=== PATIENT | male | born 1950 | race Caucasian/White ===

== ENCOUNTER → 2018-01-13 | Outpatient (CLI) | payer MEDICARE ==
--- NOTE | 2018-01-22 14:12 | MR ---
EXAMINATION TYPE: MR brain wo/w con DATE OF EXAM: 01/13/2018 9:10 AM COMPARISON: Outside report dated 09/26/2016. Previous outside study has been requested however has not arrived. An addendum will gladly be issued when and if the prior study is available for review. HISTORY: Hydrocephalus, unspecified CONTRAST: Patient received 12.5 mL intravenous Gadavist gadolinium contrast. Multiplanar and multispin-echo imaging of the brain was performed . Pre and post contrast enhanced i mages are obtained. The ventricles, basal cisterns and sulci overlying the cerebral convexities are moderately enlarged. Right parietal occipital approach ventriculostomy catheter is noted. There is accompanying susceptib ility artifact which limits evaluation in the surrounding region. There is evidence of mild periventricular white matter ischemic demyelination. Remote deep white matter insults are also noted. No acute edema is seen on diffusion weighted imaging. There is no evidence for midline shift or mass effect. Acute intracranial hemorrhage or extra-axial collection is not evident. Previously noted subdural c ollection on the left has resolved in the interval. No dural thickening present at this time. No enhancing lesions are seen. The paranasal sinuses and mastoid air cells are well-aerated. IMPRESSION: 1. Moderate ventricular caliber. 2. Right-sided parietal occipital approach ventriculostomy catheter. 3. Periventricular white matter ischemic demyelination is noted. 4. Previously described left-sided subdural collection has resolved. No dural thickening seen at this time.
== END | disposition home or self-care (01) ==
LOC: RADMRIMAIN 07:47
PROVIDERS: ATTEND Internal Medicine
DX: G37.8 Other specified demyelinating diseases of central nervous system (principal); R90.89 Other abnormal findings on diagnostic imaging of central nervous system; Z98.2 Presence of cerebrospinal fluid drainage device; G91.1 Obstructive hydrocephalus
CPT/HCPCS: 82565; 70553; 36415; A9581

== ENCOUNTER 2018-09-25 10:07 | Emergency (ER) | payer MEDICARE ==
[2018-09-25] MEDS ORDERED: SODIUM CHLORIDE 0.9% 500 ML 500 ML IV ONE (10:37)
[2018-09-25 10:51] LABS: Anisocytosis Slight; Basophils % (A) 0 %; Eosinophils # (A) 0.1 k/uL (0-0.7); Eosinophils % (A) 3 %; HCT 20.3 % (39.0-53.0); Hypochromasia Slight; Lymphocytes # (A) 0.5 k/uL (1.0-4.8); Lymphocytes % (A) 13 %; MCH 31.3 pg (25.0-35.0); MCHC 32.4 g/dL (31.0-37.0); MCV 96.4 fL (80.0-100.0); Macrocytosis Slight; Mean Platelet Volume 7.4; Monocytes # (A) 0.2 k/uL (0-1.0); Monocytes % (A) 5 %; Neutrophils # (A) 2.9 k/uL (1.3-7.7); Neutrophils % (A) 74 %; Platelet Count 180 k/uL (150-450); Poikilocytosis Slight; RDW 18.4 % (11.5-15.5); WBC 3.8 k/uL (3.8-10.6)
--- NOTE | 2018-09-25 10:53 | ED ---
General Adult HPI - General Chief complaint: Recheck/Abnormal Lab/Rx Stated complaint: low hemoglobin Time Seen by Provider: 09/25/18 10:10 Source: patient, family, EMS, RN notes reviewed Mode of arrival: EMS Limitations: no limitations - History of Present Illness Initial comments: This a 67-year-old male who presents emergency Department with a past medical history significant for normal pressure hydrocephalus patient states he does have a stent in place. Patient comes in today because the doctor sent him in because his hemoglobin is low. According to the though he has been having hallucinating auditorily and visually. Patient is also been a little unstable on his feet as well as had a little bit of incontinence over the last couple of weeks. states she's also experienced extreme tiredness and fatigue. Patient states he has not had any low hemoglobin in the past he has not had any kidney failure in the past. Patient did state he fell a few months ago and has a large lump on the right lower back above the pelvis and he was told it was a probable hematoma but is still there and is going down but it is still there. Patient denies any recent fever chills or cough per patient denies any chest pain difficulty breathing or shortness of breath. Patient states he does get short of breath if he exerts himself. Patient denies any leg swelling or Tenderness. Patient denies abdominal pain. - Related Data Home Medications Medication Instructions Recorded Confirmed Apixaban [Eliquis] 5 mg PO DAILY 09/25/18 09/25/18 Aspirin [[place] Aspirin EC] 81 mg PO DAILY 09/25/18 09/25/18 Carvedilol [Coreg] 12.5 mg PO BID 09/25/18 09/25/18 Lisinopril [Prinivil] 20 mg PO DAILY 09/25/18 09/25/18 Lovastatin [Mevacor] 20 mg PO DAILY 09/25/18 09/25/18 Tiotropium [place] [Spiriva] 1 cap INHALATION DAILY PRN 09/25/18 09/25/18 Vit C/E/Zn/Coppr/Lutein/Zeaxan 1 cap PO DAILY 09/25/18 09/25/18 [Preservision Areds 2 Softgel] buPROPion XL [Wellbutrin Xl] 300 mg PO DAILY 09/25/18 09/25/18 metFORMIN HCL [Glucophage] 1,000 mg PO BID 09/25/18 09/25/18 Allergies Allergy/AdvReac Type Severity Reaction Status Date / Time No Known Allergies Allergy Verified 09/25/18 10:33 Review of Systems ROS Statement: Those systems with pertinent positive or pertinent negative responses have been documented in the HPI. ROS Other: All systems not noted in ROS Statement are negative. 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 Patient is nontoxic and well- hydrated and is in mild distress. ENT: There is no thyroid enlargement and no masses were felt. EYES: The sclera were anicteric and conjunctiva were pink and moist. Extraocular movements were intact and pupils were equal round and reactive to light. Eyelids were unremarkable. PULMONARY: Unlabored respirations. Good breath sounds bilaterally. No audible rales rh onchi or wheezing was noted. CARDIOVASCULAR: There is a regular rate and rhythm without any murmurs gallops or rubs. RECTAL: Rectal exam had normal looking brown stool no obvious abnormalities were seen. ABDOMEN: Soft and nontender with normal bowel sounds. No palpable organomegaly was noted. There is no palpable pulsatile mass. SKIN: Skin was pale NEUROLOGIC: Patient is alert and oriented x3. Cranial nerves II through XII are grossly intact. Motor and sensory are also intact. Normal speech, volume and content. Symmetrical smile. MUSCULOSKELETAL: Normal extremities with adequate strength and full range of motion. No lower extremity swelling or edema. No calf tenderness. LYMPHATICS: No significant lymphadenopathy is noted PSYCHIATRIC: Patient agrees he's been having auditory and visual hallucinations. Limitations: no limitations Course Vital Signs 09/25/18 09/25/18 09/25/18 10:08 11:00 11:30 Temperature 97.8 F Pulse Rate 81 74 78 Respiratory 18 18 18 Rate Blood Pressure 112/67 105/67 114/72 O2 Sat by Pulse 98 98 99 Oximetry 09/25/18 12:00 Temperature Pulse Rate 69 Respiratory 19 Rate Blood Pressure 105/67 O2 Sat by Pulse 98 Oximetry Medical Decision Making - Medical Decision Making EKG shows normal sinus rhythm at 69 bpm LA interval is 164 QRS is 102 QT interval 384 QTC is 411. Patient's EKG shows no ST segment elevation or depression or T wave abnormalities are noted. CT of the brain shows no signs of hydrocephalus. CT of the abdomen shows questionable left lower quadrant diverticulitis however patient has no pain no white count no fever. Chest x-ray shows no acute abnormalities. Patient's guaiac was negative but he was anemic. I gave the patient 1 unit of blood prior to transfer. Family wanted to be transferred to [facility]. I spoke with Dr. Gonzalez at [facility] today except the patient I transfer the patient. - Lab Data Result diagrams: 09/25/18 10:20 09/25/18 10:40 Lab Results 09/25/18 09/25/18 09/25/18 Range/Units 10:20 10:20 10:30 WBC 3.8 (3.8-10.6) k/uL RBC 2.10 L (4.30-5.90) m/uL Hgb 6.6 L* (13.0-17.5) gm/dL Hct 20.3 L (39.0-53.0) % MCV 96.4 (80.0-100.0) fL MCH 31.3 (25.0-35.0) pg MCHC 32.4 (31.0-37.0) g/dL RDW 18.4 H (11.5-15.5) % Plt Count 180 (150-450) k/uL Neutrophils % 74 % Lymphocytes % 13 % Monocytes % 5 % Eosinophils % 3 % Basophils % 0 % Neutrophils # 2.9 (1.3-7.7) k/uL Lymphocytes # 0.5 L (1.0-4.8) k/uL Monocytes # 0.2 (0-1.0) k/uL Eosinophils # 0.1 (0-0.7) k/uL Basophils # 0.0 (0-0.2) k/uL Hypochromasia Slight Poikilocytosis Slight Anisocytosis Slight Macrocytosis Slight PT (9.0-12.0) sec INR (<1.2) APTT (22.0-30.0) sec Sodium (137-145) mmol/L Potassium (3.5-5.1) mmol/L Chloride (98-107) mmol/L Carbon Dioxide (22-30) mmol/L Anion Gap mmol/L BUN (9-20) mg/dL Creatinine (0.66-1.25) mg/dL Est GFR (CKD-EPI)AfAm (>60 ml/min/1.73 sqM) Est GFR (CKD-EPI)NonAf (>60 ml/min/1.73 sqM) Glucose (74-99) mg/dL Calcium (8.4-10.2) mg/dL Total Bilirubin (0.2-1.3) mg/dL AST (17-59) U/L ALT (21-72) U/L Alkaline Phosphatase (38-126) U/L Troponin I (0.000-0.034) ng/mL Total Protein (6.3-8.2) g/dL Albumin (3.5-5.0) g/dL Urine Color Urine Appearance (Clear) Urine pH (5.0-8.0) Ur Specific [place] (1.001-1.035) Urine Protein (Negative) Urine Glucose (UA) (Negative) Urine Ketones (Negative) Urine Blood (Negative) Urine Nitrite (Negative) Urine Bilirubin (Negative) Urine Urobilinogen (<2.0) mg/dL Ur Leukocyte Esterase (Negative) Urine WBC (0-5) /hpf Urine Mucus (None) /hpf Stool Occult Blood (Negative) Blood Type O Positive Blood Type Confirm O Positive Blood Type Recheck CABO Indicated Antibody Screen NEGATIVE Crossmatch See Detail Spec Expiration Date 09/28/2018233609/25/18 09/25/18 09/25/18 Range/Units 10:40 10:40 10:40 WBC (3.8-10.6) k/uL RBC (4.30-5.90) m/uL Hgb (13.0-17.5) gm/dL Hct (39.0-53.0) % MCV (80.0-100.0) fL MCH (25.0-35.0) pg MCHC (31.0-37.0) g/dL RDW (11.5-15.5) % Plt Count (150-450) k/uL Neutrophils % % Lymphocytes % % Monocytes % % Eosinophils % % Basophils % % Neutrophils # (1.3-7.7) k/uL Lymphocytes # (1.0-4.8) k/uL Monocytes # (0-1.0) k/uL Eosinophils # (0-0.7) k/uL Basophils # (0-0.2) k/uL Hypochromasia Poikilocytosis Anisocytosis Macrocytosis PT 12.4 H (9.0-12.0) sec INR 1.2 H (<1.2) APTT 20.7 L (22.0-30.0) sec Sodium 139 (137-145) mmol/L Potassium 3.7 (3.5-5.1) mmol/L Chloride 107 (98-107) mmol/L Carbon Dioxide 23 (22-30) mmol/L Anion Gap 9 mmol/L BUN 22 H (9-20) mg/dL Creatinine 2.04 H (0.66-1.25) mg/dL Est GFR (CKD-EPI)AfAm 37 (>60 ml/min/1.73 sqM) Est GFR (CKD-EPI)NonAf 32 (>60 ml/min/1.73 sqM) Glucose 139 H (74-99) mg/dL Calcium 10.0 (8.4-10.2) mg/dL Total Bilirubin 0.5 (0.2-1.3) mg/dL AST 26 (17-59) U/L ALT 37 (21-72) U/L Alkaline Phosphatase 114 (38-126) U/L Troponin I 0.062 H* (0.000-0.034) ng/mL Total Protein 8.1 (6.3-8.2) g/dL Albumin 3.1 L (3.5-5.0) g/dL Urine Color Urine Appearance (Clear) Urine pH (5.0-8.0) Ur Specific [place] (1.001-1.035) Urine Protein (Negative) Urine Glucose (UA) (Negative) Urine Ketones (Negative) Urine Blood (Negative) Urine Nitrite (Negative) Urine Bilirubin (Negative) Urine Urobilinogen (<2.0) mg/dL Ur Leukocyte Esterase (Negative) Urine WBC (0-5) /hpf Urine Mucus (None) /hpf Stool Occult Blood (Negative) Blood Type Blood Type Confirm Blood Type Recheck Antibody Screen Crossmatch Spec Expiration Date 09/25/18 09/25/18 Range/Units 10:40 13:27 WBC (3.8-10.6) k/uL RBC (4.30-5.90) m/uL Hgb (13.0-17.5) gm/dL Hct (39.0-53.0) % MCV (80.0-100.0) fL MCH (25.0-35.0) pg MCHC (31.0-37.0) g/dL RDW (11.5-15.5) % Plt Count (150-450) k/uL Neutrophils % % Lymphocytes % % Monocytes % % Eosinophils % % Basophils % % Neutrophils # (1.3-7.7) k/uL Lymphocytes # (1.0-4.8) k/uL Monocytes # (0-1.0) k/uL Eosinophils # (0-0.7) k/uL Basophils # (0-0.2) k/uL Hypochromasia Poikilocytosis Anisocytosis Macrocytosis PT (9.0-12.0) sec INR (<1.2) APTT (22.0-30.0) sec Sodium (137-145) mmol/L Potassium (3.5-5.1) mmol/L Chloride (98-107) mmol/L Carbon Dioxide (22-30) mmol/L Anion Gap mmol/L BUN (9-20) mg/dL Creatinine (0.66-1.25) mg/dL Est GFR (CKD-EPI)AfAm (>60 ml/min/1.73 sqM) Est GFR (CKD-EPI)NonAf (>60 ml/min/1.73 sqM) Glucose (74-99) mg/dL Calcium (8.4-10.2) mg/dL Total Bilirubin (0.2-1.3) mg/dL AST (17-59) U/L ALT (21-72) U/L Alkaline Phosphatase (38-126) U/L Troponin I (0.000-0.034) ng/mL Total Protein (6.3-8.2) g/dL Albumin (3.5-5.0) g/dL Urine Color Light Yellow Urine Appearance Clear (Clear) Urine pH 6.5 (5.0-8.0) Ur Specific [place] 1.012 (1.001-1.035) Urine Protein 1+ H (Negative) Urine Glucose (UA) 2+ H (Negative) Urine Ketones Negative (Negative) Urine Blood Trace H (Negative) Urine Nitrite Negative (Negative) Urine Bilirubin Negative (Negative) Urine Urobilinogen <2.0 (<2.0) mg/dL Ur Leukocyte Esterase Negative (Negative) Urine WBC 1 (0-5) /hpf Urine Mucus Rare H (None) /hpf Stool Occult Blood Negative (Negative) Blood Type Blood Type Confirm Blood Type Recheck Antibody Screen Crossmatch Spec Expiration Date Critical Care Time Critical Care Time: Yes Total Critical Care Time: 35 Disposition Clinical Impression: Anemia, Normal pressure hydrocephalus, Altered mental status Disposition: OTHER INSTITUTION NOT DEFINED Referrals: Jane Escobar MD [Primary Care Provider] - 1-2 days Time of Disposition: 14:11 - Out of Hospital Transfer - Req. Specs Out of Hospital Transfer - Requested Specifics: Other Emergency Center ([facility])
[2018-09-25 10:58] LABS: HGB 6.6 gm/dL (13.0-17.5)
[2018-09-25 11:06] LABS: INR 1.2 (<1.2); Prothrombin Time 12.4 sec (9.0-12.0)
--- NOTE | 2018-09-25 11:09 | CT ---
EXAMINATION TYPE: CT brain wo con DATE OF EXAM: 09/25/2018 COMPARISON: MRI brain 09/26/2016 INDICATION: Weakness and fatigue. DLP: 1158.4 mGycm, Automated exposure control for dose reduction was used. CONTRAST: None CT of the brain is performed utilizing 3 mm thick sections through the posterior fossa and 3 mm thick sections through the remaining calvarium. Study is performed within 24 hours of arrival to the hosp ital. No abnormal hyperdensity is present to suggest an acute intracranial hemorrhage. No mass lesion is evident. No acute infarcts are evident. Some periventricular white matter hypodensity is likely present most l ikely on the basis of chronic white matter ischemic changes. Note is made of a shunt catheter within the right parietal-occipital region extending into the right lateral ventricle. Ventricles and sulci are slightly prominent for the patient age. Paranasal sinuses and mastoid air cells within the [id number]-aj-mide are clear. IMPRESSIONS: 1. Stable shunt catheter on the right. No temporal horn dilatation to suggest hydrocephalus is evid ent. 2. Mild periventricular white matter ischemic type changes.
--- NOTE | 2018-09-25 11:11 | XR ---
EXAMINATION TYPE: XR chest 2V DATE OF EXAM: 09/25/2018 COMPARISON: None INDICATION: Low hemoglobin hypertension TECHNIQUE: Frontal and lateral views of the chest are obtained. FINDINGS: The heart size is mildly prominent. The pulmonary vasculature is normal. The lungs are clear. Catheter transverses the thorax on the right. IMPRESSION: 1. No acute pulmonary process. 2. Mild prominence of cardiomediastinal silhouette.
[2018-09-25 11:14] LABS: Albumin 3.1 g/dL (3.5-5.0); Potassium 3.7 mmol/L (3.5-5.1); Total Bilirubin 0.5 mg/dL (0.2-1.3); Total Protein 8.1 g/dL (6.3-8.2)
[2018-09-25 11:27] LABS: Partial Thromboplastin Time 20.7 sec (22.0-30.0)
--- NOTE | 2018-09-25 12:10 | CT ---
EXAMINATION TYPE: CT abdomen pelvis wo con DATE OF EXAM: 09/25/2018 COMPARISON: None INDICATION: Weakness, fatigue and low back pain DLP: 1323.4 mGycm, Automated exposure control for dose reduction was used. CONTRAST: 0 mL of Isovue 300. Study performed without Oral Contrast TECHNIQUE: Axial images were obtained from above the diaphragm to the pubic rami in the axial plane a t 5 mm thick sections. Reconstructed images are reviewed on the computer in the coronal plane. FINDINGS: Limited CT sections are obtained the lung bases. The lung bases are clear. Coronary artery calcific ations present. CT ABDOMEN: Liver: Normal Spleen: Normal Pancreas: Normal Adrenal glands: The adrenal glands are normal. Gallbladder: Normal Kidneys: No masses are evident. No hydronephrosis is present. There may be a 2.5 cm cyst in the ant erior mid right kidney measuring 22 Hounsfield units. This is not a simple cyst monitoring is recomme nded. Small cortical renal cysts likely at the inferior anterior pole right kidney. Delayed images w ere obtained through the kidneys, which remain unremarkable. Aorta: Vascular calcification is within the aorta. Inferior vena cava: Normal. CT PELVIS: Loops of bowel within the abdomen and pelvis are normal. Loops of bowel are without contrast caus ing limitation of the evaluation. Note is made of scattered diverticuli throughout the sigmoid colon. Some minimal inflammatory change may be adjacent to the descending colon diverticulum. A mild divert iculitis should be considered. A small amount fluid is within the bilateral paracolic gutters. Appendix: Normal as visualized. Urinary bladder: Normal. Genitourinary structures: Prostate appears unremarkable. Osseous structures: Degenerative disc changes through the lumbar spine. There is degenerative joint c hanges at bilateral hips. IMPRESSIONS: 1. Clinical correlation recommended for very mild diverticulitis in the left lower quadrant. 2. Suspected cysts within the right kidney. These are not all simple and monitoring with ultrasound i s recommended.
[2018-09-25 14:06] LABS: Appearance,Urine Clear (Clear); Bilirubin,Urine Negative (Negative); Blood,Urine Trace (Negative); Color,Urine Light Yellow; Glucose,Urine (UA) 2+ (Negative); Ketones,Urine Negative (Negative); Leukocyte Esterase,Urine Negative (Negative); Mucus,Urine Rare /hpf; Nitrite,Urine Negative (Negative); PH, Urine 6.5 (5.0-8.0); Protein,Urine 1+ (Negative); Specific Gravity,Urine 1.012 (1.001-1.035); Urobilinogen,Urine <2.0 mg/dL (<2.0); WBC,Urine 1 /hpf (0-5)
[2018-09-25 14:27] LABS: Amphetamine Screen,Urine Not Detected (NotDetected); Barbiturate Screen,Urine Not Detected (NotDetected); Benzodiazepines Screen,Urine Not Detected (NotDetected); Cocaine Screen,Urine Not Detected (NotDetected); Methadone Screen, Urine Not Detected (NotDetected); Opiate Screen,Urine Not Detected (NotDetected); Oxycodone Screen, Urine Not Detected (NotDetected); Phencyclidine Screen,Urine Not Detected (NotDetected); Tricyclic Antidepressant,Urine Not Detected (NotDetected); Urn Cannabinoid Scrn Not Detected (NotDetected)
[2018-09-25 14:29] VITALS: TEMP 97.9
[2018-09-25 15:09] VITALS: BP 122/86; PULSE 80; RESP 16
== END 2018-09-25 15:17 | disposition short-term general hospital (02) ==
LOC: EC 10:07
DX: D64.9 Anemia, unspecified (principal); G91.2 (Idiopathic) normal pressure hydrocephalus; R44.0 Auditory hallucinations; R44.1 Visual hallucinations; R22.2 Localized swelling, mass and lump, trunk; E11.9 Type 2 diabetes mellitus without complications; I10 Essential (primary) hypertension; Z87.891 Personal history of nicotine dependence; Z79.01 Long term (current) use of anticoagulants; Z79.82 Long term (current) use of aspirin; Z79.84 Long term (current) use of oral hypoglycemic drugs; Z79.899 Other long term (current) drug therapy; Z98.2 Presence of cerebrospinal fluid drainage device; Z91.81 History of falling
CPT/HCPCS: 36415; 93005; 86900; 86901; 80053; 84484; 85025; 85610; 85730; 86850; 86920; 82272; 81001; 80306; 71046; 70450; 74176; 99291; 96360; 96361 ×3; P9016

== ENCOUNTER 2018-11-20 10:13 | Inpatient (IN) | payer MEDICARE ==
[2018-11-20] MEDS ORDERED: SODIUM CHLORIDE 0.9% 1,000 ML IV STA ×3 (10:23→11:53)
--- NOTE | 2018-11-20 10:38 | ED ---
Weakness HPI - General Chief complaint: Weakness Stated complaint: weakness Time Seen by Provider: 11/20/18 10:17 Source: patient, EMS, RN notes reviewed, old records reviewed Mode of arrival: EMS Limitations: physical limitation - History of Present Illness Initial comments: This is a 66-year-old male who was brought in by EMS for generalized weakness and orthostatic hypotension. Patient was found have a hematoma on the right posterior thigh after this he stated he missed the toilet seat sitting down earlier in the week. He was seen by his doctor yesterday was it would be fine. Today he was feeling lightheaded generally weak he does complain some pain over the thigh. He also admits he has not been drinking much fluid that he did eat breakfast this morning. No fevers chills nausea vomiting sweats no palpitations though he does have a history of atrial fibrillation. He is on blood thinners. No other modifying factors or complaints this time. Per paramedics she did have a systolic blood pressure initially of 60 MD Complaint: generalized weakness - Related Data Home Medications Medication Instructions Recorded Confirmed Lisinopril [Prinivil] 20 mg PO DAILY 09/25/18 11/20/18 Lovastatin [Mevacor] 20 mg PO DAILY 09/25/18 11/20/18 Tiotropium [place] [Spiriva] 1 cap INHALATION RT-DAILY PRN 09/25/18 11/20/18 Vit C/E/Zn/Coppr/Lutein/Zeaxan 1 cap PO DAILY 09/25/18 11/20/18 [Preservision Areds 2 Softgel] metFORMIN HCL [Glucophage] 1,000 mg PO BID 09/25/18 11/20/18 Acetaminophen [Tylenol] 500 mg PO Q6H PRN 11/20/18 11/20/18 Acyclovir [Zovirax] 400 mg PO BID 11/20/18 11/20/18 Budesonide-Formot 160-4.5 Mcg 2 puff INHALATION RT-BID 11/20/18 11/20/18 [Symbicort 160-4.5 Mcg Inhaler] Carvedilol [Coreg] 3.125 mg PO BID 11/20/18 11/20/18 Dexamethasone [Decadron] 4 mg PO VALVERDE 11/20/18 11/20/18 Folic Acid 1 mg PO DAILY 11/20/18 11/20/18 Lovastatin [Mevacor] 20 mg PO DAILY 11/20/18 11/20/18 Magnesium Oxide [Mag-Ox] 400 mg PO DAILY 11/20/18 11/20/18 Melatonin 3 mg PO HS PRN 11/20/18 11/20/18 Omeprazole [PriLOSEC] 20 mg PO DAILY 11/20/18 11/20/18 Prochlorperazine [Compazine] 10 mg PO DAILY PRN 11/20/18 11/20/18 QUEtiapine FUMARATE [SEROquel] 25 mg PO HS 11/20/18 11/20/18 Sulfamethox-Tmp 800-160Mg [Bactrim 1 tab PO MOWEFR 11/20/18 11/20/18 DS 800-160 mg] Thiamine Mononitrate (Vit B1) 100 mg PO DAILY 11/20/18 11/20/18 [Vitamin B-1] buPROPion [Wellbutrin] 300 mg PO DAILY 11/20/18 11/20/18 Allergies Allergy/AdvReac Type Severity Reaction Status Date / Time No Known Allergies Allergy Verified 11/20/18 10:35 Review of Systems ROS Statement: Those systems with pertinent positive or pertinent negative responses have been documented in the HPI. ROS Other: All systems not noted in ROS Statement are negative. Past Medical History Past Medical History: Atrial Fibrillation, Diabetes Mellitus, Hypertension Additional Past Medical History / Comment(s): hydrocephalus History of Any Multi-Drug Resistant Organisms: None Reported Additional Past Surgical History / Comment(s): [employer]E SEWER shunt Past Psychological History: No Psychological Hx Reported Smoking Status: Former smoker Past Alcohol Use History: Occasional Past Drug Use History: None Reported General Exam - General Exam Comments Initial Comments: This is a well-developed well-nourished awake alert oriented 3 male Limitations: physical limitation General appearance: alert, in no apparent distress Head exam: Present: atraumatic, normocephalic, normal inspection Eye exam: Present: normal appearance, PERRL, EOMI. Absent: scleral icterus, conjunctival injection, periorbital swelling ENT exam: Present: mucous membranes dry Neck exam: Present: normal inspection, full ROM, other (No stridor JVD or bruits). Absent: tenderness, meningismus, lymphadenopathy Respiratory exam: Present: normal lung sounds bilaterally. Absent: respiratory distress, wheezes, rales, rhonchi, stridor Cardiovascular Exam: Present: irregular rhythm. Absent: systolic murmur, diastolic murmur, rubs, gallop, clicks GI/Abdominal exam: Present: soft, normal bowel sounds. Absent: distended, tenderness, guarding, rebound, rigid Extremities exam: Present: full ROM, tenderness, normal capillary refill, other (There is a large hematoma to the posterior right distal mid thigh minimal tenderness palpation). Absent: pedal edema, joint swelling, calf tenderness Back exam: Present: normal inspection Neurological exam: Present: alert, oriented X3, CN II-XII intact Psychiatric exam: Present: normal affect, normal mood Skin exam: Present: warm, dry, intact, normal color. Absent: rash Course Vital Signs 11/20/18 11/20/18 11/20/18 10:15 11:55 12:20 Temperature 97.9 F Pulse Rate 84 84 Respiratory 16 16 Rate Blood Pressure 106/84 79/56 117/84 O2 Sat by Pulse 96 100 Oximetry 11/20/18 12:53 Temperature Pulse Rate Respiratory 16 Rate Blood Pressure 108/73 O2 Sat by Pulse 100 Oximetry EKG Findings - EKG Results: EKG: interpreted by ERMD, sinus rhythm (Evidence a left axis deviation. The ventricular rate 102 QRS 100 QT since QTC 354/461) Medical Decision Making - Medical Decision Making I did discuss the findings with the patient's patient does have a recent diagnosis of multiple myeloma he did have a blood transfusion possibly 6 weeks ago. Hemoglobin was 7.2 down from 10.2 yesterday. Patient be admitted for evaluation dehydration and anemia the case was discussed with Dr. Mahajan - Lab Data Result diagrams: 11/20/18 10:20 11/20/18 10:20 Lab Results 11/20/18 11/20/18 11/20/18 Range/Units 10:20 10:20 10:20 WBC 10.6 (3.8-10.6) k/uL RBC 2.27 L (4.30-5.90) m/uL Hgb 7.2 L (13.0-17.5) gm/dL Hct 22.5 L (39.0-53.0) % MCV 99.2 (80.0-100.0) fL MCH 32.0 (25.0-35.0) pg MCHC 32.2 (31.0-37.0) g/dL RDW 17.6 H (11.5-15.5) % Plt Count 132 L (150-450) k/uL Neutrophils % 90 % Lymphocytes % 4 % Monocytes % 4 % Eosinophils % 1 % Basophils % 0 % Neutrophils # 9.6 H (1.3-7.7) k/uL Lymphocytes # 0.4 L (1.0-4.8) k/uL Monocytes # 0.4 (0-1.0) k/uL Eosinophils # 0.1 (0-0.7) k/uL Basophils # 0.0 (0-0.2) k/uL Anisocytosis Slight Macrocytosis Slight PT (9.0-12.0) sec INR (<1.2) APTT (22.0-30.0) sec Sodium 134 L (137-145) mmol/L Potassium 4.4 (3.5-5.1) mmol/L Chloride 105 (98-107) mmol/L Carbon Dioxide 20 L (22-30) mmol/L Anion Gap 9 mmol/L BUN 30 H (9-20) mg/dL Creatinine 1.29 H (0.66-1.25) mg/dL Est GFR (CKD-EPI)AfAm 65 (>60 ml/min/1.73 sqM) Est GFR (CKD-EPI)NonAf 56 (>60 ml/min/1.73 sqM) Glucose 89 (74-99) mg/dL Plasma Lactic Acid Deven 3.4 H* (0.7-2.0) mmol/L Calcium 7.7 L (8.4-10.2) mg/dL Magnesium 1.9 (1.6-2.3) mg/dL Total Bilirubin 0.5 (0.2-1.3) mg/dL AST 16 L (17-59) U/L ALT 22 (21-72) U/L Alkaline Phosphatase 76 (38-126) U/L Creatine Kinase 137 (55-170) U/L Troponin I (0.000-0.034) ng/mL Total Protein 5.0 L (6.3-8.2) g/dL Albumin 2.9 L (3.5-5.0) g/dL Urine Color Urine Appearance (Clear) Urine pH (5.0-8.0) Ur Specific [place] (1.001-1.035) Urine Protein (Negative) Urine Glucose (UA) (Negative) Urine Ketones (Negative) Urine Blood (Negative) Urine Nitrite (Negative) Urine Bilirubin (Negative) Urine Urobilinogen (<2.0) mg/dL Ur Leukocyte Esterase (Negative) 11/20/18 11/20/18 11/20/18 Range/Units 10:20 10:20 11:50 WBC (3.8-10.6) k/uL RBC (4.30-5.90) m/uL Hgb (13.0-17.5) gm/dL Hct (39.0-53.0) % MCV (80.0-100.0) fL MCH (25.0-35.0) pg MCHC (31.0-37.0) g/dL RDW (11.5-15.5) % Plt Count (150-450) k/uL Neutrophils % % Lymphocytes % % Monocytes % % Eosinophils % % Basophils % % Neutrophils # (1.3-7.7) k/uL Lymphocytes # (1.0-4.8) k/uL Monocytes # (0-1.0) k/uL Eosinophils # (0-0.7) k/uL Basophils # (0-0.2) k/uL Anisocytosis Macrocytosis PT 10.9 (9.0-12.0) sec INR 1.0 (<1.2) APTT 28.1 (22.0-30.0) sec Sodium (137-145) mmol/L Potassium (3.5-5.1) mmol/L Chloride (98-107) mmol/L Carbon Dioxide (22-30) mmol/L Anion Gap mmol/L BUN (9-20) mg/dL Creatinine (0.66-1.25) mg/dL Est GFR (CKD-EPI)AfAm (>60 ml/min/1.73 sqM) Est GFR (CKD-EPI)NonAf (>60 ml/min/1.73 sqM) Glucose (74-99) mg/dL Plasma Lactic Acid Deven (0.7-2.0) mmol/L Calcium (8.4-10.2) mg/dL Magnesium (1.6-2.3) mg/dL Total Bilirubin (0.2-1.3) mg/dL AST (17-59) U/L ALT (21-72) U/L Alkaline Phosphatase (38-126) U/L Creatine Kinase (55-170) U/L Troponin I 0.019 (0.000-0.034) ng/mL Total Protein (6.3-8.2) g/dL Albumin (3.5-5.0) g/dL Urine Color Yellow Urine Appearance Clear (Clear) Urine pH 5.5 (5.0-8.0) Ur Specific [place] 1.029 (1.001-1.035) Urine Protein Trace H (Negative) Urine Glucose (UA) 3+ H (Negative) Urine Ketones Negative (Negative) Urine Blood Negative (Negative) Urine Nitrite Negative (Negative) Urine Bilirubin Negative (Negative) Urine Urobilinogen 2.0 (<2.0) mg/dL Ur Leukocyte Esterase Negative (Negative) - Radiology Data Radiology results: report reviewed (Imaging reviewed hematoma noted), image reviewed Disposition Clinical Impression: Orthostatic hypotension, Symptomatic anemia, Dehydration, History of multiple myeloma Disposition: ADMITTED IP TO THIS [facility] Condition: Stable Referrals: Jane Escobar MD [Primary Care Provider] - 1-2 days
[2018-11-20 10:39] LABS: Anisocytosis Slight; Basophils % (A) 0 %; Eosinophils # (A) 0.1 k/uL (0-0.7); Eosinophils % (A) 1 %; HCT 22.5 % (39.0-53.0); HGB 7.2 gm/dL (13.0-17.5); Lymphocytes # (A) 0.4 k/uL (1.0-4.8); Lymphocytes % (A) 4 %; MCHC 32.2 g/dL (31.0-37.0); MCV 99.2 fL (80.0-100.0); Macrocytosis Slight; Mean Platelet Volume 8.2; Monocytes # (A) 0.4 k/uL (0-1.0); Monocytes % (A) 4 %; Neutrophils # (A) 9.6 k/uL (1.3-7.7); Neutrophils % (A) 90 %; Platelet Count 132 k/uL (150-450); RBC 2.27 m/uL (4.30-5.90); RDW 17.6 % (11.5-15.5); WBC 10.6 k/uL (3.8-10.6)
[2018-11-20 10:49] LABS: Partial Thromboplastin Time 28.1 sec (22.0-30.0); Prothrombin Time 10.9 sec (9.0-12.0)
[2018-11-20 10:53] LABS: Albumin 2.9 g/dL (3.5-5.0); Calcium 7.7 mg/dL (8.4-10.2); Magnesium 1.9 mg/dL (1.6-2.3); Potassium 4.4 mmol/L (3.5-5.1); Total Bilirubin 0.5 mg/dL (0.2-1.3)
--- NOTE | 2018-11-20 11:24 | XR ---
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 Low lung volumes with crowded vascular markings. Mild diffuse intersti tial prominence is unchanged. Heart mildly enlarged. No consolidation or pleural effusion seen. IMPRESSION: Hypoventilatory and chronic changes. Similar mild cardiomegaly. No definite acute process.
[2018-11-20 12:03] LABS: Appearance,Urine Clear (Clear); Bilirubin,Urine Negative (Negative); Blood,Urine Negative (Negative); Color,Urine Yellow; Glucose,Urine (UA) 3+ (Negative); Ketones,Urine Negative (Negative); Leukocyte Esterase,Urine Negative (Negative); Nitrite,Urine Negative (Negative); PH, Urine 5.5 (5.0-8.0); Protein,Urine Trace (Negative); Specific Gravity,Urine 1.029 (1.001-1.035)
--- NOTE | 2018-11-20 13:27 | US ---
EXAMINATION TYPE: US venous doppler duplex LE RT DATE OF EXAM: 11/20/2018 12:55 PM COMPARISON: NONE CLINICAL HISTORY: Pain. Patient fell and hit right leg, large amount of bruising and discoloration ri ght lateral thigh extending into upper calf SIDE PERFORMED: right TECHNIQUE: The lower extremity deep venous system is examined utilizing real time linear array sonog savanna with graded compression, doppler sonography and color-flow sonography. VESSELS IMAGED: External Iliac Vein (EIV) Common Femoral Vein Deep Femoral Vein Greater Saphenous Vein * Femoral Vein Popliteal Vein Small Saphenous Vein * Proximal Calf Veins (* superficial vessels) Grayscale, color doppler, spectral doppler imaging performed of the deep veins of the right lower ext remity. There is normal flow, compressibility, vascular waveforms. Right Leg: *technical limitations due to large amount of soft tissue edema. No evidence of acute DVT as visualized. Within area of concern, right thigh, complex hypoechoic area = 23.2 x 6.6 x 10.3cm IMPRESSION: 1. No sonographic evidence of deep venous arthrosis within the right lower extremity. 2. Large degree of soft tissue edema and complex fluid collection measuring up to 23.2 cm in the area of concern within the right thigh. This is avascular and presumed to represent a large hematoma in t his patient with recent trauma. However given its large size this should be followed closely clinical ly to ensure decreasing size otherwise MRI with contrast would be recommended to exclude sarcoma or o ther lesion such as a Angel-Lavellee lesion.
[2018-11-20] MEDS ORDERED: NALOXONE 0.4 MG/ML 1 ML VIAL IV PRN (13:31)
[2018-11-20] MEDS ORDERED: IPRATROPIUM 0.5 MG/2.5 ML NEBU INHALATION PRN (13:33)
[2018-11-20] MEDS ORDERED: PROCHLORPERAZINE 10 MG TAB PO PRN (13:33)
[2018-11-20 17:13] LABS: Glucose,Whole Blood 175 mg/dL (75-99)
[2018-11-20] MEDS: SULFAMETHOX-TMP 800-160MG 1 EACH TAB PO SCH (18:05)
[2018-11-20] MEDS: metFORMIN 500 MG TAB PO SCH (18:08)
[2018-11-20] MEDS: CARVEDILOL 3.125 MG TAB PO SCH (18:08)
[2018-11-20] MEDS: ACETAMINOPHEN TAB 500 MG TAB PO PRN (18:09)
--- NOTE | 2018-11-20 19:34 | P.HPIM ---
History of Present Illness H&P Date: 11/20/18 66-year-old male who was brought in by EMS for generalized weakness and orthostatic hypotension. Patient was found have a hematoma on the right posterior thigh after this he stated he missed the toilet seat sitting down earlier in the week. He was seen by his doctor yesterday was it would be fine. Today he was feeling lightheaded generally weak he does complain some pain over the thigh. He also admits he has not been drinking much fluid that he did eat breakfast this morning. No fevers chills nausea vomiting sweats no palpitations though he does have a history of atrial fibrillation. He is on blood thinners. No other modifying factors or complaints this time. Per paramedics she did have a systolic blood pressure initially of 60 Workup in ED with EKG showing sinus rhythm with left axis deviation and ventricular rate of 102 Lab work came back significant for hemoglobin of 7.2; patient does have diagnosis of multiple myeloma and had blood transfusion about 6 weeks ago; hemoglobin is down from 10.2 yesterday to 7.2 this morning; BUN/creatinine is elevated at 30/1.29 Patient is admitted to the hospital for further treatment Review of Systems Constitutional: Denies chills, Denies fever Eyes: denies blurred vision Ears, nose, mouth and throat: Denies epistaxis, Denies hoarseness Cardiovascular: Denies chest pain, Denies dyspnea on exertion Respiratory: Denies cough with sputum Gastrointestinal: Denies abdominal pain, Denies bloating, Denies coffee ground emesis Genitourinary: Denies discharge, Denies hematuria Musculoskeletal: Denies gait dysfunction Past Medical History Past Medical History: Atrial Fibrillation, Asthma, COPD, Diabetes Mellitus, Hypertension, Pneumonia Additional Past Medical History / Comment(s): Pt recently seen in [facility] ER on 09/25/18 for low hgb, R lower back hematoma, auditory and visual hallucinations, encephalopathy and [facility] pt was diagnosed with multiple myeloma stage III with bone lesions (bilateral hips/femurs and spine), cognitive deficit thought d/t cancer. Pt had aspiration pneumonia while there and was intubated/vented. He was septic. He also had falls. Other diagnosis while at [facility] include acute renal failure, anemia, bilateral lower extremity DVTs, spleenomegaly. He was started on chemotherapy. 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 Past Anesthesia/Blood Transfusion Reactions: No Reported Reaction Additional Past Anesthesia/Blood Transfusion Reaction / Comment(s): Pt has received blood without reaction. Date of Last Stent Placement:: 2008 in [facility] Smoking Status: Former smoker - Past Family History Father Additional Family Medical History / Comment(s): Father had NPH with a CHILD AND ADOLESCENT PSYCHOLOGIST shunt. He lived to be 84 yrs old. Mother Family Medical History: Deep Vein Thrombosis (DVT) Additional Family Medical History / Comment(s): Mother at the age of 62- suspect d/t DVTs. Medications and Allergies Home Medications Medication Instructions Recorded Confirmed Type Lisinopril [Prinivil] 20 mg PO DAILY 09/25/18 11/20/18 History Lovastatin [Mevacor] 20 mg PO DAILY 09/25/18 11/20/18 History Tiotropium [place] [Spiriva] 1 cap INHALATION RT-DAILY PRN 09/25/18 11/20/18 History Vit C/E/Zn/Coppr/Lutein/Zeaxan 1 cap PO DAILY 09/25/18 11/20/18 History [Preservision Areds 2 Softgel] metFORMIN HCL [Glucophage] 1,000 mg PO BID 09/25/18 11/20/18 History Acetaminophen [Tylenol] 500 mg PO Q6H PRN 11/20/18 11/20/18 History Acyclovir [Zovirax] 400 mg PO BID 11/20/18 11/20/18 History Budesonide-Formot 160-4.5 Mcg 2 puff INHALATION RT-BID 11/20/18 11/20/18 History [Symbicort 160-4.5 Mcg Inhaler] Carvedilol [Coreg] 3.125 mg PO BID 11/20/18 11/20/18 History Dexamethasone [Decadron] 4 mg PO VALVERDE 11/20/18 11/20/18 History Folic Acid 1 mg PO DAILY 11/20/18 11/20/18 History Lovastatin [Mevacor] 20 mg PO DAILY 11/20/18 11/20/18 History Magnesium Oxide [Mag-Ox] 400 mg PO DAILY 11/20/18 11/20/18 History Melatonin 3 mg PO HS PRN 11/20/18 11/20/18 History Omeprazole [PriLOSEC] 20 mg PO DAILY 11/20/18 11/20/18 History Prochlorperazine [Compazine] 10 mg PO DAILY PRN 11/20/18 11/20/18 History QUEtiapine FUMARATE [SEROquel] 25 mg PO HS 11/20/18 11/20/18 History Sulfamethox-Tmp 800-160Mg [Bactrim 1 tab PO MOWEFR 11/20/18 11/20/18 History DS 800-160 mg] Thiamine Mononitrate (Vit B1) 100 mg PO DAILY 11/20/18 11/20/18 History [Vitamin B-1] buPROPion [Wellbutrin] 300 mg PO DAILY 11/20/18 11/20/18 History Allergies Allergy/AdvReac Type Severity Reaction Status Date / Time No Known Allergies Allergy Verified 11/20/18 10:35 Physical Exam Vitals: Vital Signs Temp Pulse Resp BP Pulse Ox 11/20/18 16:32 100 16 114/82 98 11/20/18 16:04 98.4 F 99 16 102/76 98 11/20/18 15:34 98.4 F 99 16 117/68 11/20/18 15:24 97.8 F 92 16 114/70 11/20/18 15:05 97.7 F 88 16 110/65 98 11/20/18 14:04 89 16 105/83 98 11/20/18 12:53 16 108/73 100 11/20/18 12:20 84 16 117/84 100 11/20/18 11:55 79/56 11/20/18 10:15 97.9 F 84 16 106/84 96 Intake and Output 11/20/18 11/20/18 11/20/18 06:59 14:59 22:59 Intake Total 0 Balance 0 Intake: Blood Product 0 Rc As-1 Unit 0 [id number] Other: Weight 140.16 kg This is a well-developed well-nourished awake alert oriented 3 male Limitations: physical limitation General appearance: alert, in no apparent distress Head exam: Present: atraumatic, normocephalic, normal inspection Eye exam: Present: normal appearance, PERRL, EOMI. Absent: scleral icterus, conjunctival injection, periorbital swelling ENT exam: Present: mucous membranes dry Neck exam: Present: normal inspection, full ROM, other (No stridor JVD or bruits). Absent: tenderness, meningismus, lymphadenopathy Respiratory exam: Present: normal lung sounds bilaterally. Absent: respiratory distress, wheezes, rales, rhonchi, stridor Cardiovascular Exam: Present: irregular rhythm. Absent: systolic murmur, diastolic murmur, rubs, gallop, clicks GI/Abdominal exam: Present: soft, normal bowel sounds. Absent: distended, tende rness, guarding, rebound, rigid Extremities exam: Present: full ROM, tenderness, normal capillary refill, other (There is a large hematoma to the posterior right distal mid thigh minimal tenderness palpation). Absent: pedal edema, joint swelling, calf tenderness Back exam: Present: normal inspection Neurological exam: Present: alert, oriented X3, CN II-XII intact Psychiatric exam: Present: normal affect, normal mood Skin exam: Present: warm, dry, intact, normal color. Absent: rash Results CBC & Chem 7: 11/20/18 10:20 11/20/18 10:20 Labs: Abnormal Lab Results - Last 24 Hours (Table) 11/20/18 11/20/18 11/20/18 Range/Units 10:20 10:20 10:20 RBC 2.27 L (4.30-5.90) m/uL Hgb 7.2 L (13.0-17.5) gm/dL Hct 22.5 L (39.0-53.0) % RDW 17.6 H (11.5-15.5) % Plt Count 132 L (150-450) k/uL Neutrophils # 9.6 H (1.3-7.7) k/uL Lymphocytes # 0.4 L (1.0-4.8) k/uL Sodium 134 L (137-145) mmol/L Carbon Dioxide 20 L (22-30) mmol/L BUN 30 H (9-20) mg/dL Creatinine 1.29 H (0.66-1.25) mg/dL POC Glucose (mg/dL) (75-99) mg/dL Plasma Lactic Acid Deven 3.4 H* (0.7-2.0) mmol/L Calcium 7.7 L (8.4-10.2) mg/dL AST 16 L (17-59) U/L Total Protein 5.0 L (6.3-8.2) g/dL Albumin 2.9 L (3.5-5.0) g/dL Urine Protein (Negative) Urine Glucose (UA) (Negative) Crossmatch 11/20/18 11/20/18 11/20/18 Range/Units 10:20 11:50 15:12 RBC (4.30-5.90) m/uL Hgb (13.0-17.5) gm/dL Hct (39.0-53.0) % RDW (11.5-15.5) % Plt Count (150-450) k/uL Neutrophils # (1.3-7.7) k/uL Lymphocytes # (1.0-4.8) k/uL Sodium (137-145) mmol/L Carbon Dioxide (22-30) mmol/L BUN (9-20) mg/dL Creatinine (0.66-1.25) mg/dL POC Glucose (mg/dL) (75-99) mg/dL Plasma Lactic Acid Deven 2.3 H* (0.7-2.0) mmol/L Calcium (8.4-10.2) mg/dL AST (17-59) U/L Total Protein (6.3-8.2) g/dL Albumin (3.5-5.0) g/dL Urine Protein Trace H (Negative) Urine Glucose (UA) 3+ H (Negative) Crossmatch See Detail 11/20/18 Range/Units 17:12 RBC (4.30-5.90) m/uL Hgb (13.0-17.5) gm/dL Hct (39.0-53.0) % RDW (11.5-15.5) % Plt Count (150-450) k/uL Neutrophils # (1.3-7.7) k/uL Lymphocytes # (1.0-4.8) k/uL Sodium (137-145) mmol/L Carbon Dioxide (22-30) mmol/L BUN (9-20) mg/dL Creatinine (0.66-1.25) mg/dL POC Glucose (mg/dL) 175 H (75-99) mg/dL Plasma Lactic Acid Deven (0.7-2.0) mmol/L Calcium (8.4-10.2) mg/dL AST (17-59) U/L Total Protein (6.3-8.2) g/dL Albumin (3.5-5.0) g/dL Urine Protein (Negative) Urine Glucose (UA) (Negative) Crossmatch Thrombosis Risk Factor Assmnt - Choose All That Apply Any of the Below Risk Factors Present?: Yes Each Factor Represents 1 point: Abnormal pulmonary function (COPD), Obesity (BMI >25) Other Risk Factors: Yes Each Risk Factor Represents 2 Points: Age 61-74 years, Malignancy Each Risk Factor Represents 3 Points: Family history of DVT/PE, History of DVT/PE Other congenital or acquired thrombophilia - If yes, enter type in comment: No Thrombosis Risk Factor Assessment Total Risk Factor Score: 12 Thrombosis Risk Factor Assessment Level: High Risk Assessment and Plan Assessment: 1. Acute blood loss anemia; possibly secondary to hematoma - Patient received 1 unit of packed RBCs in ED - We will monitor CBC closely and transfuse if hemoglobin is less than 8.0 2. Fall with right lower extremity extensive hematoma - Order PT/OT 3. Acute renal injury/dehydration - IV fluid hydration with normal saline at a rate of 100 mL an hour - Monitor strict RESHMA's, daily weights, renal function and electrolytes - Avoid hypotension and nephrotoxins 4. Hypertension/Orthostatic hypotension possibly secondary to dehydration - Patient takes lisinopril 20 mg daily along with Coreg 3.125 mg by mouth twice a day - We will hold off on home antihypertensive therapy; orthostatic vital signs every shift - IV fluids normal saline at rate of 100 mL an hour 5. Hyperlipidemia; continue home statin therapy 6. Diabetes mellitus type 2; patient takes metformin at home; we will hold off while in the hospital - Monitor Accu-Cheks before meals and at bedtime with insulin sliding scale 7. COPD/asthma; continue home inhalers therapy with Spiriva and Symbicort 8. DVT prophylaxis; SCDs only due to hematoma CODE STATUS; full code Time with Patient: Greater than 30
[2018-11-20] MEDS: MELATONIN 3 MG TABLET PO PRN (20:00)
[2018-11-20] MEDS: QUEtiapine 25 MG TAB PO SCH (20:00)
[2018-11-20] MEDS: ACYCLOVIR 200 MG CAP PO SCH (20:00)
[2018-11-20] MEDS: SYMBICORT 160-4.5 MCG INHALER INHALATION SCH (20:25)
[2018-11-20 20:51] LABS: Glucose,Whole Blood 190 mg/dL (75-99)
[2018-11-21] MEDS: ACETAMINOPHEN TAB 500 MG TAB PO PRN ×2 (04:47→20:42)
[2018-11-21 05:58] LABS: Glucose,Whole Blood 160 mg/dL (75-99)
[2018-11-21 06:32] LABS: Anisocytosis Slight; HCT 20.5 % (39.0-53.0); MCHC 33.6 g/dL (31.0-37.0); MCV 98.3 fL (80.0-100.0); Macrocytosis Slight; Mean Platelet Volume 8.9; RBC 2.08 m/uL (4.30-5.90); RDW 19.4 % (11.5-15.5); WBC 6.6 k/uL (3.8-10.6)
[2018-11-21 06:54] LABS: HGB 6.9 gm/dL (13.0-17.5)
[2018-11-21 07:24] LABS: Calcium 7.7 mg/dL (8.4-10.2); Potassium 4.6 mmol/L (3.5-5.1)
[2018-11-21] MEDS: THIAMINE 100 MG TAB PO SCH (08:51)
[2018-11-21] MEDS: PANTOPRAZOLE 40 MG TABLET PO SCH (08:51)
[2018-11-21] MEDS: VIT A,C & E-LUTEIN-MINERALS 1 EACH TAB PO SCH (08:51)
[2018-11-21] MEDS: MAGNESIUM OXIDE 400 MG TAB PO SCH (08:51)
[2018-11-21] MEDS: buPROPion 100 MG TAB PO SCH (08:51)
[2018-11-21] MEDS: metFORMIN 500 MG TAB PO SCH ×2 (08:51→17:24)
[2018-11-21] MEDS: CARVEDILOL 3.125 MG TAB PO SCH ×2 (08:51→17:24)
[2018-11-21] MEDS: ATORVASTATIN 10 MG TAB PO SCH (08:51)
[2018-11-21] MEDS: FOLIC ACID 1 MG TAB PO SCH (08:51)
[2018-11-21] MEDS: ACYCLOVIR 200 MG CAP PO SCH ×2 (08:52→20:42)
[2018-11-21] MEDS ORDERED: THIAMINE MONONITRATE (VIT B1) 100 MG TABLET PO SCH (09:00)
[2018-11-21] MEDS: SYMBICORT 160-4.5 MCG INHALER INHALATION SCH ×2 (09:12→19:44)
[2018-11-21 10:24] LABS: Platelet Count 91 k/uL (150-450)
[2018-11-21 10:26] LABS: Band Neutrophils % 2 %; Lymphocytes # (M) 0.46 k/uL (1.0-4.8); Neutrophils % (M) 88 %; Nucleated Red Blood Cells 0 /100 WBC (0-0); Total Cells Counted 100
[2018-11-21 12:16] LABS: Glucose,Whole Blood 212 mg/dL (75-99)
[2018-11-21 15:11] VITALS: BMI 37.0
--- NOTE | 2018-11-21 16:40 | P.PN ---
Subjective Progress Note Date: 11/21/18 Principal diagnosis: Severe symptomatic anemia; acute blood loss Extensive hematoma right lower extremity History of multiple myeloma 66-year-old male who was brought in by EMS for generalized weakness and orthostatic hypotension. Patient was found have a hematoma on the right p osterior thigh after this he stated he missed the toilet seat sitting down earlier in the week. He was seen by his doctor yesterday was it would be fine. Today he was feeling lightheaded generally weak he does complain some pain over the thigh. He also admits he has not been drinking much fluid that he did eat breakfast this morning. No fevers chills nausea vomiting sweats no palpitations though he does have a history of atrial fibrillation. He is on blood thinners. 11/21/2018 Patient is seen and evaluated in room at bedside; denies any specific complaints Vital signs remained stable with a temperature of 97.5, pulse 111 respirations 17 and blood pressure of 108/81 Lab review shows a hemoglobin of 6.9 after transfusion of 1 unit of packed RBCs yesterday; we plan to type crossmatch and transfuse 2 units of packed RBCs; continue to monitor H&H closely Patient is on anticoagulation therapy at home; we will consult cardiology for recommendations on continuing anticoagulation in view of right lower extremity hematoma and acute blood loss anemia Objective - Vital Signs Vital signs: Vital Signs Temp 98 F 11/21/18 08:15 Pulse 108 H 11/21/18 08:15 Resp 18 11/21/18 08:15 BP 106/66 11/21/18 08:15 Pulse Ox 99 11/21/18 08:15 Intake & Output 11/20/18 11/21/18 11/21/18 18:59 06:59 18:59 Intake Total 670 240 Output Total 725 Balance 670 -725 240 Weight 140.16 kg 117.3 kg Intake: Oral 360 240 Blood Product 310 Rc As-1 Unit 310 [id number] Output: Urine 725 Other: # Voids 1 # Bowel Movements 1 - Exam PHYSICAL EXAMINATION: VITAL SIGNS: Temperature [], pulse of [], respiratory rate of [], blood pressure is []. Saturating at []% on []. GENERAL: The patient is alert and oriented x3, not in any acute distress. Well developed, well nourished. HEENT: Pupils are round and equally reacting to light. EOMI. No scleral icterus. No conjunctival pallor. Normocephalic, atraumatic. No pharyngeal erythema. No thyromegaly. CARDIOVASCULAR: S1 and S2 present. No murmurs, rubs, or gallops. PULMONARY: Chest is clear to auscultation, no wheezing or crackles. ABDOMEN: Soft, nontender, nondistended, normoactive bowel sounds. No palpable organomegaly. MUSCULOSKELETAL: No joint swelling or deformity. EXTREMITIES: No cyanosis, clubbing, or pedal edema. NEUROLOGICAL: Gross neurological examination did not reveal any focal deficits. SKIN: No rashes. - Labs CBC & Chem 7: 11/21/18 05:50 11/21/18 05:50 Labs: Abnormal Lab Results - Last 24 Hours (Table) 11/20/18 11/20/18 11/20/18 Range/Units 10:20 11:50 15:12 RBC (4.30-5.90) m/uL Hgb (13.0-17.5) gm/dL Hct (39.0-53.0) % RDW (11.5-15.5) % Plt Count (150-450) k/uL Lymphocytes # (Manual) (1.0-4.8) k/uL Sodium (137-145) mmol/L Chloride (98-107) mmol/L BUN (9-20) mg/dL Glucose (74-99) mg/dL POC Glucose (mg/dL) (75-99) mg/dL Plasma Lactic Acid Deven 2.3 H* (0.7-2.0) mmol/L Calcium (8.4-10.2) mg/dL Urine Protein Trace H (Negative) Urine Glucose (UA) 3+ H (Negative) Crossmatch See Detail 11/20/18 11/20/18 11/21/18 Range/Units 17:12 20:49 05:50 RBC 2.08 L (4.30-5.90) m/uL Hgb 6.9 L* (13.0-17.5) gm/dL Hct 20.5 L (39.0-53.0) % RDW 19.4 H (11.5-15.5) % Plt Count 91 L (150-450) k/uL Lymphocytes # (Manual) 0.46 L (1.0-4.8) k/uL Sodium (137-145) mmol/L Chloride (98-107) mmol/L BUN (9-20) mg/dL Glucose (74-99) mg/dL POC Glucose (mg/dL) 175 H 190 H (75-99) mg/dL Plasma Lactic Acid Deven (0.7-2.0) mmol/L Calcium (8.4-10.2) mg/dL Urine Protein (Negative) Urine Glucose (UA) (Negative) Crossmatch 11/21/18 11/21/18 Range/Units 05:50 05:55 RBC (4.30-5.90) m/uL Hgb (13.0-17.5) gm/dL Hct (39.0-53.0) % RDW (11.5-15.5) % Plt Count (150-450) k/uL Lymphocytes # (Manual) (1.0-4.8) k/uL Sodium 136 L (137-145) mmol/L Chloride 108 H (98-107) mmol/L BUN 26 H (9-20) mg/dL Glucose 129 H (74-99) mg/dL POC Glucose (mg/dL) 160 H (75-99) mg/dL Plasma Lactic Acid Deven (0.7-2.0) mmol/L Calcium 7.7 L (8.4-10.2) mg/dL Urine Protein (Negative) Urine Glucose (UA) (Negative) Crossmatch Assessment and Plan Assessment: 1. Acute blood loss anemia; possibly secondary to hematoma - Patient received 1 unit of packed RBCs in ED - We will monitor CBC closely and transfuse if hemoglobin is less than 8.0 2. Fall with right lower extremity extensive hematoma - Order PT/OT 3. Acute renal injury/dehydration - IV fluid hydration with normal saline at a rate of 100 mL an hour - Monitor strict RESHMA's, daily weights, renal function and electrolytes - Avoid hypotension and nephrotoxins 4. Hypertension/Orthostatic hypotension possibly secondary to dehydration - Patient takes lisinopril 20 mg daily along with Coreg 3.125 mg by mouth twice a day - We will hold off on home antihypertensive therapy; orthostatic vital signs every shift - IV fluids normal saline at rate of 100 mL an hour 5. Hyperlipidemia; continue home statin therapy 6. Diabetes mellitus type 2; patient takes metformin at home; we will hold off while in the hospital - Monitor Accu-Cheks before meals and at bedtime with insulin sliding scale 7. COPD/asthma; continue home inhalers therapy with Spiriva and Symbicort 8. DVT prophylaxis; SCDs only due to hematoma CODE STATUS; full code Time with Patient: Greater than 30
[2018-11-21 16:59] LABS: Glucose,Whole Blood 181 mg/dL (75-99)
[2018-11-21] MEDS: MELATONIN 3 MG TABLET PO PRN (20:42)
[2018-11-21] MEDS: QUEtiapine 25 MG TAB PO SCH (20:42)
[2018-11-21 21:03] LABS: Glucose,Whole Blood 188 mg/dL (75-99)
[2018-11-22] MEDS: ACETAMINOPHEN TAB 500 MG TAB PO PRN (02:06)
[2018-11-22 06:27] LABS: Glucose,Whole Blood 143 mg/dL (75-99)
[2018-11-22] MEDS: CARVEDILOL 3.125 MG TAB PO SCH (06:46)
[2018-11-22] MEDS: metFORMIN 500 MG TAB PO SCH ×2 (06:46→17:14)
[2018-11-22] MEDS: PANTOPRAZOLE 40 MG TABLET PO SCH (06:46)
[2018-11-22 07:14] LABS: African American GFR (CKD) >90 (>60 ml/min/1.73 sqM); Anion Gap 8 mmol/L; Blood Urea Nitrogen 29 mg/dL (9-20); Calcium 8.2 mg/dL (8.4-10.2); Carbon Dioxide 20 mmol/L (22-30); Chloride 109 mmol/L (98-107); Glucose 125 mg/dL (74-99); Potassium 4.4 mmol/L (3.5-5.1); Sodium 137 mmol/L (137-145)
[2018-11-22 07:23] LABS: Anisocytosis Moderate; Basophils % (A) 0 %; Eosinophils # (A) 0.1 k/uL (0-0.7); Eosinophils % (A) 1 %; HCT 24.1 % (39.0-53.0); Lymphocytes # (A) 0.4 k/uL (1.0-4.8); Lymphocytes % (A) 6 %; MCH 32.4 pg (25.0-35.0); MCHC 33.1 g/dL (31.0-37.0); Macrocytosis Slight; Mean Platelet Volume 9.9; Monocytes # (A) 0.4 k/uL (0-1.0); Monocytes % (A) 6 %; Neutrophils # (A) 5.3 k/uL (1.3-7.7); Neutrophils % (A) 86 %; RBC 2.46 m/uL (4.30-5.90); RDW 20.1 % (11.5-15.5); WBC 6.2 k/uL (3.8-10.6)
[2018-11-22] MEDS: THIAMINE 100 MG TAB PO SCH (07:35)
[2018-11-22] MEDS: ATORVASTATIN 10 MG TAB PO SCH (07:35)
[2018-11-22] MEDS: MAGNESIUM OXIDE 400 MG TAB PO SCH (07:35)
[2018-11-22] MEDS: FOLIC ACID 1 MG TAB PO SCH (07:35)
[2018-11-22] MEDS: VIT A,C & E-LUTEIN-MINERALS 1 EACH TAB PO SCH (07:36)
[2018-11-22] MEDS: ACYCLOVIR 200 MG CAP PO SCH ×2 (07:36→22:22)
[2018-11-22] MEDS: buPROPion 100 MG TAB PO SCH (07:36)
[2018-11-22 08:00] LABS: Platelet Count 89 k/uL (150-450)
[2018-11-22] MEDS: SYMBICORT 160-4.5 MCG INHALER INHALATION SCH ×2 (08:18→20:39)
[2018-11-22] MEDS ORDERED: DEXAMETHASONE 4 MG TAB PO SCH (09:00)
--- NOTE | 2018-11-22 09:23 | P.CRDCN ---
History of Present Illness Consult date: 11/22/18 Consult reason: other (Atrial fibrillation/anticoagulation, extensive hematoma and anemia. Recommendations for anticoagulation.) History of present illness: This is a 67-year-old male patient of Dr. Crain with past medical history of chronic atrial fibrillation on anticoagulation, COPD, diabetes mellitus type 2, hypertension, normal pressure hydrocephalus status post shunt, recent diagnosis of stage III multiple myeloma on chemotherapy for the past 3-4 weeks on Mondays and at [facility]. Patient does not recall his chemotherapy. Patient also has obstructive sleep apnea on BiPAP. Patient gives history that 5-6 days ago he was attempting to get on the toilet and missed having a fall and sustained a large hematoma to the posterior right thigh. He complains of increasing weakness. He denies chest pain but he has had shortness of breath which is improved with Symbicort which was recently added. Patient came into [facility] emergency center for evaluation. EKG was atrial fibrillation with left axis deviation. Ultrasound of the right lower extremity was negative for DVT but found of very large 23 cm fluid collection in the right thigh. Initial hemoglobin was 7.25 x 6.9 and today at 8.0. Patient is status post transfusion of 3 units of packed RBCs. Noted his platelet count is at 89. Currently BUN 29 creatinine 0.91. He presented with lactic acidosis. Troponin 0.019. Patient does deny any chest pain. Patient was admitted to the cardiac stepdown unit and lisinopril has been on hold. Orthostatic vital signs have been stable. Patient is a poor historian unable to remember his home medications. Review of Systems Constitutional: Reports fatigue, Reports weakness, Denies anorexia, Denies poor appetite Ears, nose, mouth and throat: Denies dental pain, Denies nasal congestion, Denies nasal discharge, Denies vertigo Cardiovascular: Reports decreased exercise tolerance, Reports dyspnea on exertion, Reports irregular heart beat, Reports leg edema, Reports shortness of breath, Denies syncope Respiratory: Reports dyspnea, Reports sleep apnea, Denies cough, Denies cough with sputum, Denies excessive sputum, Denies hemoptysis, Denies home oxygen Gastrointestinal: Denies abdominal pain, Denies loss of appetite, Denies nausea, Denies vomiting Genitourinary: Denies dysuria, Denies urinary retention Musculoskeletal: Reports gait dysfunction, Reports muscle weakness, Denies frequent falls Integumentary: Reports color changes, Reports darkening of skin, Denies pruritus, Denies rash Neurological: Reports balance difficulties, Reports gait dysfunction, Denies aphasia, Denies change in speech, Denies double vision, Denies seizures Psychiatric: Denies anxiety, Denies depression Past Medical History Past Medical History: Atrial Fibrillation, Asthma, COPD, Diabetes Mellitus, Hypertension, Pneumonia Additional Past Medical History / Comment(s): Pt recently seen in [facility] ER on 09/25/18 for low hgb, R lower back hematoma, auditory and visual hallucinations, encephalopathy and was transferred to [facility]. At [facility] pt was diagnosed with multiple myeloma stage III with bone lesions (bilateral hips/femurs and spine), cognitive deficit thought d/t cancer. Pt had aspiration pneumonia while there and was intubated/vented. He was septic. He also had falls. Other diagnosis while at [facility] include acute renal failure, anemia, bilateral lower extremity DVTs, spleenomegaly. He was started on chemotherapy. 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 Past Anesthesia/Blood Transfusion Reactions: No Reported Reaction Additional Past Anesthesia/Blood Transfusion Reaction / Comment(s): Pt has received blood without reaction. Date of Last Stent Placement:: 2008 in [facility] Smoking Status: Former smoker - Past Family History Father Additional Family Medical History / Comment(s): Father had NPH with a [employer] shunt. He lived to be 84 yrs old. Mother Family Medical History: Deep Vein Thrombosis (DVT) Additional Family Medical History / Comment(s): Mother at the age of 62- suspect d/t DVTs. Medications and Allergies Home Medications Medication Instructions Recorded Confirmed Type Lisinopril [Prinivil] 20 mg PO DAILY 09/25/18 11/20/18 History Lovastatin [Mevacor] 20 mg PO DAILY 09/25/18 11/20/18 History Tiotropium Flint [Spiriva] 1 cap INHALATION RT-DAILY PRN 09/25/18 11/20/18 History Vit C/E/Zn/Coppr/Lutein/Zeaxan 1 cap PO DAILY 09/25/18 11/20/18 History [Preservision Areds 2 Softgel] metFORMIN HCL [Glucophage] 1,000 mg PO BID 09/25/18 11/20/18 History Acetaminophen [Tylenol] 500 mg PO Q6H PRN 11/20/18 11/20/18 History Acyclovir [Zovirax] 400 mg PO BID 11/20/18 11/20/18 History Budesonide-Formot 160-4.5 Mcg 2 puff INHALATION RT-BID 11/20/18 11/20/18 History [Symbicort 160-4.5 Mcg Inhaler] Carvedilol [Coreg] 3.125 mg PO BID 11/20/18 11/20/18 History Dexamethasone [Decadron] 4 mg PO VALVERDE 11/20/18 11/20/18 History Folic Acid 1 mg PO DAILY 11/20/18 11/20/18 History Lovastatin [Mevacor] 20 mg PO DAILY 11/20/18 11/20/18 History Magnesium Oxide [Mag-Ox] 400 mg PO DAILY 11/20/18 11/20/18 History Melatonin 3 mg PO HS PRN 11/20/18 11/20/18 History Omeprazole [PriLOSEC] 20 mg PO DAILY 11/20/18 11/20/18 History Prochlorperazine [Compazine] 10 mg PO DAILY PRN 11/20/18 11/20/18 History QUEtiapine FUMARATE [SEROquel] 25 mg PO HS 11/20/18 11/20/18 History Sulfamethox-Tmp 800-160Mg [Bactrim 1 tab PO MOWEFR 11/20/18 11/20/18 History DS 800-160 mg] Thiamine Mononitrate (Vit B1) 100 mg PO DAILY 11/20/18 11/20/18 History [Vitamin B-1] buPROPion [Wellbutrin] 300 mg PO DAILY 11/20/18 11/20/18 History Allergies Allergy/AdvReac Type Severity Reaction Status Date / Time No Known Allergies Allergy Verified 11/20/18 10:35 Physical Exam Vitals: Vital Signs Temp Pulse Pulse Resp BP BP BP 11/22/18 07:49 98 F 116 H 18 107/71 11/22/18 04:00 97.7 F 115 H 16 105/70 11/22/18 00:34 98.2 F 101 H 18 11/21/18 20:00 97.9 F 95 18 103/69 11/21/18 19:46 11/21/18 17:06 98 F 100 16 116/76 11/21/18 16:10 98 F 100 17 112/70 108/68 11/21/18 15:20 97.9 F 110 H 18 117/82 11/21/18 15:08 97.5 F L 111 H 17 108/81 11/21/18 14:50 98.1 F 94 113/67 11/21/18 14:40 97.7 F 109 H 18 114/69 11/21/18 14:16 104 H 18 95/55 11/21/18 12:25 98 F 120 H 17 115/84 11/21/18 12:00 98.1 F 125 H 18 11/21/18 11:55 98.1 F 125 H 17 114/73 11/21/18 11:45 98.1 F 142 H 18 112/86 BP Pulse Ox 11/22/18 07:49 97 11/22/18 04:00 100 11/22/18 00:34 121/66 95 11/21/18 20:00 112/66 95 11/21/18 19:46 97 11/21/18 17:06 11/21/18 16:10 116/76 98 11/21/18 15:20 11/21/18 15:08 11/21/18 14:50 11/21/18 14:40 11/21/18 14:16 11/21/18 12:25 11/21/18 12:00 112/86 98 11/21/18 11:55 11/21/18 11:45 Intake and Output 11/21/18 11/22/18 11/22/18 22:59 06:59 14:59 Intake Total 1650 240 Output Total 401 Balance 1249 240 Intake: IV 620 prbc 620 Oral 720 240 Blood Product 310 Rc As-1 Unit 310 [id number] Output: Urine 401 Other: # Voids 3 Weight 117.3 kg 118 kg Gen: This is a obese 67-year-old male. He is sitting in a recliner and appears to be comfortable and in no acute distress. HEENT: Head is atraumatic, normocephalic. Pupils equal, round. Sclerae is anicteric. NECK: Supple. No JVD. No lymphadenopathy. No thyromegaly. LUNGS: Clear to auscultation. No wheezes or rhonchi. No intercostal retractions. HEART: Irregular rate and rhythm. Systolic murmur. ABDOMEN: Soft. Bowel sounds are present. No masses. No tenderness. EXTREMITIES: 1+ bilateral pedal edema. No calf tenderness. Dorsalis pedis +1 bilaterally. Patient has large hematoma to the posterior right thigh. NEUROLOGICAL: Patient is awake, alert and oriented x3. Cranial nerves 2 through 12 are grossly intact. Results 11/22/18 06:04 11/22/18 06:04 CBC 11/21/18 11/22/18 Range/Units 05:50 06:04 WBC 6.2 (3.8-10.6) k/uL RBC 2.46 L (4.30-5.90) m/uL Hgb 8.0 L (13.0-17.5) gm/dL Hct 24.1 L (39.0-53.0) % Plt Count 91 L 89 L (150-450) k/uL Comprehensive Metabolic Panel 11/22/18 Range/Units 06:04 Sodium 137 (137-145) mmol/L Potassium 4.4 (3.5-5.1) mmol/L Chloride 109 H (98-107) mmol/L Carbon Dioxide 20 L (22-30) mmol/L BUN 29 H (9-20) mg/dL Creatinine 0.91 (0.66-1.25) mg/dL Glucose 125 H (74-99) mg/dL Calcium 8.2 L (8.4-10.2) mg/dL Current Medications Generic Name Dose Route Start Last Admin Trade Name Freq PRN Reason Stop Dose Admin Acetaminophen 500 mg 11/20/18 13:33 11/22/18 02:06 Tylenol Tab PO 500 mg Q6H PRN Administration PAIN/FEVER Acyclovir 400 mg 11/20/18 21:00 11/22/18 07:36 Zovirax PO 400 mg BID EUGENIA Administration Atorvastatin Calcium 10 mg 11/21/18 09:00 11/22/18 07:35 Lipitor PO 10 mg DAILY EUGENIA Administration Budesonide/Formoterol Fumarate 2 puff 11/20/18 20:00 11/22/18 08:18 Symbicort 160-4.5 Mcg Inhaler INHALATION 2 puff RT-BID EUGENIA Administration Bupropion HCl 300 mg 11/21/18 09:00 11/22/18 07:36 Wellbutrin PO 300 mg DAILY EUGENIA Administration Carvedilol 3.125 mg 11/20/18 17:30 11/22/18 06:46 Coreg PO 3.125 mg BID-W/MEALS EUGENIA Administration Dexamethasone 4 mg 11/22/18 09:00 11/22/18 07:36 Hexadrol PO 4 mg VALVERDE EUGENIA Administration Folic Acid 1 mg 11/21/18 09:00 11/22/18 07:35 Folic Acid PO 1 mg DAILY EUGENIA Administration Ipratropium Flint 0.5 mg 11/20/18 13:33 Atrovent Nebulized INHALATION RT-QID PRN Shortness Of Breath Magnesium Oxide 400 mg 11/21/18 09:00 11/22/18 07:35 Mag-Ox PO 400 mg DAILY EUGENIA Administration Melatonin 3 mg 11/20/18 13:33 11/21/18 20:42 Melatonin PO 3 mg HS PRN Administration SLEEP Metformin HCl 1,000 mg 11/20/18 17:30 11/22/18 06:46 Glucophage PO 1,000 mg AC-BID EUGENIA Administration Multivitamins/Minerals 1 each 11/21/18 09:00 11/22/18 07:36 Ivite PO 1 each DAILY EUGENIA Administration Naloxone HCl 0.2 mg 11/20/18 13:31 Narcan IV Q2M PRN Opioid Reversal Pantoprazole Sodium 40 mg 11/21/18 07:30 11/22/18 06:46 Protonix PO 40 mg AC-BRKFST EUGENIA Administration Prochlorperazine Maleate 10 mg 11/20/18 13:33 Compazine PO DAILY PRN Nausea And Vomiting Quetiapine Fumarate 25 mg 11/20/18 21:00 11/21/18 20:42 Seroquel PO 25 mg HS EUGENIA Administration Thiamine HCl 100 mg 11/21/18 09:00 11/22/18 07:35 Vitamin B-1 PO 100 mg DAILY EUGENIA Administration Trimethoprim/Sulfamethoxazole 1 each 11/20/18 14:00 11/20/18 18:05 Bactrim Ds PO Not Given MOWEFR EUGENIA Intake and Output 11/21/18 11/22/18 11/22/18 22:59 06:59 14:59 Intake Total 1650 240 Output Total 401 Balance 1249 240 Intake: IV 620 prbc 620 Oral 720 240 Blood Product 310 Rc As-1 Unit 310 [id number] Output: Urine 401 Other: # Voids 3 Weight 117.3 kg 118 kg 11/22/18 06:04 11/22/18 06:04 Assessment and Plan Plan: 1. Paroxysmal atrial fibrillation, mild RVR. Anticoagulation on hold due to large hematoma. Obtain 2-D echocardiogram and Doppler study to assess cardiac structures and functions. Office records will be reviewed and determine current anticoagulation as patient is unable to provide. Coreg will be discontinued and patient started on metoprolol 12.5 mg twice daily for better rate control. 2. Large hematoma right thigh with acute blood loss anemia status post transfusion. 3. Fall with gait and balance disturbance and history of normal pressure hydrocephalus. 4. Acute kidney injury and dehydration. 5. Hypertension currently episodes of hypotension. 6. Hyperlipidemia. 7. Diabetes mellitus type 2. 8. COPD. 9. Obstructive sleep apnea on BiPAP. 10. Recent diagnosis of multiple myeloma on chemotherapy at [facility]. 11. Bicytopenia with thrombocytopenia and anemia most likely related to multiple myeloma and chemotherapy. Nurse practitioner note has been reviewed, I agree with documented findings and plan of care. Patient was seen and examined.
[2018-11-22 11:57] LABS: Glucose,Whole Blood 140 mg/dL (75-99)
--- NOTE | 2018-11-22 14:39 | P.PN ---
Subjective Progress Note Date: 11/22/18 Principal diagnosis: Severe symptomatic anemia; acute blood loss Extensive hematoma right lower extremity History of multiple myeloma 66-year-old male who was brought in by EMS for generalized weakness and orthostatic hypotension. Patient was found have a hematoma on the right p osterior thigh after this he stated he missed the toilet seat sitting down earlier in the week. He was seen by his doctor yesterday was it would be fine. Today he was feeling lightheaded generally weak he does complain some pain over the thigh. He also admits he has not been drinking much fluid that he did eat breakfast this morning. No fevers chills nausea vomiting sweats no palpitations though he does have a history of atrial fibrillation. He is on blood thinners. 11/21/2018 Patient is seen and evaluated in room at bedside; denies any specific complaints Vital signs remained stable with a temperature of 97.5, pulse 111 respirations 17 and blood pressure of 108/81 Lab review shows a hemoglobin of 6.9 after transfusion of 1 unit of packed RBCs yesterday; we plan to type crossmatch and transfuse 2 units of packed RBCs; continue to monitor H&H closely Patient is on anticoagulation therapy at home; we will consult cardiology for recommendations on continuing anticoagulation in view of right lower extremity hematoma and acute blood loss anemia 11/22/2018 Patient is seen and evaluated sitting up in the bedside chair; no specific complaints at this time; received 2 units of packed RBCs yesterday; patient is a total of 3 units of packed RBCs since admission Vital signs remained stable with a temperature of 98, pulse 60, respiration 18 and blood pressure 107/71 Lab review shows a white blood count of 6.2, hemoglobin 8.0, sodium 137, potassium 4.4 and BUN 2019 with creatinine of 0.9 Cardiology is following patient with following recommendations; Paroxysmal atrial fibrillation, mild RVR. Anticoagulation on hold due to large hematoma. Obtain 2-D echocardiogram and Doppler study to assess cardiac structures and functions. Office records will be reviewed and determine current anticoagulation as patient is unable to provide. Coreg will be discontinued and patient started on metoprolol 12.5 mg twice daily for better rate control. Objective - Vital Signs Vital signs: Vital Signs Temp 98 F 11/22/18 07:49 Pulse 116 H 11/22/18 07:49 Resp 18 11/22/18 07:49 BP 107/71 11/22/18 07:49 Pulse Ox 97 11/22/18 07:49 Intake & Output 11/21/18 11/22/18 11/22/18 18:59 06:59 18:59 Intake Total 1950 480 240 Output Total 1 400 450 Balance 194 80 -210 Weight 117.3 kg 118 kg Intake: IV 620 prbc 620 Oral 710 480 240 Blood Product 620 Rc As-1 Unit 310 [id number] Rc As-1 Unit 310 [id number] Output: Urine 1 400 450 Other: # Voids 3 # Bowel Movements 1 - Exam PHYSICAL EXAMINATION: VITAL SIGNS: Temperature [], pulse of [], respiratory rate of [], blood pressure is []. Saturating at []% on []. GENERAL: The patient is alert and oriented x3, not in any acute distress. Well developed, well nourished. HEENT: Pupils are round and equally reacting to light. EOMI. No scleral icterus. No conjunctival pallor. Normocephalic, atraumatic. No pharyngeal erythema. No thyromegaly. CARDIOVASCULAR: S1 and S2 present. No murmurs, rubs, or gallops. PULMONARY: Chest is clear to auscultation, no wheezing or crackles. ABDOMEN: Soft, nontender, nondistended, normoactive bowel sounds. No palpable organomegaly. MUSCULOSKELETAL: No joint swelling or deformity. EXTREMITIES: No cyanosis, clubbing, or pedal edema. NEUROLOGICAL: Gross neurological examination did not reveal any focal deficits. SKIN: No rashes. - Labs CBC & Chem 7: 11/22/18 06:04 11/22/18 06:04 Labs: Abnormal Lab Results - Last 24 Hours (Table) 11/20/18 11/21/18 11/21/18 Range/Units 10:20 11:55 16:56 RBC (4.30-5.90) m/uL Hgb (13.0-17.5) gm/dL Hct (39.0-53.0) % RDW (11.5-15.5) % Plt Count (150-450) k/uL Lymphocytes # (1.0-4.8) k/uL Chloride (98-107) mmol/L Carbon Dioxide (22-30) mmol/L BUN (9-20) mg/dL Glucose (74-99) mg/dL POC Glucose (mg/dL) 212 H 181 H (75-99) mg/dL Calcium (8.4-10.2) mg/dL Crossmatch See Detail 11/21/18 11/22/18 11/22/18 Range/Units 21:02 06:04 06:04 RBC 2.46 L (4.30-5.90) m/uL Hgb 8.0 L (13.0-17.5) gm/dL Hct 24.1 L (39.0-53.0) % RDW 20.1 H (11.5-15.5) % Plt Count 89 L (150-450) k/uL Lymphocytes # 0.4 L (1.0-4.8) k/uL Chloride 109 H (98-107) mmol/L Carbon Dioxide 20 L (22-30) mmol/L BUN 29 H (9-20) mg/dL Glucose 125 H (74-99) mg/dL POC Glucose (mg/dL) 188 H (75-99) mg/dL Calcium 8.2 L (8.4-10.2) mg/dL Crossmatch 11/22/18 Range/Units 06:14 RBC (4.30-5.90) m/uL Hgb (13.0-17.5) gm/dL Hct (39.0-53.0) % RDW (11.5-15.5) % Plt Count (150-450) k/uL Lymphocytes # (1.0-4.8) k/uL Chloride (98-107) mmol/L Carbon Dioxide (22-30) mmol/L BUN (9-20) mg/dL Glucose (74-99) mg/dL POC Glucose (mg/dL) 143 H (75-99) mg/dL Calcium (8.4-10.2) mg/dL Crossmatch Assessment and Plan Assessment: 1. Acute blood loss anemia; possibly secondary to hematoma - Patient received 1 unit of packed RBCs in ED - We will monitor CBC closely and transfuse if hemoglobin is less than 8.0 2. Fall with right lower extremity extensive hematoma - Order PT/OT 3. Acute renal injury/dehydration - IV fluid hydration with normal saline at a rate of 100 mL an hour - Monitor strict RESHMA's, daily weights, renal function and electrolytes - Avoid hypotension and nephrotoxins 4. Hypertension/Orthostatic hypotension possibly secondary to dehydration - Patient takes lisinopril 20 mg daily along with Coreg 3.125 mg by mouth twice a day - We will hold off on home antihypertensive therapy; orthostatic vital signs every shift - IV fluids normal saline at rate of 100 mL an hour 5. Hyperlipidemia; continue home statin therapy 6. Diabetes mellitus type 2; patient takes metformin at home; we will hold off while in the hospital - Monitor Accu-Cheks before meals and at bedtime with insulin sliding scale 7. COPD/asthma; continue home inhalers therapy with Spiriva and Symbicort 8. DVT prophylaxis; SCDs only due to hematoma CODE STATUS; full code Time with Patient: Greater than 30
[2018-11-22 16:27] LABS: Glucose,Whole Blood 210 mg/dL (75-99)
[2018-11-22 20:36] LABS: Glucose,Whole Blood 191 mg/dL (75-99)
[2018-11-22] MEDS: QUEtiapine 25 MG TAB PO SCH (22:22)
[2018-11-22] MEDS: METOPROLOL TARTRATE 12.5 MG TAB PO SCH (22:22)
[2018-11-22] MEDS: MELATONIN 3 MG TABLET PO PRN (22:22)
[2018-11-23 06:30] LABS: Glucose,Whole Blood 166 mg/dL (75-99)
[2018-11-23 06:54] LABS: Anisocytosis Moderate; Basophils % (A) 0 %; Eosinophils # (A) 0.1 k/uL (0-0.7); Eosinophils % (A) 1 %; HCT 23.5 % (39.0-53.0); HGB 7.9 gm/dL (13.0-17.5); Lymphocytes # (A) 0.4 k/uL (1.0-4.8); Lymphocytes % (A) 7 %; MCH 33.1 pg (25.0-35.0); MCHC 33.7 g/dL (31.0-37.0); MCV 98.2 fL (80.0-100.0); Macrocytosis Slight; Mean Platelet Volume 9.4; Monocytes # (A) 0.3 k/uL (0-1.0); Monocytes % (A) 4 %; Neutrophils % (A) 85 %; RBC 2.39 m/uL (4.30-5.90); RDW 20.7 % (11.5-15.5); WBC 5.9 k/uL (3.8-10.6)
[2018-11-23] MEDS: metFORMIN 500 MG TAB PO SCH ×2 (07:07→17:19)
[2018-11-23] MEDS: PANTOPRAZOLE 40 MG TABLET PO SCH (07:07)
[2018-11-23 07:20] LABS: African American GFR (CKD) >90 (>60 ml/min/1.73 sqM); Anion Gap 9 mmol/L; Blood Urea Nitrogen 26 mg/dL (9-20); Calcium 8.6 mg/dL (8.4-10.2); Carbon Dioxide 21 mmol/L (22-30); Chloride 108 mmol/L (98-107); Glucose 138 mg/dL (74-99); Potassium 4.5 mmol/L (3.5-5.1); Sodium 138 mmol/L (137-145)
[2018-11-23 07:23] LABS: Platelet Count 92 k/uL (150-450)
[2018-11-23] MEDS: ACYCLOVIR 200 MG CAP PO SCH ×2 (08:45→21:36)
[2018-11-23] MEDS: buPROPion 100 MG TAB PO SCH (08:45)
[2018-11-23] MEDS: THIAMINE 100 MG TAB PO SCH (08:46)
[2018-11-23] MEDS: METOPROLOL TARTRATE 12.5 MG TAB PO SCH ×2 (08:46→21:37)
[2018-11-23] MEDS: MAGNESIUM OXIDE 400 MG TAB PO SCH (08:46)
[2018-11-23] MEDS: FOLIC ACID 1 MG TAB PO SCH (08:46)
[2018-11-23] MEDS: VIT A,C & E-LUTEIN-MINERALS 1 EACH TAB PO SCH (08:46)
[2018-11-23] MEDS: ATORVASTATIN 10 MG TAB PO SCH (08:46)
[2018-11-23] MEDS: SYMBICORT 160-4.5 MCG INHALER INHALATION SCH ×2 (08:59→21:00)
--- NOTE | 2018-11-23 11:45 | ECHOF ---
Referral Reason:Chest pain and cardiomyopathy MEASUREMENTS -------- HEIGHT: 180.3 cm WEIGHT: 117.9 kg BP: 128/79 RVIDd: 3.3 cm (< 3.3) IVSd: 1.3 cm (0.6 - 1.1) LVIDd: 4.0 cm (3.9 - 5.3) LVPWd: 1.6 cm (0.6 - 1.1) IVSs: 1.9 cm LVIDs: 3.1 cm LVPWs: 1.8 cm LAESV Index (A-L): 47.65 ml/m Ao Diam: 3.0 cm (2.0 - 3.7) AV Cusp: 1.5 cm (1.5 - 2.6) LA Diam: 3.9 cm (2.7 - 3.8) MV EXCURSION: 17.007 mm (> 18.000) MV EF SLOPE: 92 mm/s (70 - 150) EPSS: 1.0 cm AV maxP.30 mmHg AV meanP.36 mmHg RAP: 5.00 mmHg RVSP: 30.01 mmHg FINDINGS -------- Atrial fibrillation. This was a technically difficult study with suboptimal views. The left ventricular size is normal. There is moderate concentric left ventricular hypertrophy. O verall left ventricular systolic function is normal with, an EF between 55 - 60 %. The right ventricle is mildly enlarged. LA is severely dilated >40 ml/m2 The right atrial size is normal. Lumason used There is moderate aortic valve sclerosis. There is mild aortic stenosis present. Peak/mean gradie nt across the Aortic Valve is 13.30mmHg / 8.36mmHg. Moderate mitral annular calcification present. Mild mitral regurgitation is present. Mild tricuspid regurgitation present. There is no evidence of pulmonary hypertension. The right v entricular systolic pressure, as measured by Doppler, is 30.01mmHg. There is no pulmonic regurgitation present. The aortic root size is normal. IVC Not well visulized. There is no pericardial effusion. CONCLUSIONS -------- 1. Atrial fibrillation. 2. This was a technically difficult study with suboptimal views. 3. The left ventricular size is normal. 4. There is moderate concentric left ventricular hypertrophy. 5. Overall left ventricular systolic function is normal with, an EF between 55 - 60 %. 6. The right ventricle is mildly enlarged. 7. LA is severely dilated >40 ml/m2 8. Lumason used 9. There is moderate aortic valve sclerosis. 10. There is mild aortic stenosis present. 11. Peak/mean gradient across the Aortic Valve is 13.30mmHg / 8.36mmHg. 12. Moderate mitral annular calcification present. 13. Mild mitral regurgitation is present. 14. Mild tricuspid regurgitation present. 15. There is no evidence of pulmonary hypertension. 16. There is no pulmonic regurgitation present. 17. The aortic root size is normal. 18. IVC Not well visulized. 19. There is no pericardial effusion. MIXING TANK OPERATOR: Gina Norman RDCS
[2018-11-23 12:05] LABS: Glucose,Whole Blood 114 mg/dL (75-99)
--- NOTE | 2018-11-23 15:10 | P.PN ---
Subjective Progress Note Date: 11/23/18 This is a 67-year-old male patient of Dr. Crain with past medical history of chronic atrial fibrillation on anticoagulation, COPD, diabetes mellitus type 2, hypertension, normal pressure hydrocephalus status post shunt, recent diagnosis of stage III multiple myeloma on chemotherapy for the past 3-4 weeks on Mondays and at [facility]. Patient does not recall his chemotherapy. Patient also has obstructive sleep apnea on BiPAP. Patient gives history that 5-6 days ago he was attempting to get on the toilet and missed having a fall and sustained a large hematoma to the posterior right thigh. He complains of increasing weakness. He denies chest pain but he has had shortness of breath which is improved with Symbicort which was recently added. Patient came into [facility] emergency center for evaluation. EKG was atrial fibrillation with left axis deviation. Ultrasound of the right lower extremity was negative for DVT but found of very large 23 cm fluid collection in the right thigh. Initial hemoglobin was 7.25 x 6.9 and today at 8.0. Patient is status post transfusion of 3 units of packed RBCs. Noted his platelet count is at 89. Currently BUN 29 creatinine 0.91. He presented with lactic acidosis. Troponin 0.019. Patient does deny any chest pain. Patient was admitted to the cardiac stepdown unit and lisinopril has been on hold. Orthostatic vital signs have been stable. Patient is a poor historian unable to remember his home medications. 11/23/2018 Patient was seen and examined this morning, sitting up in the chair at bedside, overall feeling well. Blood pressure this morning in the low 90s systolic, patient is asymptomatic with that. White blood cell count 5.9, hemoglobin 7.9, platelet count 92. Sodium 138, potassium 4.5, BUN 26 and creatinine 0.9. Objective - Vital Signs Vital signs: Vital Signs Temp 97.9 F 11/23/18 12:00 Pulse 87 11/23/18 12:00 Resp 19 11/23/18 12:00 BP 89/64 11/23/18 12:00 Pulse Ox 100 11/23/18 12:00 Intake & Output 11/22/18 11/23/18 11/23/18 18:59 06:59 18:59 Intake Total 702 600 Output Total 1150 300 Balance -448 300 Weight 113.9 kg Intake: Oral 702 600 Output: Urine 1150 300 Other: # Voids 1 1 2 - Exam Gen: This is a obese 67-year-old male. He is sitting in a recliner and appears to be comfortable and in no acute distress. HEENT: Head is atraumatic, normocephalic. Pupils equal, round. Sclerae is anic teric. NECK: Supple. No JVD. No lymphadenopathy. No thyromegaly. LUNGS: Clear to auscultation. No wheezes or rhonchi. No intercostal retractions. HEART: Irregular rate and rhythm. Systolic murmur. ABDOMEN: Soft. Bowel sounds are present. No masses. No tenderness. EXTREMITIES: 1+ bilateral pedal edema. No calf tenderness. Dorsalis pedis +1 bilaterally. Patient has large hematoma to the posterior right thigh. NEUROLOGICAL: Patient is awake, alert and oriented x3. Cranial nerves 2 through 12 are grossly intact. - Labs CBC & Chem 7: 11/23/18 06:05 11/23/18 06:05 Labs: Abnormal Lab Results - Last 24 Hours (Table) 11/22/18 11/22/18 11/23/18 Range/Units 16:26 20:34 06:05 RBC 2.39 L (4.30-5.90) m/uL Hgb 7.9 L (13.0-17.5) gm/dL Hct 23.5 L (39.0-53.0) % RDW 20.7 H (11.5-15.5) % Plt Count 92 L (150-450) k/uL Lymphocytes # 0.4 L (1.0-4.8) k/uL Chloride (98-107) mmol/L Carbon Dioxide (22-30) mmol/L BUN (9-20) mg/dL Glucose (74-99) mg/dL POC Glucose (mg/dL) 210 H 191 H (75-99) mg/dL 11/23/18 11/23/18 11/23/18 Range/Units 06:05 06:29 12:00 RBC (4.30-5.90) m/uL Hgb (13.0-17.5) gm/dL Hct (39.0-53.0) % RDW (11.5-15.5) % Plt Count (150-450) k/uL Lymphocytes # (1.0-4.8) k/uL Chloride 108 H (98-107) mmol/L Carbon Dioxide 21 L (22-30) mmol/L BUN 26 H (9-20) mg/dL Glucose 138 H (74-99) mg/dL POC Glucose (mg/dL) 166 H 114 H (75-99) mg/dL Assessment and Plan Plan: Assessment and Plan: 1. Paroxysmal atrial fibrillation, mild RVR. Anticoagulation on hold due to large hematoma. 2. Large hematoma right thigh with acute blood loss anemia status post transfusion. 3. Fall with gait and balance disturbance and history of normal pressure hydrocephalus. 4. Acute kidney injury and dehydration. 5. Hypertension currently episodes of hypotension. 6. Hyperlipidemia. 7. Diabetes mellitus type 2. 8. COPD. 9. Obstructive sleep apnea on BiPAP. 10. Recent diagnosis of multiple myeloma on chemotherapy at [facility]. 11. Bicytopenia with thrombocytopenia and anemia most likely related to multiple myeloma and chemotherapy. Plan From cardiology's perspective, we'll recommend to continue with current medications. We will follow this gentleman with you now on an as-needed basis only, please on hesitate to call with any questions. DNP note has been reviewed, I agree with a documented findings and plan of care. Patient was seen and examined.
[2018-11-23] MEDS: SULFAMETHOX-TMP 800-160MG 1 EACH TAB PO SCH (15:26)
[2018-11-23 17:02] LABS: Glucose,Whole Blood 230 mg/dL (75-99)
[2018-11-23] MEDS: INSULIN ASPART (NovoLOG) 100 UNIT/ML VIAL SQ SCH ×2 (17:19→21:37)
--- NOTE | 2018-11-23 20:37 | PN ---
PROGRESS NOTE DATE OF SERVICE: 11/23/2018 This 67-year-old gentleman, admitted with a significant fall and subsequent hematoma of the right leg, had ultrasound done previously that showed no evidence of DVT. Hemoglobin is 7.9 today after transfusions; hemoglobin was 6.9. Lactic acid was elevated at 2.3. Creatinine is 1.29. Patient was also complaining of some weakness previously. The patient also has significant orthostatic hypotension. The current blood pressure is 89/64. The patient is being closely monitored. Past medical history reviewed. REVIEW OF SYSTEMS: CARDIOVASCULAR SYSTEM: No angina, palpitations. RESPIRATORY SYSTEM: As mentioned earlier. GI: As mentioned earlier. : No dysuria or retention. NERVOUS SYSTEM: No numbness, weakness. CURRENT MEDICATIONS: Reviewed. They include: 1. Tylenol 500 mg q.6 p.r.n. 2. Zovirax 400 mg p.o. daily. 3. Lipitor 10 mg p.o. daily. 4. Symbicort 160/4.5 two puffs b.i.d. 5. Wellbutrin 300 mg p.o. daily. 6. Hexadrol 4 mg p.o. Friday. 7. Folic acid 1 mg p.o. daily. 8. Atrovent. 9. Magnesium oxide. 10.Melatonin. 11.Glucophage. 12.Lopressor 12.5 mg b.i.d. 13.Ivite. 14.Narcan. 15.Protonix 40 mg. 16.Compazine. 17.Seroquel. 18.Vitamin B1. 19.Bactrim DS. Doses reviewed. PHYSICAL EXAMINATION: Patient is alert, oriented x3. Pulse 126, irregular. Blood pressure 94/60, respiration 18, temperature 97.6, pulse ox 95% on room air. HEENT: Conjunctivae normal. Oral mucosa moist. NECK: No jugular venous distention. No carotid bruit. No lymph node enlargement. CARDIOVASCULAR SYSTEM: S1, S2 muffled. Tachycardic. No S3. Irregular. No S4. RESPIRATORY SYSTEM: Breath sounds diminished at the bases. Scattered rhonchi and crackles. ABDOMEN: Soft, non-tender. No mass palpable. LEGS: Significant hematoma of the right leg with excoriation. Right superficial also present. Movements are slightly painful. NERVOUS SYSTEM: Higher functions as mentioned earlier. Moves all 4 limbs. No focal motor or sensory deficit. LYMPHATICS: No lymph node palpable in neck, axillae or groin. SKIN: As mentioned earlier. JOINTS: No active deforming arthropathy. LABS: WBC 5.9, hemoglobin 7.2, sodium ntd, potassium 4.8. Other labs are noted. ASSESSMENT: 1. Acute right leg extensive hematoma with acute blood loss anemia, status post blood transfusion. 2. Atrial fibrillation with fast ventricular rate. 3. Relative hypotension as well as orthostatic hypotension. 4. Acute renal failure secondary to dehydration. 5. Hyperlipidemia. 6. Diabetes mellitus, type 2. 7. History of chronic obstructive pulmonary disease, asthma. 8. Superficial skin excoriations. 9. Elevated plasma lactic acid, present on admission. 10.History of asthma. 11.History of diabetes mellitus, type 2. 12.Hypertension. 13.History of pneumonia. 14.History of encephalopathy with multiple myeloma, stage III, with bone lesions. 15.History of aspiration pneumonia. 16.History of splenomegaly. 17.History of NPH with INSPECTOR ROUGH CASTINGS shunt. 18.History of peripheral neuropathy. 19.History of obstructive sleep apnea. 20.Hard of hearing. 21.History of methicillin-resistant Staphylococcus aeruginosa. 22.History of coronary artery disease, stent. 23.Depression. 24.Remote history of nicotine dependence. RECOMMENDATIONS AND DISCUSSION: In this 67-year-old gentleman who presented with multiple complex medical issues, as detailed above, at this time I recommend to continue current management, continue with symptomatic treatment. Otherwise at this time I recommend monitoring the blood pressure closely. Monitor the heart rate closely. Cardiology is following the patient closely. I would also recommend repeat labs. Hemoglobin is 7.9. The prognosis is extremely guarded because of multiple complex medical problems. Further recommendations to follow. A copy of this dictation is being forwarded to Dr. Escobar, who is the primary physician. Home medications are reconciled. Will hold the Lisinopril at this time. MMODL / IJN: [id number] / JACQUELINE
[2018-11-23 20:59] LABS: Glucose,Whole Blood 174 mg/dL (75-99)
[2018-11-23] MEDS: QUEtiapine 25 MG TAB PO SCH (21:37)
[2018-11-23] MEDS: HEPARIN SODIUM,PORCINE 5,000 UNIT/ML 1 ML VIAL SQ SCH (21:38)
[2018-11-24 05:50] VITALS: TEMP 97.5
[2018-11-24 06:32] LABS: Glucose,Whole Blood 114 mg/dL (75-99)
[2018-11-24] MEDS: metFORMIN 500 MG TAB PO SCH (06:40)
[2018-11-24] MEDS: PANTOPRAZOLE 40 MG TABLET PO SCH (06:40)
[2018-11-24 06:47] LABS: Anisocytosis Moderate; Basophils % (A) 0 %; Eosinophils # (A) 0.1 k/uL (0-0.7); Eosinophils % (A) 1 %; HCT 25.8 % (39.0-53.0); HGB 8.2 gm/dL (13.0-17.5); Hypochromasia Slight; Lymphocytes # (A) 0.5 k/uL (1.0-4.8); Lymphocytes % (A) 8 %; MCH 32.7 pg (25.0-35.0); MCHC 31.8 g/dL (31.0-37.0); MCV 102.8 fL (80.0-100.0); Macrocytosis Moderate; Mean Platelet Volume 9.1; Monocytes # (A) 0.3 k/uL (0-1.0); Monocytes % (A) 5 %; Neutrophils # (A) 5.1 k/uL (1.3-7.7); Neutrophils % (A) 84 %; Platelet Count 125 k/uL (150-450); RBC 2.51 m/uL (4.30-5.90); RDW 20.7 % (11.5-15.5); WBC 6.1 k/uL (3.8-10.6)
[2018-11-24 06:55] LABS: African American GFR (CKD) >90 (>60 ml/min/1.73 sqM); Anion Gap 7 mmol/L; Blood Urea Nitrogen 31 mg/dL (9-20); Calcium 8.6 mg/dL (8.4-10.2); Carbon Dioxide 21 mmol/L (22-30); Chloride 108 mmol/L (98-107); Glucose 100 mg/dL (74-99); Potassium 4.5 mmol/L (3.5-5.1); Sodium 136 mmol/L (137-145)
[2018-11-24] MEDS: SYMBICORT 160-4.5 MCG INHALER INHALATION SCH (07:15)
[2018-11-24] MEDS: FOLIC ACID 1 MG TAB PO SCH (08:20)
[2018-11-24] MEDS: ATORVASTATIN 10 MG TAB PO SCH (08:20)
[2018-11-24] MEDS: THIAMINE 100 MG TAB PO SCH (08:20)
[2018-11-24] MEDS: VIT A,C & E-LUTEIN-MINERALS 1 EACH TAB PO SCH (08:20)
[2018-11-24] MEDS: ACYCLOVIR 200 MG CAP PO SCH (08:20)
[2018-11-24] MEDS: METOPROLOL TARTRATE 12.5 MG TAB PO SCH (08:20)
[2018-11-24] MEDS: MAGNESIUM OXIDE 400 MG TAB PO SCH (08:20)
[2018-11-24] MEDS: buPROPion 100 MG TAB PO SCH (08:20)
[2018-11-24] MEDS: HEPARIN SODIUM,PORCINE 5,000 UNIT/ML 1 ML VIAL SQ SCH (08:21)
[2018-11-24] MEDS: INSULIN ASPART (NovoLOG) 100 UNIT/ML VIAL SQ SCH ×2 (08:21→11:11)
[2018-11-24 08:26] VITALS: BP 106/67; PULSE 90; RESP 19
[2018-11-24 10:59] LABS: Glucose,Whole Blood 106 mg/dL (75-99)
--- NOTE | 2018-11-25 08:22 | DS ---
DISCHARGE SUMMARY DATE OF SERVICE: 11/24/2018 FINAL DIAGNOSES: 1. Acute significant right leg extensive hematoma with acute blood loss anemia, status post blood transfusion. 2. Atrial fibrillation with fast ventricular rate. 3. Relative hypotension as well as orthostatic hypotension, improved. 4. Acute renal failure secondary dehydration, improved. 5. Hyperlipidemia. 6. Diabetes mellitus type 2. 7. History of chronic obstructive pulmonary disease, asthma. 8. Superficial skin excoriation. 9. Elevated plasma lactic acid, present on admission. 10.History of asthma. 11.History of diabetes mellitus type 2. 12.Hypertension. 13.History of pneumonia. 14.History of encephalopathy with multiple myeloma, stage III with bone lesions. 15.History of aspiration pneumonia. 16.History of splenomegaly. 17.History of NPH and SUPERCHARGER REPAIR SUPERVISOR shunt. 18.History of peripheral neuropathy. 19.History of obstructive sleep apnea. 20.Hard of hearing. 21.History of methicillin-resistant Staphylococcus aureus. 22.History of coronary artery disease, stent. 23.Depression. 24.Remote history of nicotine dependence. DISCHARGE DISPOSITION: The patient will be discharged in stable condition with guarded prognosis. Total time taken 35 minutes. HISTORY OF PRESENT ILLNESS: This 67-year-old gentleman who presented with a past medical history of multiple medical problems being followed by Dr. Escobar in the outpatient was admitted with extensive right leg hematoma after a fall. The patient had acute blood loss anemia. Hemoglobin actually went down to 6.9. Patient multiple transfused. Hemoglobin was 8.2. Anticoagulants including Lovenox has been held at this time. Cardiology saw the patient. Patient improved significantly. On exam, vitals are stable. CARDIOVASCULAR: S1, S2 muffled. ABDOMEN: Soft, nontender. NERVOUS SYSTEM: No focal deficits. CHEST: A few rhonchi. RIGHT LEG: Significant hematoma present. Ultrasound leg was negative for DVT. The patient will be discharged in stable condition with further plans for outpatient followup. DISCHARGE ADVICE: 1. Diet is cardiac. 2. Activity limited until followup. 3. Follow up with Dr. Escobar in 2 to 3 days. 4. Follow up with Dr. Lamb and as well as Dr. Crain, Cardiology, as recommended. MEDICATIONS ARE: 1. Vitamin C, zinc, copper 1 p.o. daily. 2. Spiriva 1 puff daily. 3. Lovastatin 20 mg p.o. daily. 4. Metformin 1000 mg p.o. b.i.d. 5. Bupropion 300 mg p.o. daily. 6. Thiamine 100 mg p.o. daily. 7. Bactrim DS 1 p.o. b.i.d. Friday, Friday, Friday. 8. Seroquel 25 mg q.h.s. 9. Prilosec 20 mg p.o. daily. 10.Melatonin 3 mg p.o. q.h.s. p.r.n. 11.Magnesium oxide 400 mg p.o. daily. 12.Mevacor 20 mg p.o. daily. 13.Folic acid 1 mg daily. 14.Decadron 4 mg p.o. Friday. 15.Coreg 3.125 mg p.o. b.i.d. 16.Symbicort 160/4.5 two puffs b.i.d. 17.Zovirax 400 mg p.o. b.i.d. 18.Tylenol 500 mg p.o. q.6 p.r.n. 19.Compazine 10 mg p.o. daily p.r.n. Hold lisinopril and enoxaparin for now and then to be evaluated in the outpatient setting. MMODL / IJN: [id number] /
== END 2018-11-24 12:34 | disposition home health service (06) | DRG 812 ==
LOC: EC 10:13 → 3SCARD 13:31
PROVIDERS: ADMIT Internal Medicine; ATTEND Internal Medicine
PROC: 30233N1 Transfusion of Nonautologous Red Blood Cells into Peripheral Vein, Percutaneous Approach (ICD-10-PCS; principal; 2018-11-20)
DX: D62 Acute posthemorrhagic anemia (principal); C90.00 Multiple myeloma not having achieved remission; E87.2 Acidosis; N17.9 Acute kidney failure, unspecified; G91.2 (Idiopathic) normal pressure hydrocephalus; D69.59 Other secondary thrombocytopenia; G62.9 Polyneuropathy, unspecified; D64.81 Anemia due to antineoplastic chemotherapy; I48.2 Chronic atrial fibrillation; J44.9 Chronic obstructive pulmonary disease, unspecified; E11.9 Type 2 diabetes mellitus without complications; E78.5 Hyperlipidemia, unspecified; E86.0 Dehydration; F32.9 Major depressive disorder, single episode, unspecified; G47.33 Obstructive sleep apnea (adult) (pediatric); H35.30 Unspecified macular degeneration; H54.8 Legal blindness, as defined in USA; I10 Essential (primary) hypertension; I25.10 Atherosclerotic heart disease of native coronary artery without angina pectoris; I95.1 Orthostatic hypotension; S70.11XA Contusion of right thigh, initial encounter; R26.9 Unspecified abnormalities of gait and mobility; H91.93 Unspecified hearing loss, bilateral; T45.1X5A Adverse effect of antineoplastic and immunosuppressive drugs, initial encounter; E66.9 Obesity, unspecified; Z68.37 Body mass index [BMI] 37.0-37.9, adult; Z79.01 Long term (current) use of anticoagulants; Z79.51 Long term (current) use of inhaled steroids; Z79.84 Long term (current) use of oral hypoglycemic drugs; Z79.899 Other long term (current) drug therapy; Z98.2 Presence of cerebrospinal fluid drainage device; Z87.891 Personal history of nicotine dependence; Z95.5 Presence of coronary angioplasty implant and graft; Z87.01 Personal history of pneumonia (recurrent); Z86.14 Personal history of Methicillin resistant Staphylococcus aureus infection; Z85.828 Personal history of other malignant neoplasm of skin; Z86.718 Personal history of other venous thrombosis and embolism; Z82.49 Family history of ischemic heart disease and other diseases of the circulatory system; W19.XXXA Unspecified fall, initial encounter
CPT/HCPCS: 36415; 71046; 80048; 80053; 81003; 82550; 83605; 83735; 84484; 85025; 85610; 85730; 86850; 86900; 86901; 86920; 93005; 93306; 94640; 96360; 96361; 99285

== ENCOUNTER 2019-01-13 20:34 | Observation (INO) | payer MEDICARE ==
--- NOTE | 2019-01-13 20:54 | ED ---
SOB HPI - General Chief Complaint: Shortness of Breath Stated Complaint: Extremity Weakness Time Seen by Provider: 01/13/19 20:35 Source: patient, EMS Mode of arrival: EMS Limitations: no limitations - History of Present Illness Initial Comments: This is a 68-year-old male presents with complaints of shortness of breath exertional dyspnea and leg weakness. Initially EMS was called for shortness of breath than the concern was a possible stroke consistent a stroke scale was negative on several occasions. He reportedly right leg weakness to paramedics bilateral leg weakness to me. Currently he feels better he states he states he also has some slurred speech really which is resolved MD Complaint: shortness of breath - Related Data Home Medications Medication Instructions Recorded Confirmed Lovastatin [Mevacor] 20 mg PO DAILY 09/25/18 01/13/19 metFORMIN HCL [Glucophage] 1,000 mg PO BID 09/25/18 01/13/19 Acyclovir [Zovirax] 400 mg PO BID 11/20/18 01/13/19 Budesonide-Formot 160-4.5 Mcg 2 puff INHALATION RT-BID 11/20/18 01/13/19 [Symbicort 160-4.5 Mcg Inhaler] Carvedilol [Coreg] 3.125 mg PO BID 11/20/18 01/13/19 Dexamethasone [Decadron] 40 mg PO VALVERDE 11/20/18 01/13/19 Folic Acid 1 mg PO DAILY 11/20/18 01/13/19 Omeprazole [PriLOSEC] 20 mg PO DAILY 11/20/18 01/13/19 QUEtiapine FUMARATE [SEROquel] 25 mg PO HS 11/20/18 01/13/19 buPROPion [Wellbutrin] 300 mg PO DAILY 11/20/18 01/13/19 Apixaban [Eliquis] 2.5 mg PO BID 01/13/19 01/13/19 Dicyclomine [Bentyl] 40 mg PO HS 01/13/19 01/13/19 LORazepam [Ativan] 0.5 mg PO Q6H PRN 01/13/19 01/13/19 Lipase/Protease/Amylase [Creon Dr 48,000 units PO AC-TID 01/13/19 01/13/19 24,000 Units Capsule] Lisinopril [Zestril] 20 mg PO DAILY 01/13/19 01/13/19 Tiotropium [place] [Spiriva 1 puff INHALATION RT-DAILY 01/13/19 01/13/19 Respimat] Allergies Allergy/AdvReac Type Severity Reaction Status Date / Time No Known Allergies Allergy Verified 01/13/19 22:05 Review of Systems ROS Statement: Those systems with pertinent positive or pertinent negative responses have been documented in the HPI. ROS Other: All systems not noted in ROS Statement are negative. Past Medical History Past Medical History: Atrial Fibrillation, Asthma, COPD, Diabetes Mellitus, Hy pertension, Pneumonia Additional Past Medical History / Comment(s): Pt recently seen in [facility] ER on 09/25/18 for low hgb, R lower back hematoma, auditory and visual hallucinations, encephalopathy and was transferred to [facility]. At [facility] pt was diagnosed with multiple myeloma stage III with bone lesions (bilateral hips/femurs and spine), cognitive deficit thought d/t cancer. Pt had aspiration pneumonia while there and was intubated/vented. He was septic. He also had falls. Other diagnosis while at [facility] include acute renal failure, anemia, bilateral lower extremity DVTs, spleenomegaly. He was started on chemotherapy. Other hx: NPH with ELECTRIC MOTOR REPAIRER shunt, NIDDM type II, neuropathy in one great toe, ALKA with Cpap use, past hospitalization for bilateral cellulitis, bronchitis, macular degeneration bilaterally and is legally blind L eye, [place] bilaterally-wears enhancers, pt has lost 30# since 06/2018. History of Any Multi-Drug Resistant Organisms: MRSA Date of last positivie culture/infection: 2005 MDRO Source:: face Past Surgical History: Heart Catheterization With Stent Additional Past Surgical History / Comment(s): Bone marrow biopsy, ELECTRIC MOTOR REPAIRER shunt, [place] Hs surgery for deep basal cell skin cancer on face with L side fac post surgical infection, colonoscopy. Past Anesthesia/Blood Transfusion Reactions: No Reported Reaction Additional Past Anesthesia/Blood Transfusion Reaction / Comment(s): Pt has rece ived blood without reaction. Date of Last Stent Placement:: 2008 in [facility] Past Psychological History: Depression Smoking Status: Former smoker - Past Family History Father Additional Family Medical History / Comment(s): Father had NPH with a ELECTRIC MOTOR REPAIRER shunt. He lived to be 84 yrs old. Mother Family Medical History: Deep Vein Thrombosis (DVT) Additional Family Medical History / Comment(s): Mother at the age of 62- suspect d/t DVTs. General Exam - General Exam Comments Initial Comments: This is a well-developed well-nourished awake alert oriented times 3 male Limitations: no limitations General appearance: alert, in no apparent distress Head exam: Present: atraumatic, normocephalic, normal inspection Eye exam: Present: normal appearance, PERRL, EOMI. Absent: scleral icterus, conjunctival injection, periorbital swelling ENT exam: Present: normal exam, mucous membranes moist Neck exam: Present: normal inspection. Absent: tenderness, meningismus, lymphadenopathy Respiratory exam: Present: normal lung sounds bilaterally. Absent: respiratory distress, wheezes, rales, rhonchi, stridor Cardiovascular Exam: Present: regular rate, normal rhythm, normal heart sounds. Absent: systolic murmur, diastolic murmur, rubs, gallop, clicks GI/Abdominal exam: Present: soft, normal bowel sounds. Absent: distended, tenderness, guarding, rebound, rigid Extremities exam: Present: normal inspection, full ROM, normal capillary refill, pedal edema. Absent: tenderness, joint swelling, calf tenderness Back exam: Present: normal inspection Neurological exam: Present: alert, oriented X3, CN II-XII intact Psychiatric exam: Present: normal affect, normal mood Skin exam: Present: warm, dry, intact, normal color. Absent: rash Course Vital Signs 01/13/19 01/13/19 01/13/19 20:40 21:52 22:46 Temperature 97.8 F Pulse Rate 87 80 Respiratory 18 20 16 Rate Blood Pressure 127/101 129/93 O2 Sat by Pulse 98 98 Oximetry - Reevaluation(s) Reevaluation #1: 01/13/19 22:57 Reveals improvement of his symptoms his is present and states his speech carrying have improved. Reevaluation #2: 01/13/19 23:00 A she does have a history of DVT in the past also has a history of multiple myeloma. Medical Decision Making - Lab Data Result diagrams: 01/13/19 21:10 01/13/19 21:10 Lab Results 01/13/19 01/13/19 01/13/19 Range/Units 21:10 21:10 21:10 WBC 3.7 L (3.8-10.6) k/uL RBC 3.61 L (4.30-5.90) m/uL Hgb 11.9 L D (13.0-17.5) gm/dL Hct 36.7 L (39.0-53.0) % MCV 101.8 H (80.0-100.0) fL MCH 33.1 (25.0-35.0) pg MCHC 32.5 (31.0-37.0) g/dL RDW 17.3 H (11.5-15.5) % Plt Count 75 L (150-450) k/uL Neutrophils % 79 % Lymphocytes % 10 % Monocytes % 7 % Eosinophils % 3 % Basophils % 0 % Neutrophils # 2.9 (1.3-7.7) k/uL Lymphocytes # 0.4 L (1.0-4.8) k/uL Monocytes # 0.3 (0-1.0) k/uL Eosinophils # 0.1 (0-0.7) k/uL Basophils # 0.0 (0-0.2) k/uL Manual Slide Review Performed Anisocytosis Slight Macrocytosis Slight PT 11.1 (9.0-12.0) sec INR 1.0 (<1.2) APTT 22.8 (22.0-30.0) sec D-Dimer 1.00 H (<0.60) mg/L FEU Sodium 140 (137-145) mmol/L Potassium 3.4 L (3.5-5.1) mmol/L Chloride 107 (98-107) mmol/L Carbon Dioxide 24 (22-30) mmol/L Anion Gap 9 mmol/L BUN 23 H (9-20) mg/dL Creatinine 0.80 (0.66-1.25) mg/dL Est GFR (CKD-EPI)AfAm >90 (>60 ml/min/1.73 sqM) Est GFR (CKD-EPI)NonAf >90 (>60 ml/min/1.73 sqM) Glucose 162 H (74-99) mg/dL Calcium 8.4 (8.4-10.2) mg/dL Magnesium 1.8 (1.6-2.3) mg/dL Total Bilirubin 0.3 (0.2-1.3) mg/dL AST 23 (17-59) U/L ALT 36 (21-72) U/L Alkaline Phosphatase 73 (38-126) U/L Creatine Kinase 20 L (55-170) U/L Troponin I (0.000-0.034) ng/mL NT-Pro-B Natriuret Pep pg/mL Total Protein 5.6 L (6.3-8.2) g/dL Albumin 3.5 (3.5-5.0) g/dL 01/13/19 01/13/19 Range/Units 21:10 21:10 WBC (3.8-10.6) k/uL RBC (4.30-5.90) m/uL Hgb (13.0-17.5) gm/dL Hct (39.0-53.0) % MCV (80.0-100.0) fL MCH (25.0-35.0) pg MCHC (31.0-37.0) g/dL RDW (11.5-15.5) % Plt Count (150-450) k/uL Neutrophils % % Lymphocytes % % Monocytes % % Eosinophils % % Basophils % % Neutrophils # (1.3-7.7) k/uL Lymphocytes # (1.0-4.8) k/uL Monocytes # (0-1.0) k/uL Eosinophils # (0-0.7) k/uL Basophils # (0-0.2) k/uL Manual Slide Review Anisocytosis Macrocytosis PT (9.0-12.0) sec INR (<1.2) APTT (22.0-30.0) sec D-Dimer (<0.60) mg/L FEU Sodium (137-145) mmol/L Potassium (3.5-5.1) mmol/L Chloride (98-107) mmol/L Carbon Dioxide (22-30) mmol/L Anion Gap mmol/L BUN (9-20) mg/dL Creatinine (0.66-1.25) mg/dL Est GFR (CKD-EPI)AfAm (>60 ml/min/1.73 sqM) Est GFR (CKD-EPI)NonAf (>60 ml/min/1.73 sqM) Glucose (74-99) mg/dL Calcium (8.4-10.2) mg/dL Magnesium (1.6-2.3) mg/dL Total Bilirubin (0.2-1.3) mg/dL AST (17-59) U/L ALT (21-72) U/L Alkaline Phosphatase (38-126) U/L Creatine Kinase (55-170) U/L Troponin I <0.012 (0.000-0.034) ng/mL NT-Pro-B Natriuret Pep 1390 pg/mL Total Protein (6.3-8.2) g/dL Albumin (3.5-5.0) g/dL - EKG Data -: EKG Interpreted by Me (Atrial fibrillation rate is 79 QRS 94 QT since QTC 380/444 left exodeviatio) - Radiology Data Radiology results: report reviewed (I did review the imaging and report no evidence of DVT), image reviewed Critical Care Time Critical Care Time: Yes Critical Care Time: Is a critical care time which includes initial presentation with history physical labs x-rays several reevaluation patient responsive therapy discuss with the patient family regarding findings discussed with the main physician Dr. Garcias. Documentation above city recorder Disposition Clinical Impression: TIA (transient ischemic attack), Exertional dyspnea Disposition: ADMITTED IP TO THIS [facility] Condition: Fair Referrals: Jane Escobar MD [Primary Care Provider] - 1-2 days
--- NOTE | 2019-01-13 21:23 | XR ---
EXAMINATION: XR chest 2V DATE AND TIME: 01/13/2019 9:02 PM CLINICAL INDICATION: PHH; difficulty breathing TECHNIQUE: Departmental protocol COMPARISON: 11/20/2018 FINDINGS: The lungs appear to be clear. The pleural spaces are negative. The cardiac silhouette is moderately enlarged. The remainder of the mediastinal silhouette is unremar kable. The skeletal structures and soft tissues are negative for acute findings. IMPRESSION: No definite acute process.
[2019-01-13 21:24] LABS: Anisocytosis Slight; Basophils % (A) 0 %; Eosinophils # (A) 0.1 k/uL (0-0.7); Eosinophils % (A) 3 %; HCT 36.7 % (39.0-53.0); Lymphocytes # (A) 0.4 k/uL (1.0-4.8); Lymphocytes % (A) 10 %; MCH 33.1 pg (25.0-35.0); MCHC 32.5 g/dL (31.0-37.0); MCV 101.8 fL (80.0-100.0); Macrocytosis Slight; Mean Platelet Volume 9.1; Monocytes # (A) 0.3 k/uL (0-1.0); Monocytes % (A) 7 %; Neutrophils # (A) 2.9 k/uL (1.3-7.7); Neutrophils % (A) 79 %; RBC 3.61 m/uL (4.30-5.90); RDW 17.3 % (11.5-15.5); WBC 3.7 k/uL (3.8-10.6)
[2019-01-13 21:30] LABS: HGB 11.9 gm/dL (13.0-17.5)
[2019-01-13 21:34] LABS: ALT 36 U/L (21-72); AST 23 U/L (17-59); African American GFR (CKD) >90 (>60 ml/min/1.73 sqM); Albumin 3.5 g/dL (3.5-5.0); Alkaline Phosphatase 73 U/L (38-126); Anion Gap 9 mmol/L; Blood Urea Nitrogen 23 mg/dL (9-20); Calcium 8.4 mg/dL (8.4-10.2); Carbon Dioxide 24 mmol/L (22-30); Chloride 107 mmol/L (98-107); Creatine Kinase 20 U/L (55-170); Glucose 162 mg/dL (74-99); Magnesium 1.8 mg/dL (1.6-2.3); Potassium 3.4 mmol/L (3.5-5.1); Sodium 140 mmol/L (137-145); Total Bilirubin 0.3 mg/dL (0.2-1.3); Total Protein 5.6 g/dL (6.3-8.2)
[2019-01-13 21:37] LABS: Partial Thromboplastin Time 22.8 sec (22.0-30.0); Prothrombin Time 11.1 sec (9.0-12.0)
--- NOTE | 2019-01-13 21:45 | CT ---
EXAMINATION: CT brain wo con DATE AND TIME: 01/13/2019 9:28 PM CLINICAL INDICATION: History of multiple myeloma; Pain TECHNIQUE: Standard departmental protocol.; 1109.4 COMPARISON: 09/25/2018 FINDINGS: PHYSICS TECHNICAL OFFICER shunt catheter enters from a right posterolateral approach to have its tip at the midlin e of the body of the right lateral ventricle, unchanged in appearance compared the prior study. The m ild panventriculomegaly pattern seen appears unchanged. The calvarium is intact. There is no intracranial hemorrhage. There is no intracranial mass or mass effect. No definite new intra-axial or extra-axial attenuation defect. The paranasal sinuses, middle ear cavities, and mastoid sinus air cells are clear. The orbits are unremarkable. IMPRESSION: Stable appearance when compared to the 09/25/2018 CT.
[2019-01-13 22:07] LABS: Platelet Count 75 k/uL (150-450)
--- NOTE | 2019-01-13 22:53 | US ---
EXAM: US Duplex Left Lower Extremity Veins CLINICAL HISTORY: Pain. Swelling left leg x 4 months. Hx DVT. Multiple myeloma. Pt on blood thinners. TECHNIQUE: Left lower extremity deep venous system is examined utilizing real time linear array sonography with graded compression, doppler sonography and color-flow sonography. VESSELS IMAGED: External Iliac Vein (EIV) Common Femoral Vein Deep Femoral Vein Femoral Vein Popliteal Vein Proximal Calf Veins COMPARISON: No relevant prior studies available. FINDINGS: veins: Unremarkable. No D knee VT in the visualized. The veins demonstrate normal color flow, are normally compressible, with normal phasic flow and/or augmentation response. Soft tissues: No acute findings. No popliteal cyst. IMPRESSION: Left Leg: No evidence of DVT in veins imaged although study is technically limited due to edema. Distal femoral vein and prox calf vein imaging is very limited.
[2019-01-13] MEDS ORDERED: LORazepam 0.5 MG TAB PO PRN (23:03)
[2019-01-13] MEDS ORDERED: SODIUM CHLORIDE 0.9% 1,000 ML IV SCH (23:15)
[2019-01-14 03:54] LABS: Cholesterol 130 mg/dL (<200); HDL Cholesterol 40 mg/dL (40-60); LDL Cholesterol,Calculated 47 mg/dL (0-99); Triglycerides 213 mg/dL (<150)
[2019-01-14 06:01] LABS: Glucose,Whole Blood 119 mg/dL (75-99)
[2019-01-14] MEDS: INSULIN ASPART (NovoLOG) 100 UNIT/ML VIAL SQ SCH ×2 (06:02→11:50)
[2019-01-14] MEDS: LIPASE 5,000/PROTEASE 17,000/AMYLASE 24,000 PO SCH ×2 (06:46→11:52)
[2019-01-14] MEDS ORDERED: CARVEDILOL 3.125 MG TAB PO SCH (07:30)
[2019-01-14] MEDS ORDERED: SYMBICORT 160-4.5 MCG INHALER INHALATION SCH (08:00)
[2019-01-14] MEDS ORDERED: IPRATROPIUM 0.5 MG/2.5 ML NEBU INHALATION SCH (08:00)
[2019-01-14] MEDS: IPRATROPIUM 0.5 MG/2.5 ML NEBU INHALATION SCH ×3 (08:13→15:51)
[2019-01-14] MEDS ORDERED: FOLIC ACID 1 MG TAB PO SCH (09:00)
[2019-01-14] MEDS ORDERED: buPROPion 100 MG TAB PO SCH (09:00)
[2019-01-14] MEDS ORDERED: APIXABAN 2.5 MG TABLET PO SCH (09:00)
[2019-01-14] MEDS ORDERED: ATORVASTATIN 10 MG TAB PO SCH (09:00)
[2019-01-14] MEDS ORDERED: LISINOPRIL 20 MG TAB PO SCH (09:00)
[2019-01-14] MEDS ORDERED: metFORMIN 500 MG TAB PO SCH (09:00)
[2019-01-14] MEDS ORDERED: PANTOPRAZOLE 40 MG TABLET PO SCH (09:00)
[2019-01-14] MEDS ORDERED: ACYCLOVIR 200 MG CAP PO SCH (09:00)
[2019-01-14 09:21] VITALS: TEMP 97.6
[2019-01-14 11:27] LABS: Glucose,Whole Blood 112 mg/dL (75-99)
[2019-01-14 12:06] VITALS: BP 146/106; PULSE 91; RESP 19
--- NOTE | 2019-01-14 13:37 | P.CNNES ---
History of Present Illness Consult date: 01/14/19 Reason for Consult: Leg weakness Chief complaint: Shortness of breath and leg weakness History of Present Illness: REFERRING PHYSICIAN: Dr. Perez Levi HISTORY OF PRESENT ILLNESS: Thank you for allowing me to evaluate Mr. Gary Tristan. Mr. Tristan is a 68-year-old right-handed male with past medical history of atrial fibrillation on the list, asthma, COPD, diabetes, hypertension, NPH status post TOUCH UP WORKER shunt placement, recent diagnosis of multiple myeloma on chemotherapy, macular degeneration bilaterally (blind in left eye), bilateral LE DVTs, who presents with dysarthria and dragging of his left leg. is at bedside. Patient states that last night around 7 PM, patient had finishes dinner when history having slurred speech. 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 Patient had to step down as patient had NPH in the due to TOUCH UP WORKER shunt. Patient has improved significantly in terms of his mental status, his walk, and his urinary symptoms. Patient's symptoms of dysarthria and left leg dragging have resolved. Patient and state that patient has been compliant with all his medications. Patient had an MRI brain done a couple months ago, and incidental finding of any old small stroke was found on the right side of the brain. PAST MEDICAL HISTORY: atrial fibrillation on the list, asthma, COPD, diabetes, hypertension, NPH status post TOUCH UP WORKER shunt placement, recent diagnosis of multiple myeloma on chem otherapy, macular degeneration bilaterally (blind in left eye), bilateral LE DVTs, basal cell skin cancer PAST SURGICAL HISTORY: Heart catheterization with stent, TOUCH UP WORKER shunt HOME MEDICATIONS: Lovastatin 20 once daily, metformin 1000 mg twice a day, diplopia related wounds daily, Seroquel 25 mg daily at bedtime, omeprazole 20 mg daily, folic acid 1 mg daily, dexamethasone 40 mg, Coreg 3.125 g twice a day, Symbicort, acyclovir 400 mg by mouth twice a day, history, lisinopril 20 mg daily, eliquis 2.5 mg by mouth twice a day Ativan when necessary ALLERGIES: NO KNOWN DRUG ALLERGIES SOCIAL HISTORY: Former smoker FAMILY HISTORY: Father had NPH with a TOUCH UP WORKER shunt. Mother suspected to be secondary to the. REVIEW OF SYSTEMS: The 14 systems are reviewed and no additional points are identified compared to the review of systems documented history and physical PHYSICAL EXAMINATION: VITAL SIGNS: Temperature 97.6 pulse rate 70 respiratory 18 pressure 144/107 O2 saturation 99% on room air GEN.: NAD, pleasant and cooperative HEENT: NCAT, sclera without icterus NECK: Supple SKIN AND EXTREMITIES: Warm to touch, no edema NEURO: MENTAL STATUS: Patient alert and oriented to self, place,. Able to name the current president. Speech fluent, able to name and repeat, following all commands readily. No right and left disorientation CRANIAL NERVES II THROUGH XII: II: Pupils are equal and reactive to light symmetrically. Visual rachel are intact. III, IV, : Mild right eye ptosis. Extraocular movements full. No nystagmus. V: Facial sensation intact from V1-3. VII. mild nasolabial fold flattening on the left. VIII: Hearing intact to finger rub bilaterally. IX, X: Symmetric palate elevation. XII: Shoulder shrug intact. XII: Tongue midline without fasciculation or atrophy. MOTOR: Normal bulk/tone. No pronator drift or tremor. Strength is 5/5 throughout all 4 extremities. SENSORY: Intact to light touch, temperature in all 4 extremities. Romberg is negative. REFLEXES: 1+ throughout. Toes are downgoing. COORDINATION: Finger to nose intact. No dysmetria. GAIT: Slightly wide-based gait and cautious, but able to walk without a walker on his own. DIAGNOSTIC TESTING: LABORATORY: WBC 3.7 hemoglobin 11.9 weight at 75 and PT 11.1 INR 1.0 sodium 140 potassium 3.4 chloride 107 bicarb 24 BUN 23 creatinine 0.8 glucose 162 AST 23 ALT 36 troponins <0.012 total cholesterol 138 LDL 47 HDL 40 triglycerides 213 IMAGING: CT head without contrast 01/12/2019: Mild periventricular white matter ischemic Changes with age-related atrophy ASSESSMENT: Mr. Tristan is a 68-year-old right-handed male with past medical history of atrial fibrillation on the list, asthma, COPD, diabetes, hypertension, NPH status post TOUCH UP WORKER shunt placement, recent diagnosis of multiple myeloma on chemotherapy, macular degeneration bilaterally (blind in left eye), bilateral LE DVTs, who presents with dysarthria and dragging of his left leg. Patient had a recent MRI brainshowed a small stroke on the right side of his hemisphere. We do not have his imaging record. However, patient with multiple risk factors for stroke such as atrial fibrillation and multiple myeloma. Patient is already on Eliquis 2.5 mg twice a day dosing. Usual dosing for stroke prevention with liquids for patients with nonvalvular atrial fibrillation is 5 mg twice a day dosing. Unclear why the patient is on a lower dose of Eliquis. Patient should follow-up with his primary care doctor regarding possibly changing his dose of Eliquis. If primary care doctor is also unclear about the lower dose of Eliquis, patient should follow up with his neurologist sooner. Patient has an appointment with a neurologist in March. Neurology will sign off at this time. Past Medical History Past Medical History: Atrial Fibrillation, Asthma, COPD, Diabetes Mellitus, Deep Vein Thrombosis (DVT), Hypertension, Pneumonia Additional Past Medical History / Comment(s): Pt recently seen in [facility] ER on 09/25/18 for low hgb, R lower back hematoma, auditory and visual hallucinations, encephalopathy and was transferred to [facility]. At [facility] pt was diagnosed with multiple myeloma stage III with bone lesions (bilateral hips/femurs and spine), cognitive deficit thought d/t cancer. Pt had aspiration pneumonia while there and was intubated/vented. He was septic. He also had falls. Other diagnosis while at [facility] include acute renal failure, anemia, bilateral lower extremity DVTs, spleenomegaly. He was started on chemotherapy. 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 History of Any Multi-Drug Resistant Organisms: MRSA Date of last positivie culture/infection: 2005 MDRO Source:: face Past Surgical History: Heart Catheterization With Stent Additional Past Surgical History / Comment(s): Bone marrow biopsy, TOUCH UP WORKER shunt, MOHs surgery for deep basal cell skin cancer on face with L side fac post surgical infection, colonoscopy. Past Anesthesia/Blood Transfusion Reactions: No Reported Reaction Additional Past Anesthesia/Blood Transfusion Reaction / Comment(s): Pt has received blood without reaction. Date of Last Stent Placement:: 2008 in [facility] Past Psychological History: Depression Additional Psychological History / Comment(s): Pt resides with his spouse. He recently had a lengthy hospitalization at [facility]. H He is receiving [facility]-including speech/OT/PT. He has had falls. He is walking with assistance with a walker Spouse states pt has some cognitive deficits d/t cancer which was recently diagnosed. Spouse is pt's DPOA. Smoking Status: Former smoker Past Alcohol Use History: Rare Additional Past Alcohol Use History / Comment(s): Pt started smoking in 1965 and quit in 2005. Past Drug Use History: None Reported Additional Drug Use History / Comment(s): social alcohol use - Past Family History Father Additional Family Medical History / Comment(s): Father had NPH with a TOUCH UP WORKER shunt. He lived to be 84 yrs old. Mother Family Medical History: Deep Vein Thrombosis (DVT) Additional Family Medical History / Comment(s): Mother at the age of 62-suspect d/t DVTs. Medications and Allergies Home Medications Medication Instructions Recorded Confirmed Type Lovastatin [Mevacor] 20 mg PO DAILY 09/25/18 01/13/19 History metFORMIN HCL [Glucophage] 1,000 mg PO BID 09/25/18 01/13/19 History Acyclovir [Zovirax] 400 mg PO BID 11/20/18 01/13/19 History Budesonide-Formot 160-4.5 Mcg 2 puff INHALATION RT-BID 11/20/18 01/13/19 History [Symbicort 160-4.5 Mcg Inhaler] Carvedilol [Coreg] 3.125 mg PO BID 11/20/18 01/13/19 History Dexamethasone [Decadron] 40 mg PO VALVERDE 11/20/18 01/13/19 History Folic Acid 1 mg PO DAILY 11/20/18 01/13/19 History Omeprazole [PriLOSEC] 20 mg PO DAILY 11/20/18 01/13/19 History QUEtiapine FUMARATE [SEROquel] 25 mg PO HS 11/20/18 01/13/19 History buPROPion [Wellbutrin] 300 mg PO DAILY 11/20/18 01/13/19 History Apixaban [Eliquis] 2.5 mg PO BID 01/13/19 01/13/19 History Dicyclomine [Bentyl] 40 mg PO HS 01/13/19 01/13/19 History LORazepam [Ativan] 0.5 mg PO Q6H PRN 01/13/19 01/13/19 History Lipase/Protease/Amylase [Carol Piedra 48,000 units PO AC-TID 01/13/19 01/13/19 History 24,000 Units Capsule] Lisinopril [Zestril] 20 mg PO DAILY 01/13/19 01/13/19 History Tiotropium [place] [Spiriva 1 puff INHALATION RT-DAILY 01/13/19 01/13/19 History Respimat] Allergies Allergy/AdvReac Type Severity Reaction Status Date / Time No Known Allergies Allergy Verified 01/13/19 22:05 Physical Examination - Vital Signs Vital Signs: Vital Signs Temp Pulse Pulse Resp BP BP Pulse Ox 01/14/19 08:29 60 01/14/19 08:16 60 01/14/19 08:10 97.6 F 70 18 144/107 99 01/14/19 04:39 52 L 14 142/78 95 01/14/19 02:32 97.9 F 70 15 161/95 95 01/14/19 00:40 74 18 131/101 96 01/13/19 22:46 80 16 129/93 98 01/13/19 21:52 20 01/13/19 20:40 97.8 F 87 18 127/101 98 Intake and Output 01/13/19 01/14/19 01/14/19 22:59 06:59 14:59 Intake Total 240 Balance 240 Intake: Oral 240 Other: Voiding Method Toilet Urinal # Voids 1 1 Weight 117.934 kg 125.6 kg Results - Laboratory Findings CBC and BMP: 01/13/19 21:10 01/13/19 21:10 Abnormal Lab Findings: Abnormal Labs 01/13/19 01/13/19 01/13/19 21:10 21:10 21:10 WBC 3.7 L RBC 3.61 L Hgb 11.9 L D Hct 36.7 L MCV 101.8 H RDW 17.3 H Plt Count 75 L Lymphocytes # 0.4 L D-Dimer 1.00 H Potassium 3.4 L BUN 23 H Glucose 162 H POC Glucose (mg/dL) Creatine Kinase 20 L Total Protein 5.6 L Triglycerides 01/14/19 01/14/19 03:30 05:57 WBC RBC Hgb Hct MCV RDW Plt Count Lymphocytes # D-Dimer Potassium BUN Glucose POC Glucose (mg/dL) 119 H Creatine Kinase Total Protein Triglycerides 213 H
--- NOTE | 2019-01-14 15:38 | P.CRDCN ---
History of Present Illness Consult date: 01/14/19 Requesting physician: Gigi E Sheet Reason for Consult (text): Eliquis dosing Chief complaint: TIA History of present illness: This is a 67-year-old male patient of Dr. Crain with past medical history of chronic atrial fibrillation on anticoagulation, COPD, diabetes mellitus type 2, hypertension, normal pressure hydrocephalus status post shunt, recent diagnosis of stage III multiple myeloma on chemotherapy for the past 3-4 weeks on Mondays and at [facility]. Patient does not recall his chemotherapy. Patient also has obstructive sleep apnea on BiPAP. He had a history of a right thigh hematoma in November of this year which time his Eliquis was discontinued. This was resumed after the fact, added 2-1/2 mg by mouth twice a day dose. The and the patient are unsure exactly who resumed it at that dose. He presented to the hospital on this occasion with TIA, his symptoms completely resolved within 30 minutes. Blood pressure 146/106, heart rate 90, 98% on room air. Blood cell count 3.7, hemoglobin 11.9, platelet count 75. D-dimer 1.0. Sodium 140, potassium 3.4, BUN 23 and creatinine 0.8. Troponins are negative 3. EKG shows atrial fibrillation with a controlled ventricular response. Past Medical History Past Medical History: Atrial Fibrillation, Asthma, COPD, Diabetes Mellitus, Deep Vein Thrombosis (DVT), Hypertension, Pneumonia Additional Past Medical History / Comment(s): Pt recently seen in [facility] ER on 09/25/18 for low hgb, R lower back hematoma, auditory and visual hallucinations, encephalopathy and was transferred to [facility]. At [facility] pt was diagnosed with multiple myeloma stage III with bone lesions (bilateral hips/femurs and spine), cognitive deficit thought d/t cancer. Pt had aspiration pneumonia while there and was intubated/vented. He was septic. He also had falls. Other diagnosis while at [facility] include acute renal failure, anemia, bilateral lower extremity DVTs, spleenomegaly. He was started on chemotherapy. 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 History of Any Multi-Drug Resistant Organisms: MRSA Date of last positivie culture/infection: 2005 MDRO Source:: face Past Surgical History: Heart Catheterization With Stent Additional Past Surgical History / Comment(s): Bone marrow biopsy, SUPERVISOR LOGGING shunt, MOHs surgery for deep basal cell skin cancer on face with L side fac post surgical infection, colonoscopy. Past Anesthesia/Blood Transfusion Reactions: No Reported Reaction Additional Past Anesthesia/Blood Transfusion Reaction / Comment(s): Pt has received blood without reaction. Date of Last Stent Placement:: 2008 in [facility] Past Psychological History: Depression Additional Psychological History / Comment(s): Pt resides with his spouse. He recently had a lengthy hospitalization at [facility]. H He is receiving [facility]-including speech/OT/PT. He has had falls. He is walking with assistance with a walker Spouse states pt has some cognitive deficits d/t cancer which was recently diagnosed. Spouse is pt's DPOA. Smoking Status: Former smoker Past Alcohol Use History: Rare Additional Past Alcohol Use History / Comment(s): Pt started smoking in 1965 and quit in 2005. Past Drug Use History: None Reported Additional Drug Use History / Comment(s): social alcohol use - Past Family History Father Additional Family Medical History / Comment(s): Father had NPH with a SUPERVISOR LOGGING shunt. He lived to be 84 yrs old. Mother Family Medical History: Deep Vein Thrombosis (DVT) Additional Family Medical History / Comment(s): Mother at the age of 62- suspect d/t DVTs. Medications and Allergies Home Medications Medication Instructions Recorded Confirmed Type Lovastatin [Mevacor] 20 mg PO DAILY 09/25/18 01/13/19 History metFORMIN HCL [Glucophage] 1,000 mg PO BID 09/25/18 01/13/19 History Acyclovir [Zovirax] 400 mg PO BID 11/20/18 01/13/19 History Budesonide-Formot 160-4.5 Mcg 2 puff INHALATION RT-BID 11/20/18 01/13/19 History [Symbicort 160-4.5 Mcg Inhaler] Carvedilol [Coreg] 3.125 mg PO BID 11/20/18 01/13/19 History Dexamethasone [Decadron] 40 mg PO ARORA 11/20/18 01/13/19 History Folic Acid 1 mg PO DAILY 11/20/18 01/13/19 History Omeprazole [PriLOSEC] 20 mg PO DAILY 11/20/18 01/13/19 History QUEtiapine FUMARATE [SEROquel] 25 mg PO HS 11/20/18 01/13/19 History buPROPion [Wellbutrin] 300 mg PO DAILY 11/20/18 01/13/19 History Apixaban [Eliquis] 2.5 mg PO BID 01/13/19 01/13/19 History Dicyclomine [Bentyl] 40 mg PO HS 01/13/19 01/13/19 History LORazepam [Ativan] 0.5 mg PO Q6H PRN 01/13/19 01/13/19 History Lipase/Protease/Amylase [Carol Dr 48,000 units PO AC-TID 01/13/19 01/13/19 History 24,000 Units Capsule] Lisinopril [Zestril] 20 mg PO DAILY 01/13/19 01/13/19 History Tiotropium [place] [Spiriva 1 puff INHALATION RT-DAILY 01/13/19 01/13/19 History Respimat] Allergies Allergy/AdvReac Type Severity Reaction Status Date / Time No Known Allergies Allergy Verified 01/13/19 22:05 Physical Exam Vitals: Vital Signs Temp Pulse Pulse Resp BP BP Pulse Ox 01/14/19 12:00 91 19 146/106 98 01/14/19 08:29 60 01/14/19 08:16 60 01/14/19 08:10 97.6 F 70 18 144/107 99 01/14/19 04:39 52 L 14 142/78 95 01/14/19 02:32 97.9 F 70 15 161/95 95 01/14/19 00:40 74 18 131/101 96 01/13/19 22:46 80 16 129/93 98 01/13/19 21:52 20 01/13/19 20:40 97.8 F 87 18 127/101 98 Intake and Output 01/14/19 01/14/19 01/14/19 06:59 14:59 22:59 Intake Total 480 Balance 480 Intake: Oral 480 Other: Voiding Method Toilet Urinal # Voids 1 1 Weight 125.6 kg Gen: This is a obese 67-year-old male. He is sitting in a recliner and appears to be comfortable and in no acute distress. HEENT: Head is atraumatic, normocephalic. Pupils equal, round. Sclerae is anicte marlen. NECK: Supple. No JVD. No lymphadenopathy. No thyromegaly. LUNGS: Clear to auscultation. No wheezes or rhonchi. No intercostal retractions. HEART: Irregular rate and rhythm. Systolic murmur. ABDOMEN: Soft. Bowel sounds are present. No masses. No tenderness. EXTREMITIES: 1+ bilateral pedal edema. No calf tenderness. Dorsalis pedis +1 bilaterally. Patient has large hematoma to the posterior right thigh. NEUROLOGICAL: Patient is awake, alert and oriented x3. Cranial nerves 2 through 12 are grossly intact. Results 01/13/19 21:10 01/13/19 21:10 Cardiac Enzymes 01/13/19 01/13/19 01/14/19 Range/Units 21:10 21:10 03:30 AST 23 (17-59) U/L Troponin I <0.012 <0.012 (0.000-0.034) ng/mL 01/14/19 Range/Units 08:22 AST (17-59) U/L Troponin I <0.012 (0.000-0.034) ng/mL Coagulation 01/13/19 Range/Units 21:10 PT 11.1 (9.0-12.0) sec APTT 22.8 (22.0-30.0) sec Lipids 01/14/19 Range/Units 03:30 Triglycerides 213 H (<150) mg/dL Cholesterol 130 (<200) mg/dL HDL Cholesterol 40 (40-60) mg/dL CBC 01/13/19 Range/Units 21:10 WBC 3.7 L (3.8-10.6) k/uL RBC 3.61 L (4.30-5.90) m/uL Hgb 11.9 L D (13.0-17.5) gm/dL Hct 36.7 L (39.0-53.0) % Plt Count 75 L (150-450) k/uL Comprehensive Metabolic Panel 01/13/19 Range/Units 21:10 Sodium 140 (137-145) mmol/L Potassium 3.4 L (3.5-5.1) mmol/L Chloride 107 (98-107) mmol/L Carbon Dioxide 24 (22-30) mmol/L BUN 23 H (9-20) mg/dL Creatinine 0.80 (0.66-1.25) mg/dL Glucose 162 H (74-99) mg/dL Calcium 8.4 (8.4-10.2) mg/dL AST 23 (17-59) U/L ALT 36 (21-72) U/L Alkaline Phosphatase 73 (38-126) U/L Total Protein 5.6 L (6.3-8.2) g/dL Albumin 3.5 (3.5-5.0) g/dL Current Medications Generic Name Dose Route Start Last Admin Trade Name Freq PRN Reason Stop Dose Admin Acyclovir 400 mg 01/14/19 09:00 01/14/19 08:30 Zovirax PO 400 mg BID EUGENIA Administration Lipase/Protease/Amylase 8 each 01/14/19 07:30 01/14/19 11:[address] 5,000 Unit Capsule PO 8 each AC-TID EUGENIA Administration Apixaban 2.5 mg 01/14/19 09:00 01/14/19 08:32 Eliquis PO 2.5 mg BID EUGENIA Administration Atorvastatin Calcium 10 mg 01/14/19 09:00 01/14/19 08:32 Lipitor PO 10 mg DAILY EUGENIA Administration Budesonide/Formoterol Fumarate 2 puff 01/14/19 08:00 01/14/19 08:13 Symbicort 160-4.5 Mcg Inhaler INHALATION 2 puff RT-BID EUGENIA Administration Bupropion HCl 300 mg 01/14/19 09:00 01/14/19 08:33 Wellbutrin PO 300 mg DAILY EUGENIA Administration Carvedilol 3.125 mg 01/14/19 07:30 01/14/19 06:45 Coreg PO 3.125 mg BID-W/MEALS EUGENIA Administration Dexamethasone 40 mg 01/17/19 09:00 Hexadrol PO Arora@0900 EUGENIA Dicyclomine HCl 40 mg 01/14/19 21:00 Bentyl PO HS EUGENIA Folic Acid 1 mg 01/14/19 09:00 01/14/19 08:32 Folic Acid PO 1 mg DAILY EUGENIA Administration Sodium Chloride 1,000 mls @ 20 mls/hr 01/13/19 23:15 01/14/19 00:11 Saline 0.9% IV 20 mls/hr .Q24H EUGENIA Administration Insulin Aspart 0 unit 01/14/19 07:30 01/14/19 11:50 Novolog SQ Not Given ACHS [facility] Protocol Ipratropium [place] 0.5 mg 01/14/19 08:00 01/14/19 11:48 Atrovent Nebulized INHALATION Not Given RT-QID [facility] Lisinopril 20 mg 01/14/19 09:00 01/14/19 08:33 Zestril PO 20 mg DAILY EUGENIA Administration Lorazepam 0.5 mg 01/13/19 23:03 01/14/19 02:47 Ativan PO 0.5 mg Q6H PRN Administration Agitation Metformin HCl 1,000 mg 01/14/19 09:00 01/14/19 08:33 Glucophage PO 1,000 mg BID EUGENIA Administration Pantoprazole Sodium 40 mg 01/14/19 09:00 01/14/19 08:32 Protonix PO 40 mg DAILY EUGENIA Administration Quetiapine Fumarate 25 mg 01/14/19 21:00 Seroquel PO HS EUGENIA Intake and Output 01/14/19 01/14/19 01/14/19 06:59 14:59 22:59 Intake Total 480 Balance 480 Intake: Oral 480 Other: Voiding Method Toilet Urinal # Voids 1 1 Weight 125.6 kg 01/13/19 21:10 01/13/19 21:10 EKG Interpretations (text) EKG shows atrial fibrillation with a controlled ventricular Assessment and Plan Plan: Assessment and Plan: 1. Paroxysmal atrial fibrillation, rate under good control. On Eliquis 2.5 mg one tablet by mouth twice a day 2. TIA, symptoms completely resolved within 30 minutes . 3. Fall with gait and balance disturbance and history of normal pressure hydrocephalus. 4. Acute kidney injury and dehydration. 5. Hypertension currently episodes of hypotension. 6. Hyperlipidemia. 7. Diabetes mellitus type 2. 8. COPD. 9. Obstructive sleep apnea on BiPAP. 10. Recent diagnosis of multiple myeloma on chemotherapy at [facility]. 11. Bicytopenia with thrombocytopenia and anemia most likely related to multiple myeloma and chemotherapy. 12 history of hematoma to the right thigh acquiring a blood transfusion in November of this year. Anticoagulation was resumed by cardiology in December. Plan We will increase the patient's dose of Eliquis 5 mg one tablet by mouth twice a day, per the guidelines. He may be able to be discharged home from our perspective. We will make him a follow-up appointment with Dr. Crain in the office post discharge. DNP note has been reviewed, I agree with a documented findings and plan of care. Patient was seen and examined.
[2019-01-14] MEDS ORDERED: QUEtiapine 25 MG TAB PO SCH (21:00)
[2019-01-14] MEDS ORDERED: DICYCLOMINE 20 MG TAB PO SCH (21:00)
[2019-01-17] MEDS ORDERED: DEXAMETHASONE 4 MG TAB PO SCH (09:00)
--- NOTE | 2019-01-25 01:32 | P.HPIM ---
History of Present Illness this is COMBINED H&P and DISCHARGE SUMMARY Diagnoses: Transient like weakness and slurred speech, concerning for TIA. 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 HEENT: No recent visual problems or hearing problems. Denied any sore throat. CARDIOVASCULAR: No orthopnea, PND, no palpitations, no syncope. PULMONARY: No shortness of breath, no cough, no hemoptysis. GASTROINTESTINAL: No diarrhea, no nausea, no vomiting, no abdominal pain. Normoactive bowel sounds. NEUROLOGICAL: No headaches, no weakness, no numbness. HEMATOLOGICAL: Denies any bleeding or petechiae. GENITOURINARY: Denies any burning micturition, frequency, or urgency. MUSCULOSKELETAL/RHEUMATOLOGICAL: Denies any joint pain, swelling, or any muscle pain. ENDOCRINE: Denies any polyuria or polydipsia. 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 macular degeneration, diabetic neuropathy. Presents with leg weakness and slurred speech. Patient states that yesterday for about 20 minutes he had weakness in his right leg and slurred speech, after that his back to his usual state. Patient's follow-up with Dr. Mariscal his oncologist, he got chemotherapy a few days ago and he is supposed to get another dose today but it was missed because he is in the hospital. Also his follow-up with his neurologist for history of cognitive impairment which is improved, he saw his neurologist about 2 days prior to hospitalization. Vitas looks stable. Labs showing mild leukopenia 3.7, hemoglobin 11.9, platelets 75. Potassium 3.4, sodium 140, creatinine 0.8, liver enzymes not elevated. Troponins are negative. EKG showing atrial fibrillation at 77, old inferior infarct. Chest x-ray showing no acute process. Doppler shows no evidence of DVT in the left leg. Patient has been evaluated by neurologist and cleared him for discharge and follow-up with his neurologist as an outpatient. prior to discharge he is been evaluated by highway administrative engineer and is started on eliquis at 5 mg BID (increased from 2.5 mg BID dose) and pt is got cleared for discharge by both pulmonary and cardiology teams Patient back to his baseline with no other new symptoms. And examination does not show any focality Problems and management plan were discussed with the patient and he verbalized understanding and acceptance Patient was found stable and can be discharged home however he needs follow-up as an outpatient. Patient was instructed to follow up with his PCP and the neurologist in one week and patient without bedside agree with this recommendation and state they will call and make her on appointments Gen: patient is a AAOx3, no distress CVS: S1-S2, RRR, no murmur Lungs: B/L CTA, no wheezing Abdomen: soft, no distention, no tenderness, positive bowel sounds Extremity: no leg edema or induration Time spent more than 35 minutes this is a pleasant 68 years old male who presents with cause of possible TIA. Continue with the neuro check, neurological evaluation. Labs and medication were reviewed.. Continue same treatment. Continue with symptomatic treatment. Resume home medication. Monitor lytes and vitals. DVT and GI prophylaxis. Further recommendations of the clinical course of the patient DVT prophylaxis: Subcutaneous heparin GI Prophylaxis: Pepcid PT/OT: Pending Prognosis is guarded Review of Systems CONSTITUTIONAL: No fever, no malaise, no fatigue. HEENT: No recent visual problems or hearing problems. Denied any sore throat. CARDIOVASCULAR: No orthopnea, PND, no palpitations, no syncope. PULMONARY: No shortness of breath, no cough, no hemoptysis. GASTROINTESTINAL: No diarrhea, no nausea, no vomiting, no abdominal pain. Normoactive bowel sounds. NEUROLOGICAL: No headaches, no weakness, no numbness. HEMATOLOGICAL: Denies any bleeding or petechiae. GENITOURINARY: Denies any burning micturition, frequency, or urgency. MUSCULOSKELETAL/RHEUMATOLOGICAL: Denies any joint pain, swelling, or any muscle pain. ENDOCRINE: Denies any polyuria or polydipsia. Past Medical History Past Medical History: Atrial Fibrillation, Asthma, COPD, Diabetes Mellitus, Deep Vein Thrombosis (DVT), Hypertension, Pneumonia Additional Past Medical History / Comment(s): Pt recently seen in [facility] ER on 09/25/18 for low hgb, R lower back hematoma, auditory and visual hallucinations, encephalopathy and was transferred to [facility]. At [facility] pt was diagnosed with multiple myeloma stage III with bone lesions (bilateral hips/femurs and spine), cognitive deficit thought d/t cancer. Pt had aspiration pneumonia while there and was intubated/vented. He was septic. He also had falls. Other diagnosis while at [facility] include acute renal failure, anemia, bilateral lower extremity DVTs, spleenomegaly. He was started on chemotherapy. Other hx: Hydrocephalus with MEDICAL OFFICE ASSISTANT INSTRUCTOR shunt, NIDDM type II, neuropathy in one great toe, ALKA with Cpap use, past hospitalization for bilateral cellulitis, bronchitis, macular degeneration bilaterally and is legally blind L eye, SUN'AQ bilaterally-wears enhancers, pt has lost 30# since 06/2018. 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 Past Anesthesia/Blood Transfusion Reactions: No Reported Reaction Additional Past Anesthesia/Blood Transfusion Reaction / Comment(s): Pt has received blood without reaction. Date of Last Stent Placement:: 2008 in [facility] Past Psychological History: Depression Additional Psychological History / Comment(s): Pt resides with his spouse. He recently had a lengthy hospitalization at [facility]. H He is receiving [facility]-including speech/OT/PT. He has had falls. He is walking with assistance with a walker Spouse states pt has some cognitive deficits d/t cancer which was recently diagnosed. Spouse is pt's DPOA. Smoking Status: Former smoker Past Alcohol Use History: Rare Additional Past Alcohol Use History / Comment(s): Pt started smoking in 1965 and quit in 2005. Past Drug Use History: None Reported Additional Drug Use History / Comment(s): social alcohol use - Past Family History Father Additional Family Medical History / Comment(s): Father had NPH with a MEDICAL OFFICE ASSISTANT INSTRUCTOR shunt. He lived to be 84 yrs old. Mother Family Medical History: Deep Vein Thrombosis (DVT) Additional Family Medical History / Comment(s): Mother at the age of 62- suspect d/t DVTs. Medications and Allergies Home Medications Medication Instructions Recorded Confirmed Type Lovastatin [Mevacor] 20 mg PO DAILY 09/25/18 01/18/19 History metFORMIN HCL [Glucophage] 1,000 mg PO BID 09/25/18 01/18/19 History Acyclovir [Zovirax] 400 mg PO BID 11/20/18 01/18/19 History Budesonide-Formot 160-4.5 Mcg 2 puff INHALATION RT-BID 11/20/18 01/18/19 History [Symbicort 160-4.5 Mcg Inhaler] Carvedilol [Coreg] 3.125 mg PO BID 11/20/18 01/18/19 History Dexamethasone [Decadron] 40 mg PO VALVERDE 11/20/18 01/18/19 History Folic Acid 1 mg PO DAILY 11/20/18 01/18/19 History Omeprazole [PriLOSEC] 20 mg PO DAILY 11/20/18 01/18/19 History QUEtiapine FUMARATE [SEROquel] 25 mg PO HS 11/20/18 01/18/19 History buPROPion [Wellbutrin] 300 mg PO DAILY 11/20/18 01/18/19 History Dicyclomine [Bentyl] 40 mg PO HS 01/13/19 01/18/19 History LORazepam [Ativan] 0.5 mg PO Q6H PRN 01/13/19 01/18/19 History Lipase/Protease/Amylase [Creon Dr 48,000 units PO AC-TID 01/13/19 01/18/19 History 24,000 Units Capsule] Lisinopril [Zestril] 20 mg PO DAILY 01/13/19 01/18/19 History Tiotropium [place] [Spiriva 1 puff INHALATION RT-DAILY 01/13/19 01/18/19 History Respimat] Apixaban [Eliquis] 5 mg PO BID #0 tab 01/19/19 Rx Allergies Allergy/AdvReac Type Severity Reaction Status Date / Time No Known Allergies Allergy Verified 01/18/19 10:58 Physical Exam Vitals: Vital Signs Temp Pulse Pulse Resp BP BP Pulse Ox 01/14/19 12:00 91 19 146/106 98 01/14/19 08:29 60 01/14/19 08:16 60 01/14/19 08:10 97.6 F 70 18 144/107 99 01/14/19 04:39 52 L 14 142/78 95 01/14/19 02:32 97.9 F 70 15 161/95 95 01/14/19 00:40 74 18 131/101 96 01/13/19 22:46 80 16 129/93 98 01/13/19 21:52 20 01/13/19 20:40 97.8 F 87 18 127/101 98 Intake and Output 01/13/19 01/14/19 01/14/19 22:59 06:59 14:59 Intake Total 240 Balance 240 Intake: Oral 240 Other: Voiding Method Toilet Urinal # Voids 1 1 Weight 117.934 kg 125.6 kg GENERAL: The patient is alert and oriented x3, not in any acute distress. Well developed, well nourished. HEENT: Pupils are round and equally reacting to light. EOMI. No scleral icterus. No conjunctival pallor. Normocephalic, atraumatic. No pharyngeal erythema. No thyromegaly. CARDIOVASCULAR: S1 and S2 present. No murmurs, rubs, or gallops. PULMONARY: Chest is clear to auscultation, no wheezing or crackles. ABDOMEN: Soft, nontender, nondistended, normoactive bowel sounds. No palpable organomegaly. MUSCULOSKELETAL: No joint swelling or deformity. EXTREMITIES: No cyanosis, clubbing, or pedal edema. NEUROLOGICAL: Gross neurological examination did not reveal any focal deficits. SKIN: No rashes. Results CBC & Chem 7: 01/13/19 21:10 01/13/19 21:10 Labs: Abnormal Lab Results - Last 24 Hours (Table) 01/13/19 01/13/19 01/13/19 Range/Units 21:10 21:10 21:10 WBC 3.7 L (3.8-10.6) k/uL RBC 3.61 L (4.30-5.90) m/uL Hgb 11.9 L D (13.0-17.5) gm/dL Hct 36.7 L (39.0-53.0) % MCV 101.8 H (80.0-100.0) fL RDW 17.3 H (11.5-15.5) % Plt Count 75 L (150-450) k/uL Lymphocytes # 0.4 L (1.0-4.8) k/uL D-Dimer 1.00 H (<0.60) mg/L FEU Potassium 3.4 L (3.5-5.1) mmol/L BUN 23 H (9-20) mg/dL Glucose 162 H (74-99) mg/dL POC Glucose (mg/dL) (75-99) mg/dL Creatine Kinase 20 L (55-170) U/L Total Protein 5.6 L (6.3-8.2) g/dL Triglycerides (<150) mg/dL 01/14/19 01/14/19 01/14/19 Range/Units 03:30 05:57 11:20 WBC (3.8-10.6) k/uL RBC (4.30-5.90) m/uL Hgb (13.0-17.5) gm/dL Hct (39.0-53.0) % MCV (80.0-100.0) fL RDW (11.5-15.5) % Plt Count (150-450) k/uL Lymphocytes # (1.0-4.8) k/uL D-Dimer (<0.60) mg/L FEU Potassium (3.5-5.1) mmol/L BUN (9-20) mg/dL Glucose (74-99) mg/dL POC Glucose (mg/dL) 119 H 112 H (75-99) mg/dL Creatine Kinase (55-170) U/L Total Protein (6.3-8.2) g/dL Triglycerides 213 H (<150) mg/dL Thrombosis Risk Factor Assmnt - Choose All That Apply Any of the Below Risk Factors Present?: Yes Each Factor Represents 1 point: Abnormal pulmonary function (COPD), Obesity (BMI >25), Swollen legs (current) Each Risk Factor Represents 2 Points: Age 61-74 years, Malignancy Each Risk Factor Represents 3 Points: Family history of DVT/PE Other congenital or acquired thrombophilia - If yes, enter type in comment: No Thrombosis Risk Factor Assessment Total Risk Factor Score: 10 Thrombosis Risk Factor Assessment Level: High Risk
== END 2019-01-14 16:20 | disposition home or self-care (01) ==
LOC: EC 20:34 → 3SCARD 23:05
PROVIDERS: ADMIT Internal Medicine; ATTEND Internal Medicine
DX: R47.1 Dysarthria and anarthria (principal); R53.1 Weakness; C90.00 Multiple myeloma not having achieved remission; Z92.21 Personal history of antineoplastic chemotherapy; D61.818 Other pancytopenia; D64.9 Anemia, unspecified; J44.9 Chronic obstructive pulmonary disease, unspecified; I10 Essential (primary) hypertension; I48.2 Chronic atrial fibrillation; G47.33 Obstructive sleep apnea (adult) (pediatric); E11.40 Type 2 diabetes mellitus with diabetic neuropathy, unspecified; Z98.2 Presence of cerebrospinal fluid drainage device; H54.8 Legal blindness, as defined in USA; H91.93 Unspecified hearing loss, bilateral; H35.30 Unspecified macular degeneration; I25.2 Old myocardial infarction; D72.819 Decreased white blood cell count, unspecified; F32.9 Major depressive disorder, single episode, unspecified; M79.89 Other specified soft tissue disorders; S70.11XA Contusion of right thigh, initial encounter; I95.9 Hypotension, unspecified; N17.9 Acute kidney failure, unspecified; E86.0 Dehydration; E78.5 Hyperlipidemia, unspecified; R26.9 Unspecified abnormalities of gait and mobility; Z87.01 Personal history of pneumonia (recurrent); Z86.718 Personal history of other venous thrombosis and embolism; Z99.89 Dependence on other enabling machines and devices; Z87.09 Personal history of other diseases of the respiratory system; Z86.19 Personal history of other infectious and parasitic diseases; Z97.4 Presence of external hearing-aid; Z86.14 Personal history of Methicillin resistant Staphylococcus aureus infection; Z85.828 Personal history of other malignant neoplasm of skin; Z87.891 Personal history of nicotine dependence; Z95.5 Presence of coronary angioplasty implant and graft; Z91.81 History of falling; E66.9 Obesity, unspecified; Z68.37 Body mass index [BMI] 37.0-37.9, adult; Z79.899 Other long term (current) drug therapy; Z79.51 Long term (current) use of inhaled steroids; Z79.84 Long term (current) use of oral hypoglycemic drugs; Z79.01 Long term (current) use of anticoagulants; Z79.52 Long term (current) use of systemic steroids; Z84.89 Family history of other specified conditions; Z83.2 Family history of diseases of the blood and blood-forming organs and certain disorders involving the immune mechanism
CPT/HCPCS: 99291; 36415; 94640 ×2; 93005; 97162; 97165; 92523; 85379; 83880; 80061; 80053; 82550; 83735; 84484 ×2; 85025; 85610; 85730; 71046; 93971; 70450; G0378 ×2

== ENCOUNTER 2019-01-18 10:38 | Inpatient (IN) | payer MEDICARE ==
--- NOTE | 2019-01-18 11:20 | ED ---
General Adult HPI - General Chief complaint: Neuro Symptoms/Deficit Stated complaint: weakness Time Seen by Provider: 01/18/19 11:00 Source: patient, family, RN notes reviewed Mode of arrival: wheelchair Limitations: no limitations - History of Present Illness Initial comments: Patient is a pleasant 68-year-old male presenting to the emergency department with weakness. Onset of symptoms was 9:30 this morning. Patient has known multiple myeloma and was going for infusion. Patient had confusion and slurred speech. was also concerned there may be some mild right-sided facial droop. Patient states his right leg was dragging. Patient states his bilateral leg weakness was somewhat worse than normal. Patient does usually use a walker. Symptoms seemed to have resolved at this point. No slurred speech. No weakness. No confusion. No history of similar symptoms previously. Patient is on Eliquis. - Related Data Home Medications Medication Instructions Recorded Confirmed Lovastatin [Mevacor] 20 mg PO DAILY 09/25/18 01/18/19 metFORMIN HCL [Glucophage] 1,000 mg PO BID 09/25/18 01/18/19 Acyclovir [Zovirax] 400 mg PO BID 11/20/18 01/18/19 Budesonide-Formot 160-4.5 Mcg 2 puff INHALATION RT-BID 11/20/18 01/18/19 [Symbicort 160-4.5 Mcg Inhaler] Carvedilol [Coreg] 3.125 mg PO BID 11/20/18 01/18/19 Dexamethasone [Decadron] 40 mg PO VALVERDE 11/20/18 01/18/19 Folic Acid 1 mg PO DAILY 11/20/18 01/18/19 Omeprazole [PriLOSEC] 20 mg PO DAILY 11/20/18 01/18/19 QUEtiapine FUMARATE [SEROquel] 25 mg PO HS 11/20/18 01/18/19 buPROPion [Wellbutrin] 300 mg PO DAILY 11/20/18 01/18/19 Dicyclomine [Bentyl] 40 mg PO HS 01/13/19 01/18/19 LORazepam [Ativan] 0.5 mg PO Q6H PRN 01/13/19 01/18/19 Lipase/Protease/Amylase [Carol Piedra 48,000 units PO AC-TID 01/13/19 01/18/19 24,000 Units Capsule] Lisinopril [Zestril] 20 mg PO DAILY 01/13/19 01/18/19 Tiotropium [place] [Spiriva 1 puff INHALATION RT-DAILY 01/13/19 01/18/19 Respimat] Previous Rx's Medication Instructions Recorded Apixaban [Eliquis] 5 mg PO BID #60 tablet 01/14/19 Allergies Allergy/AdvReac Type Severity Reaction Status Date / Time No Known Allergies Allergy Verified 01/18/19 10:58 Review of Systems ROS Statement: Those systems with pertinent positive or pertinent negative responses have been documented in the HPI. ROS Other: All systems not noted in ROS Statement are negative. Constitutional: Denies: fever Eyes: Denies: eye pain ENT: Denies: ear pain Respiratory: Denies: cough Cardiovascular: Denies: chest pain Endocrine: Denies: fatigue Gastrointestinal: Denies: abdominal pain Genitourinary: Denies: dysuria Musculoskeletal: Denies: back pain Skin: Denies: rash Neurological: Reports: weakness, confusion. Denies: headache Past Medical History Past Medical History: Atrial Fibrillation, Asthma, COPD, Diabetes Mellitus, Deep Vein Thrombosis (DVT), Hypertension, Pneumonia Additional Past Medical History / Comment(s): Pt recently seen in [facility] ER on 09/25/18 for low hgb, R lower back hematoma, auditory and visual hallucinations, encephalopathy and was transferred to [facility]. At [facility] pt was diagnosed with multiple myeloma stage III with bone lesions (bilateral hips/femurs and spine), cognitive deficit thought d/t cancer. Pt had aspiration pneumonia while there and was intubated/vented. He was septic. He also had falls. Other diagnosis while at [facility] include acute renal failure, anemia, bilateral lower extremity DVTs, spleenomegaly. He was started on chemotherapy. 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 History of Any Multi-Drug Resistant Organisms: MRSA Date of last positivie culture/infection: 2005 MDRO Source:: face Past Surgical History: Heart Catheterization With Stent Additional Past Surgical History / Comment(s): Bone marrow biopsy, SET UP MECH[employer]IC CR[employer] ASSEMBL[employer] MACHINE shunt, MOHs surgery for deep basal cell skin cancer on face with L side fac post surgical infection, colonoscopy. Past Anesthesia/Blood Transfusion Reactions: No Reported Reaction Additional Past Anesthesia/Blood Transfusion Reaction / Comment(s): Pt has received blood without reaction. Date of Last Stent Placement:: 2008 in [facility] Past Psychological History: Depression Smoking Status: Former smoker Past Alcohol Use History: Rare Past Drug Use History: None Reported - Past Family History Father Additional Family Medical History / Comment(s): Father had NPH with a SET UP MECHANIC CROWN ASSEMBLY MACHINE shunt. He lived to be 84 yrs old. Mother Family Medical History: Deep Vein Thrombosis (DVT) Additional Family Medical History / Comment(s): Mother at the age of 62- suspect d/t DVTs. General Exam Limitations: no limitations General appearance: alert, in no apparent distress Head exam: Present: atraumatic, normocephalic Eye exam: Present: normal appearance, PERRL, EOMI. Absent: nystagmus ENT exam: Present: normal oropharynx Neck exam: Present: normal inspection Respiratory exam: Present: normal lung sounds bilaterally Cardiovascular Exam: Present: irregular rhythm, systolic murmur GI/Abdominal exam: Present: soft. Absent: tenderness Extremities exam: Present: normal inspection. Absent: pedal edema, calf tenderness Neurological exam: Present: alert, oriented X3, CN II-XII intact Expanded Neurological exam: Present: protecting the airway Patient oriented to: Present: person, place, time Speech: Present: fluid speech Cranial nerves: EOM's Intact: Normal, Facial Sensation: Normal Sensory exam: Upper Extremity Light Touch: Normal, Lower Extremity Light Touch: Normal Motor strength exam: RUE: 5, LUE: 5, RLE: 4, LLE: 4 Eye Response: (4) open spontaneously Motor Response: (6) obeys commands Verbal Response: (5) oriented Psychiatric exam: Present: normal affect, normal mood Skin exam: Present: normal color Course Vital Signs 01/18/19 01/18/19 10:43 10:55 Temperature 98.0 F 98 F Pulse Rate 67 68 Respiratory 18 18 Rate Blood Pressure 124/79 123/83 O2 Sat by Pulse 97 98 Oximetry - Reevaluation(s) Reevaluation #1: 01/18/19 11:17 Code stroke as already been called. EKG Findings - EKG Comments: EKG Findings:: A. fib with rate of 84. QRS 92. QT 402. QTC 475. Left axis. Incomplete right bundle-branch block. Septal Q waves. Inferior Q waves. No acute ST change. Medical Decision Making - Medical Decision Making Patient reevaluated and resting comfortably in bed. Patient remains symptom- free. Patient and family updated on results and plan. Dr. Walsh has been paged for admission for Dr. Escobar. - Lab Data Result diagrams: 01/18/19 11:03 01/18/19 11:03 Lab Results 01/18/19 01/18/19 01/18/19 Range/Units 11:03 11:03 11:03 WBC 3.8 (3.8-10.6) k/uL RBC 3.61 L (4.30-5.90) m/uL Hgb 12.2 L (13.0-17.5) gm/dL Hct 35.9 L (39.0-53.0) % MCV 99.5 (80.0-100.0) fL MCH 33.8 (25.0-35.0) pg MCHC 33.9 (31.0-37.0) g/dL RDW 16.5 H (11.5-15.5) % Plt Count 87 L (150-450) k/uL Neutrophils % 79 % Lymphocytes % 10 % Monocytes % 7 % Eosinophils % 1 % Basophils % 0 % Neutrophils # 3.0 (1.3-7.7) k/uL Lymphocytes # 0.4 L (1.0-4.8) k/uL Monocytes # 0.3 (0-1.0) k/uL Eosinophils # 0.1 (0-0.7) k/uL Basophils # 0.0 (0-0.2) k/uL Manual Slide Review Performed Poikilocytosis (manual Present Anisocytosis Slight Macrocytosis Slight PT 11.7 (9.0-12.0) sec INR 1.1 (<1.2) APTT 25.2 (22.0-30.0) sec Sodium 142 (137-145) mmol/L Potassium 3.8 (3.5-5.1) mmol/L Chloride 112 H (98-107) mmol/L Carbon Dioxide 23 (22-30) mmol/L Anion Gap 7 mmol/L BUN 20 (9-20) mg/dL Creatinine 0.87 (0.66-1.25) mg/dL Est GFR (CKD-EPI)AfAm >90 (>60 ml/min/1.73 sqM) Est GFR (CKD-EPI)NonAf 88 (>60 ml/min/1.73 sqM) Glucose 89 (74-99) mg/dL Calcium 8.6 (8.4-10.2) mg/dL Total Bilirubin 0.7 (0.2-1.3) mg/dL AST 22 (17-59) U/L ALT 32 (21-72) U/L Alkaline Phosphatase 78 (38-126) U/L Total Protein 5.6 L (6.3-8.2) g/dL Albumin 3.4 L (3.5-5.0) g/dL - Radiology Data Radiology results: report reviewed (Computed tomography scan of the brain is somewhat limited by shunt. CT angios feels no acute abnormality.), image reviewed (Chest x-ray shows no acute process.) Disposition Clinical Impression: Transient cerebral ischemia Disposition: ADMITTED IP TO THIS HOSP Is patient prescribed a controlled substance at d/c from ED?: No Referrals: Jane Escobar MD [Primary Care Provider] - 1-2 days Decision Time: 12:54
--- NOTE | 2019-01-18 11:43 | CT ---
EXAMINATION TYPE: CT brain wo con for TPA DATE OF EXAM: 01/18/2019 COMPARISON: 01/13/2019 HISTORY: bilateral leg weakness CT DLP: 1092 mGycm Automated exposure control for dose reduction was used. FINDINGS: CLOTH SPONGER shunt catheter enters from a right posterolateral approach to have its tip at the midline of the b kvng of the right lateral ventricle, unchanged in appearance compared the prior study. Low-attenuation the white matter is nonspecific but most typical remote microvascular ischemia. There is artifact along the placement of a left CLOTH SPONGER shunt peripherally which limits assessment for hemorrha ge in this region. Remaining portion of the brain demonstrates no definite acute intracranial hemorrh age. The mild panventriculomegaly pattern seen appears unchanged. The calvarium is intact. No midline shift. Mild to moderate generalized degenerative change. Intracra nial atherosclerotic changes are noted. IMPRESSION: 1. No acute intracranial hemorrhage or mass effect as visualized. Note is made there is artifact from the CLOTH SPONGER shunt catheter along the right parietal lobe which limits assessment this region for acute he morrhage. 2. Degenerative and nonspecific white matter changes most typical remote ischemia. 3. Ventriculomegaly is stable relative to the prior exam.
[2019-01-18 11:53] LABS: INR 1.1 (<1.2); Partial Thromboplastin Time 25.2 sec (22.0-30.0); Prothrombin Time 11.7 sec (9.0-12.0)
--- NOTE | 2019-01-18 11:57 | CT ---
EXAMINATION TYPE: CT angio head neck DATE OF EXAM: 01/18/2019 COMPARISON: None HISTORY: bilateral leg weakness, History of multiple myeloma and STARCH MANGLE TENDER shunt for hydrocephalus CT DLP: 679.1 mGycm CONTRAST: Performed with IV Contrast, patient injected with 50 mL of Isovue 370. Combination Contrast CTA cervical carotids and [place] CTA cervical carotids with 3-D recons truction Contrast CTA of the cervical carotids was performed 3-D reconstruction imaging obtained at a separate workstation. Right carotid system: Mild plaque is seen of the right common carotid artery. There is mild plaque a lso noted at the carotid bulb and proximal ICA. No significant diameter reduction. ECA is patent. Right vertebral artery appears unremarkable. Left carotid system: Mild plaque is seen of the left common carotid artery. There is mild plaque als o noted at the carotid bulb and proximal ICA. No significant diameter reduction. ECA is patent. Lef t vertebral artery appears unremarkable. IMPRESSION: 1. No significant diameter reduction to account for the patient's symptoms. CTA [place] with 3-D reconstruction Contrast CTA of the [place] was performed 3-D reconstruction imaging obtained at a separate workstation. Vertebrobasilar system as well as intracranial portions of the internal carotid arteries and their ma matilde tributaries are patent. I do not see evidence for sizable aneurysm or vascular malformation. Pl ease note MRI provides greater sensitivity and specificity. Visualized brain appears grossly unremar kable. IMPRESSION: 1. No significant abnormality.
[2019-01-18 11:58] LABS: ALT 32 U/L (21-72); AST 22 U/L (17-59); African American GFR (CKD) >90 (>60 ml/min/1.73 sqM); Albumin 3.4 g/dL (3.5-5.0); Alkaline Phosphatase 78 U/L (38-126); Anion Gap 7 mmol/L; Blood Urea Nitrogen 20 mg/dL (9-20); Calcium 8.6 mg/dL (8.4-10.2); Carbon Dioxide 23 mmol/L (22-30); Chloride 112 mmol/L (98-107); Glucose 89 mg/dL (74-99); Non-African American GFR(CKD) 88 (>60 ml/min/1.73 sqM); Potassium 3.8 mmol/L (3.5-5.1); Sodium 142 mmol/L (137-145); Total Bilirubin 0.7 mg/dL (0.2-1.3); Total Protein 5.6 g/dL (6.3-8.2)
[2019-01-18 12:07] LABS: Anisocytosis Slight; Basophils % (A) 0 %; Eosinophils # (A) 0.1 k/uL (0-0.7); Eosinophils % (A) 1 %; HCT 35.9 % (39.0-53.0); HGB 12.2 gm/dL (13.0-17.5); Lymphocytes # (A) 0.4 k/uL (1.0-4.8); Lymphocytes % (A) 10 %; MCH 33.8 pg (25.0-35.0); MCHC 33.9 g/dL (31.0-37.0); MCV 99.5 fL (80.0-100.0); Macrocytosis Slight; Mean Platelet Volume 8.6; Monocytes # (A) 0.3 k/uL (0-1.0); Monocytes % (A) 7 %; Neutrophils % (A) 79 %; RBC 3.61 m/uL (4.30-5.90); RDW 16.5 % (11.5-15.5); WBC 3.8 k/uL (3.8-10.6)
[2019-01-18 12:15] LABS: Platelet Count 87 k/uL (150-450)
--- NOTE | 2019-01-18 12:15 | XR ---
EXAMINATION TYPE: XR chest 2V DATE OF EXAM: 01/18/2019 COMPARISON: January 13, 2019 HISTORY: Shortness of breath TECHNIQUE: Frontal and lateral views of the chest are obtained. FINDINGS: Scattered senescent parenchymal changes noted. Hyperinflation compatible with COPD. No evidence for infiltrate. No evidence for atelectasis. Heart size is stable. Mediastinal structures are stable and grossly unremarkable. No evidence for hilar prominence. Degenerative changes dorsal spine. IMPRESSION: 1. No evidence for acute pulmonary disease.
[2019-01-18 12:17] LABS: Poikilocytosis (M) Present
[2019-01-18] MEDS ORDERED: ASPIRIN 325 MG TAB PO STA (12:55)
[2019-01-18] MEDS: SODIUM CHLORIDE 0.9% 1,000 ML IV SCH ×2 (13:18→22:30)
[2019-01-18 17:03] VITALS: RESP 16
[2019-01-18 17:33] LABS: Glucose,Whole Blood 141 mg/dL (75-99)
[2019-01-18] MEDS ORDERED: LORazepam 0.5 MG TAB PO PRN (17:40)
--- NOTE | 2019-01-18 19:06 | P.CNNES ---
History of Present Illness Consult date: 01/18/19 Reason for Consult: TIA Chief complaint: Confusion, slurred speech, mild R-sided facial droop, R leg dragging History of Present Illness: REFERRING PHYSICIAN: Dr. Alexei Acuña HISTORY OF PRESENT ILLNESS: Thank you for allowing me to evaluate Mr. Gary Tristan. Of note, I evaluated this patient on 01/14/19 when patient came to [facility] for similar episode. Mr. Tristan is a 68-year-old right-handed male with past medical history of atrial fibrillation on the list, asthma, COPD, diabetes, hypertension, NPH status post AUDIO VISUAL DIRECTOR shunt placement, recent diagnosis of multiple myeloma on chemotherapy, macular degeneration bilaterally (blind in left eye), bilateral LE DVTs, who presents with dysarthria and dragging of his left leg. is at bedside. The patient was on his way to get his chemotherapy for multiple myeloma when he became increasingly weak. Patient could not walk, and patient felt that his modalities were also weaker than previously. Patient's also noted worsening right facial weakness. From my previous note: Patient states that last night around 7 PM, patient had finishes dinner when history having slurred speech. 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 Patient had to step down as patient had NPH in the due to AUDIO VISUAL DIRECTOR shunt. Patient has improved significantly in terms of his mental status, his walk, and his urinary symptoms. Patient's symptoms of dysarthria and left leg dragging have resolved. Patient and state that patient has been compliant with all his medications. Patient had an MRI brain done a couple months ago, and incidental finding of any old small stroke was found on the right side of the brain. PAST MEDICAL HISTORY: atrial fibrillation on the list, asthma, COPD, diabetes, hypertension, NPH status post AUDIO VISUAL DIRECTOR shunt placement, recent diagnosis of multiple myeloma on chem otherapy, macular degeneration bilaterally (blind in left eye), bilateral LE DVTs, basal cell skin cancer PAST SURGICAL HISTORY: Heart catheterization with stent, AUDIO VISUAL DIRECTOR shunt HOME MEDICATIONS: Lovastatin 20 once daily, metformin 1000 mg twice a day, diplopia related wounds daily, Seroquel 25 mg daily at bedtime, omeprazole 20 mg daily, folic acid 1 mg daily, dexamethasone 40 mg, Coreg 3.125 g twice a day, Symbicort, acyclovir 400 mg by mouth twice a day, history, lisinopril 20 mg daily, eliquis 2.5 mg by mouth twice a day Ativan when necessary ALLERGIES: NO KNOWN DRUG ALLERGIES SOCIAL HISTORY: Former smoker FAMILY HISTORY: Father had NPH with a AUDIO VISUAL DIRECTOR shunt. Mother suspected to be secondary to the. REVIEW OF SYSTEMS: The 14 systems are reviewed and no additional points are identified compared to the review of systems documented history and physical PHYSICAL EXAMINATION: VITAL SIGNS: Temperature 98.2 pulse rate 87 respiratory rate 20 blood pressure 137/97 SATURATION 98% on room air GEN.: NAD, pleasant and cooperative HEENT: NCAT, sclera without icterus NECK: Supple SKIN AND EXTREMITIES: Warm to touch, no edema NEURO: MENTAL STATUS: Patient alert and oriented to self, place,. Able to name the cur rent president. Speech fluent, able to name and repeat, following all commands readily. No right and left disorientation CRANIAL NERVES II THROUGH XII: II: Pupils are equal and reactive to light sy mmetrically. Visual rachel are intact. III, IV, : Mild right eye ptosis. Extraocular movements full. No nystagmus. V: Facial sensation intact from V1-3. VII. mild nasolabial fold flattening on the left. VIII: Hearing intact to finger rub bilaterally. IX, X: Symmetric palate elevation. XII: Shoulder shrug intact. XII: Tongue midline without fasciculation or atrophy. MOTOR: Normal bulk/tone. No pronator drift or tremor. Strength is 5/5 throughout all 4 extremities. SENSORY: Intact to light touch, temperature in all 4 extremities. Romberg is negative. REFLEXES: 1+ throughout. Toes are downgoing. COORDINATION: Finger to nose intact. No dysmetria. GAIT: Slightly wide-based gait and cautious, but able to walk without a walker on his own. DIAGNOSTIC TESTING: LABORATORY: 01/18/19: WBC 3.8 hemoglobin 12.2 platelets 87 PT 11.7 INR 1.1 sodium 142 potassium 3.8 chloride 112 BUN 29 is 0.87 glucose 89 AST 5.6 on Coumadin for 01/13/19: WBC 3.7 hemoglobin 11.9 weight at 75 and PT 11.1 INR 1.0 sodium 140 potassium 3.4 chloride 107 bicarb 24 BUN 23 creatinine 0.8 glucose 162 AST 23 ALT 36 troponins <0.012 total cholesterol 138 LDL 47 HDL 40 triglycerides 213 IMAGING: CT head without contrast 01/18/2019: No acute intracranial hemorrhage or mass effect. AUDIO VISUAL DIRECTOR shunt catheter along the right parietal lobe. Degenerative and nonspecific white matter change most typical remote ischemia. Ventriculomegaly is stable relative to the prior exam. CT angiogram head and neck with and without contrast 01/18/2019: No significant diameter reduction to account for the patient's symptoms. No significant abnormality. CT head without contrast 01/12/2019: Mild periventricular white matter ischemic Changes with age-related atrophy ASSESSMENT: Mr. Tristan is a 68-year-old right-handed male with past medical history of atrial fibrillation on the list, asthma, COPD, diabetes, hypertension, NPH status post AUDIO VISUAL DIRECTOR shunt placement, recent diagnosis of multiple myeloma on chemotherapy, macular degeneration bilaterally (blind in left eye), bilateral LE DVTs, who presents with dysarthria, worsening right facial drag weakness and c omplete weakness of his legs. patient was recently admitted at [facility] for similar symptoms, and this time, patient appears to have more generalized weakness and focal weakness. Patient had a recent MRI brainshowed a small stroke on the right side of his hemisphere. We do not have his imaging record. However, patient with multiple risk factors for stroke such as atrial fibrillation and multiple myeloma. Patient is already on Eliquis 2.5 mg twice a day dosing. Usual dosing for stroke prevention with liquids for patients with nonvalvular atrial fibrillation is 5 mg twice a day dosing. Unclear why the patient is on a lower dose of Eliquis. Patient should follow-up with his primary care doctor regarding possibly changing his dose of Eliquis. If primary care doctor is also unclear about the lower dose of Eliquis, patient should follow up with his neurologist sooner. Patient has an appointment with a neurologist in March. patient's was concerned that lesion is no longer a candidate for tPA as patient is on anticoagulation. Fully explained to the patient and the patient's about the importance of continuing his anticoagulation. If there is of time in the future when patient does need intervention, patient will be able to go for thrombectomy. Patient's showed understanding. Neurology will sign off at this time. Past Medical History Past Medical History: Atrial Fibrillation, Asthma, COPD, Diabetes Mellitus, Deep Vein Thrombosis (DVT), Hypertension, Pneumonia Additional Past Medical History / Comment(s): Pt recently seen in [facility] ER on 09/25/18 for low hgb, R lower back hematoma, auditory and visual hallucinations, encephalopathy and was transferred to [facility]. At [facility] pt was diagnosed with multiple myeloma stage III with bone lesions (bilateral hips/femurs and spine), cognitive deficit thought d/t cancer. Pt had aspiration pneumonia while there and was intubated/vented. He was septic. He also had falls. Other diagnosis while at [facility] include acute renal failure, anemia, bilateral lower extremity DVTs, spleenomegaly. He was started on chemotherapy. 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 History of Any Multi-Drug Resistant Organisms: MRSA Date of last positivie culture/infection: 2005 MDRO Source:: face Past Surgical History: Heart Catheterization With Stent Additional Past Surgical History / Comment(s): Bone marrow biopsy, AUDIO VISUAL DIRECTOR shunt, MOHs surgery for deep basal cell skin cancer on face with L side fac post surgical infection, colonoscopy. Past Anesthesia/Blood Transfusion Reactions: No Reported Reaction Additional Past Anesthesia/Blood Transfusion Reaction / Comment(s): Pt has received blood without reaction. Date of Last Stent Placement:: 2008 in [facility] Past Psychological History: Depression Smoking Status: Former smoker Past Alcohol Use History: Rare Past Drug Use History: None Reported - Past Family History Father Additional Family Medical History / Comment(s): Father had NPH with a AUDIO VISUAL DIRECTOR shunt. He lived to be 84 yrs old. Mother Family Medical History: Deep Vein Thrombosis (DVT) Additional Family Medical History / Comment(s): Mother at the age of 62- suspect d/t DVTs. Medications and Allergies Home Medications Medication Instructions Recorded Confirmed Type Lovastatin [Mevacor] 20 mg PO DAILY 09/25/18 01/18/19 History metFORMIN HCL [Glucophage] 1,000 mg PO BID 09/25/18 01/18/19 History Acyclovir [Zovirax] 400 mg PO BID 11/20/18 01/18/19 History Budesonide-Formot 160-4.5 Mcg 2 puff INHALATION RT-BID 11/20/18 01/18/19 History [Symbicort 160-4.5 Mcg Inhaler] Carvedilol [Coreg] 3.125 mg PO BID 11/20/18 01/18/19 History Dexamethasone [Decadron] 40 mg PO VALVERDE 11/20/18 01/18/19 History Folic Acid 1 mg PO DAILY 11/20/18 01/18/19 History Omeprazole [PriLOSEC] 20 mg PO DAILY 11/20/18 01/18/19 History QUEtiapine FUMARATE [SEROquel] 25 mg PO HS 11/20/18 01/18/19 History buPROPion [Wellbutrin] 300 mg PO DAILY 11/20/18 01/18/19 History Dicyclomine [Bentyl] 40 mg PO HS 01/13/19 01/18/19 History LORazepam [Ativan] 0.5 mg PO Q6H PRN 01/13/19 01/18/19 History Lipase/Protease/Amylase [[place] Dr 48,000 units PO AC-TID 01/13/19 01/18/19 History 24,000 Units Capsule] Lisinopril [Zestril] 20 mg PO DAILY 01/13/19 01/18/19 History Tiotropium [place] [Spiriva 1 puff INHALATION RT-DAILY 01/13/19 01/18/19 History Respimat] Apixaban [Eliquis] 5 mg PO BID #60 tablet 01/14/19 01/18/19 Rx Allergies Allergy/AdvReac Type Severity Reaction Status Date / Time No Known Allergies Allergy Verified 01/18/19 10:58 Physical Examination - Vital Signs Vital Signs: Vital Signs Temp Pulse Resp BP Pulse Ox 01/18/19 14:31 79 17 98 01/18/19 14:00 98.2 F 87 20 137/97 98 01/18/19 13:30 71 21 136/102 97 01/18/19 13:00 70 18 124/95 97 01/18/19 12:00 17 126/89 01/18/19 11:44 97 01/18/19 11:10 98 F 75 17 126/58 97 01/18/19 10:55 98 F 68 18 123/83 98 01/18/19 10:43 98.0 F 67 18 124/79 97 Intake and Output 08/05/2701/18/19 01/18/19 06:59 14:59 22:59 Other: Weight 117.934 kg Results - Laboratory Findings CBC and BMP: 01/18/19 11:03 01/18/19 11:03 Abnormal Lab Findings: Abnormal Labs 01/18/19 01/18/19 11:03 11:03 RBC 3.61 L Hgb 12.2 L Hct 35.9 L RDW 16.5 H Plt Count 87 L Lymphocytes # 0.4 L Chloride 112 H Total Protein 5.6 L Albumin 3.4 L
[2019-01-18] MEDS ORDERED: QUEtiapine 25 MG TAB PO SCH (21:00)
[2019-01-18] MEDS ORDERED: DICYCLOMINE 20 MG TAB PO SCH (21:00)
[2019-01-18] MEDS: SYMBICORT 160-4.5 MCG INHALER INHALATION SCH (21:15)
[2019-01-18] MEDS: metFORMIN 500 MG TAB PO SCH (21:15)
[2019-01-18] MEDS: ACYCLOVIR 200 MG CAP PO SCH (21:15)
[2019-01-18] MEDS: APIXABAN 5 MG TAB PO SCH (21:15)
[2019-01-18] MEDS: INSULIN ASPART (NovoLOG) 100 UNIT/ML VIAL SQ SCH (21:16)
[2019-01-18 21:18] LABS: Glucose,Whole Blood 111 mg/dL (75-99)
[2019-01-18] MEDS: CARVEDILOL 3.125 MG TAB PO SCH (21:18)
--- NOTE | 2019-01-18 22:55 | HP ---
HISTORY AND PHYSICAL DATE OF SERVICE: 01/18/2019 CHIEF COMPLAINT: Weakness. HISTORY OF PRESENT ILLNESS: This 68-year-old gentleman with a past medical history of atrial fibrillation, history of COPD, asthma, diabetes, DVT, hypertension, history of pneumonia, history of CAD stent, history of depression, being followed by Dr. Escobar in the outpatient setting was apparently going to the doctor's office for chemotherapy. The patient noted that the patient had slurring of speech and weakness of the leg and some facial droop was noted. Patient taken to [facility] and was admitted for further evaluation and treatment. The initial CAT scan and CT angio did not show acute abnormality. The patient admitted for further evaluation. Neurology evaluation in progress at this time. There is no history of fever, rigors or chills. No history of headache, loss of consciousness or seizures at this time. PAST MEDICAL HISTORY: History of multiple myeloma, history of asthma, COPD, history of atrial fibrillation, DVT, hypertension, hyperlipidemia, history of leg hematoma recently, history of CAD/stent and depression. MEDICATIONS: Home medications are: 1. Seroquel 25 mg q.h.s. 2. Ativan 0.5 mg q.6 p.r.n. 3. Bentyl 40 mg q.h.s. 4. Decadron 40 mg p.o. Friday. 5. Glucophage 1000 mg p.o. b.i.d. 6. Wellbutrin 300 mg p.o. daily. 7. Spiriva 1 puff daily. 8. Prilosec 20 mg p.o. daily. 9. Mevacor 20 mg. 10.Zestril 20 mg. 11.Creon 40,000. 12.Folic acid 1 mg. 13.Coreg 3.125 mg p.o. b.i.d. 14.Symbicort 160/4.5 two puffs b.i.d. 15.Eliquis 5 mg p.o. b.i.d. 16.Zovirax 400 mg p.o. b.i.d. ALLERGIES: None. FAMILY HISTORY: History of DVT in the family. 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 SOCIAL HISTORY: Previous history of smoking. No history of current smoking or alcohol intake. REVIEW OF SYSTEMS: ENT mentioned earlier. CARDIOVASCULAR SYSTEM: No angina. RESPIRATIONS: No cough or hemoptysis. GI no nausea or vomiting. no dysuria. NERVOUS SYSTEM: As mentioned earlier. ALLERGY/IMMUNOLOGY: No asthma or hayfever. MUSCULOSKELETAL as mentioned earlier. HEMATOLOGY/ONCOLOGY: As mentioned earlier. ENDOCRINE: History of diabetes. CONSTITUTIONAL: As mentioned earlier. DERMATOLOGY negative. RHEUMATOLOGY: Negative. PSYCHIATRIC: As mentioned earlier. PHYSICAL EXAMINATION: Alert and oriented times three. Pulse 88, blood pressure 150/90, respirations 16, temperature 98 degrees, pulse ox 98% on room air. HEENT: Conjunctivae normal. Oral mucosa moist. Neck is no jugular venous distention. No carotid bruit. No lymph node enlargement. Cardiovascular system: S1, S2 muffled. Respiration: Breath sounds diminished in the bases. Bilateral scattered rhonchi and crackles. ABDOMEN: Soft, nontender. No mass palpable. LEGS: No edema. No swelling. NERVOUS SYSTEM: Higher functions as mentioned earlier. Moves all 4 limbs. No focal motor or sensory deficits. Lymphatics: No lymph nodes palpable in the neck, axillae or groin. SKIN: No ulcer, rash or bleeding. JOINTS: No active deforming arthropathy. LABS: At this time shows WBC 3.8, hemoglobin 12.2, sodium 142, potassium 3.8. ASSESSMENT: 1. Weakness and slurring of speech of the right side, possibly left hemispheric transient ischemic attack. 2. Multiple myeloma. 3. History of atrial fibrillation. 4. History of asthma, chronic obstructive pulmonary disease. 5. Diabetes type 2. 6. History of deep vein thrombosis. 7. Hypertension. 8. History of pneumonia. 9. History of recent right leg hematoma. 10.History of coronary artery disease/ stent. 11.Depression. 12.Remote history of nicotine dependence. RECOMMENDATIONS AND DISCUSSION: In this 68-year-old gentleman who presented with multiple complex medical issues, we will monitor the patient closely, continue the current medications, management and symptomatic treatment. Otherwise, at this time, I recommend continue with antiplatelet agents and as well as home medications. DVT prophylaxis. Full neurovascular workup. The patient had a 2D echo a couple months ago, which showed ejection fraction about 55- 60 percent and multiple minimal valvular abnormalities also with moderate aortic sclerosis and moderate mitral annular calcification. We will continue to monitor. Prognosis guarded. See orders for details and further recommendations to follow. A copy of dictation being forwarded to Dr. Escobar who is the primary physician. MMODL / IJN: [id number] /
[2019-01-19 02:49] LABS: Cholesterol 131 mg/dL (<200); HDL Cholesterol 36 mg/dL (40-60); LDL Cholesterol,Calculated 58 mg/dL (0-99); Triglycerides 183 mg/dL (<150)
[2019-01-19] MEDS: CARVEDILOL 3.125 MG TAB PO SCH (06:21)
[2019-01-19 06:37] LABS: Glucose,Whole Blood 106 mg/dL (75-99)
[2019-01-19] MEDS: INSULIN ASPART (NovoLOG) 100 UNIT/ML VIAL SQ SCH (06:37)
[2019-01-19] MEDS ORDERED: LIPASE 5,000/PROTEASE 17,000/AMYLASE 24,000 PO SCH (07:30)
[2019-01-19] MEDS ORDERED: PANTOPRAZOLE 40 MG TABLET PO SCH (07:30)
[2019-01-19] MEDS ORDERED: IPRATROPIUM 0.5 MG/2.5 ML NEBU INHALATION SCH (08:00)
[2019-01-19] MEDS ORDERED: ASPIRIN 325 MG TAB PO SCH (09:00)
[2019-01-19] MEDS ORDERED: LISINOPRIL 20 MG TAB PO SCH (09:00)
[2019-01-19] MEDS ORDERED: ATORVASTATIN 10 MG TAB PO SCH (09:00)
[2019-01-19] MEDS ORDERED: FOLIC ACID 1 MG TAB PO SCH (09:00)
[2019-01-19] MEDS: APIXABAN 5 MG TAB PO SCH (09:09)
[2019-01-19] MEDS: metFORMIN 500 MG TAB PO SCH (09:09)
[2019-01-19] MEDS: ACYCLOVIR 200 MG CAP PO SCH (09:13)
--- NOTE | 2019-01-19 10:19 | P.DS ---
Providers Date of admission: 01/18/19 12:55 Attending physician: Finn Walsh Consults: 01/18/19 12:55 Consult Physician Urgent Consulting Provider: Blanca Arcos Consult Reason/Comments: tia Do you want consulting provider notified?: Yes 01/18/19 12:56 Consult Physician Urgent Consulting Provider: Peter Lamb Consult Reason/Comments: Multiple myeloma Do you want consulting provider notified?: Yes Primary care physician: [facility] Course: 68-year-old male was admitted the with the speech abnormality right facial weakness and weakness on the right side of the body. Patient symptoms are transient and patient probably has TIA involving the left middle cerebral artery to 3. Patient workup is not significant. Patient LDL is 58 patient is on 20 mg of from atorvastatin which will be continued. Patient does have history of atrial fibrillation is on Eliquis 2.5 twice a day which will be switched to 5 mg twice a day as recommended by neurology and patient will be discharged today. Patient does have history of multiple myeloma. Patient's symptoms, particularly neurologic symptoms completely resolved. PHYSICAL EXAMINATION: GENERAL: The patient is alert and oriented x3, not in any acute distress. Well developed, well nourished. HEENT: Pupils are round and equally reacting to light. EOMI. No scleral icterus. No conjunctival pallor. Normocephalic, atraumatic. No pharyngeal erythema. No thyromegaly. CARDIOVASCULAR: S1 and S2 present. No murmurs, rubs, or gallops. PULMONARY: Chest is clear to auscultation, no wheezing or crackles. ABDOMEN: Soft, nontender, nondistended, normoactive bowel sounds. No palpable organomegaly. MUSCULOSKELETAL: No joint swelling or deformity. EXTREMITIES: No cyanosis, clubbing, or pedal edema. NEUROLOGICAL: Gross neurological examination did not reveal any focal deficits. SKIN: No rashes. The rest of her chronic medical problems hospitalization course please refer to dictation from Dr. Walsh from yesterday. Plan - Discharge Summary Discharge Rx Participant: No New Discharge Prescriptions: New Apixaban [Eliquis] 5 mg PO BID #0 tab Continue Lovastatin [Mevacor] 20 mg PO DAILY metFORMIN HCL [Glucophage] 1,000 mg PO BID buPROPion [Wellbutrin] 300 mg PO DAILY QUEtiapine FUMARATE [SEROquel] 25 mg PO HS Omeprazole [PriLOSEC] 20 mg PO DAILY Folic Acid 1 mg PO DAILY Dexamethasone [Decadron] 40 mg PO VALVERDE Carvedilol [Coreg] 3.125 mg PO BID Budesonide-Formot 160-4.5 Mcg [Symbicort 160-4.5 Mcg Inhaler] 2 puff INHALATION RT-BID Acyclovir [Zovirax] 400 mg PO BID Dicyclomine [Bentyl] 40 mg PO HS Tiotropium [place] [Spiriva Respimat] 1 puff INHALATION RT-DAILY Lisinopril [Zestril] 20 mg PO DAILY LORazepam [Ativan] 0.5 mg PO Q6H PRN PRN Reason: Agitation Lipase/Protease/Amylase [[place] 24,000 Units Capsule] 48,000 units PO AC- TID Discontinued Apixaban [Eliquis] 5 mg PO BID #60 tablet Discharge Medication List Lovastatin [Mevacor] 20 mg PO DAILY 09/25/18 [History] metFORMIN HCL [Glucophage] 1,000 mg PO BID 09/25/18 [History] Acyclovir [Zovirax] 400 mg PO BID 11/20/18 [History] Budesonide-Formot 160-4.5 Mcg [Symbicort 160-4.5 Mcg Inhaler] 2 puff INHALATION RT-BID 11/20/18 [History] Carvedilol [Coreg] 3.125 mg PO BID 11/20/18 [History] Dexamethasone [Decadron] 40 mg PO VALVERDE 11/20/18 [History] Folic Acid 1 mg PO DAILY 11/20/18 [History] Omeprazole [PriLOSEC] 20 mg PO DAILY 11/20/18 [History] QUEtiapine FUMARATE [SEROquel] 25 mg PO HS 11/20/18 [History] buPROPion [Wellbutrin] 300 mg PO DAILY 11/20/18 [History] Dicyclomine [Bentyl] 40 mg PO HS 01/13/19 [History] LORazepam [Ativan] 0.5 mg PO Q6H PRN 01/13/19 [History] Lipase/Protease/Amylase [[place] 24,000 Units Capsule] 48,000 units PO AC-TID 01/13/19 [History] Lisinopril [Zestril] 20 mg PO DAILY 01/13/19 [History] Tiotropium [place] [Spiriva Respimat] 1 puff INHALATION RT-DAILY 01/13/19 [History] Apixaban [Eliquis] 5 mg PO BID #0 tab 01/19/19 [Rx] Follow up Appointment(s)/Referral(s): Tru Ferrell DO [STAFF PHYSICIAN] - 1 Week Jane Escobar MD [Primary Care Provider] - 3 Days Discharge Disposition: HOME SELF-CARE
--- NOTE | 2019-01-19 10:37 | CDI ---
Documentation Clarification Form Date: 01/19/2019 10:26:52 AM From: Nubia Varela RN, CCDS Admit Date: 01/18/2019 12:55:00 PM Patient Name: Gary Tristan Visit Number: [id number] Discharge Date: ATTENTION: The Clinical Documentation Specialists (CDI) and [facility] Coding Staff appreciate your assistance in clarifying documentation. Please respond to the clarification below the line at the bottom and electronically sign. The CDI & [facility] Coding staff will review the response and follow-up if needed. Please note: Queries are made part of the Legal Health Record. If you have any questions, please contact the author of this message via ITS. Dr. Finn Walsh Atrial Fibrillation is documented in the in past medical history and your H/P and further clarification is needed. History/Risk Factors: Atrial Fibrillation, COPD, Diabetes Mellitus, Hypertension, Multiple Myeloma, Hydrocephalus with LEATHER SEASONER shunt Clinical Indicators: 68-year-old male who present for evaluation of confusion, slurred speech, mild right-sided facial droop and right leg dragging. He has a past medical history of atrial fibrillation with ongoing treatment. EKG/telemetry: Atrial Fibrillation rate of 84 Treatment: Telemetry monitoring Eliquis 5 mg PO Asa PO daily Monitor PT/INR In your professional opinion, can you please clarify the type of Atrial Fibrillation, if known? Chronic/Permanent Paroxysmal Persistent Other, please specify Unable to determine (Last Revision: September 2017) Chronic/Permanent MTDD
[2019-01-19 10:53] VITALS: BP 135/95; PULSE 74; TEMP 97.5
[2019-01-19] MEDS: SYMBICORT 160-4.5 MCG INHALER INHALATION SCH (12:11)
--- NOTE | 2019-01-19 17:02 | P.CONS ---
History of Present Illness - Reason for Consult Consult date: 01/19/19 On treatment for Multiple myeloma Requesting physician: Alexei Acuña - Chief Complaint TIA symptoms - History of Present Illness Mr Tristan is a very pleasant 68-year-old male patient of Dr. Ervin who is being treated for IgG kappa MM. Pt brought him back to [place] from [place] due to AMS and delirium in early 2018. He was found to be anemic by PCP and sent to [facility], Hgb was 6.6, WBC 3.8, platelet 180,000, calcium 10, BUN 22/creatinine 2.04, CT of the brain that was negative, CT of the abdomen with some left lower quadrant diverticulitis. EKG showed normal sinus rhythm, occult stool was negative. He was transfused with 1 unit of blood and at patient/family request transferred to [facility], there they met Dr. Mulligan. During 37 day hospitalization (September 25-November 05) patient had an extraordinarily eventful hospital stay (Aspiration pneumonia, intubated, fall, sepsis). He was ultimately diagnosed with IgG kappa MM, 3.4 g/dL, 80% plasma cells, on 10/09/2018 he started cyBorD, he is s/p cycle 4 day 8. Patient was on Lovenox for bilateral lower extremity DVT, I'm unable to say exactly when he was switched over to [place], he is currently admitted for TIA symptoms. When seen patient has no residual symptoms on the right side notable. Patient otherwise states feeling pretty well, he is tolerating his myeloma treatment well. Review of Systems 14 point review of systems is as stated in HPI, patient does have poor recall about his medical history Past Medical History Past Medical History: Atrial Fibrillation, Asthma, Cancer, COPD, Diabetes Mellitus, Deep Vein Thrombosis (DVT), Hypertension, Pneumonia Additional Past Medical History / Comment(s): Pt recently seen in [facility] ER on 09/25/18 for low hgb, R lower back hematoma, auditory and visual hallucinations, encephalopathy and was transferred to [facility]. At [facility] pt was diagnosed with multi ple myeloma stage III with bone lesions (bilateral hips/femurs and spine), cognitive deficit thought d/t cancer. Pt had aspiration pneumonia while there and was intubated/vented. He was septic. He also had falls. Other diagnosis while at [facility] include acute renal failure, anemia, bilateral lower extremity DVTs, spleenomegaly. He was started on chemotherapy. 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 Past Anesthesia/Blood Transfusion Reactions: No Reported Reaction Additional Past Anesthesia/Blood Transfusion Reaction / Comm: Pt has received blood without reaction. Date of Last Stent Placement:: 2008 in [facility] Past Psychological History: Depression Smoking Status: Former smoker Past Alcohol Use History: Rare Past Drug Use History: None Reported - Past Family History Father Additional Family Medical History / Comment(s): Father had NPH with a DENTAL LABORATORY TECHNICIAN shunt. He lived to be 84 yrs old. Mother Family Medical History: Deep Vein Thrombosis (DVT) Additional Family Medical History / Comment(s): Mother at the age of 62- suspect d/t DVTs. Medications and Allergies Home Medications Medication Instructions Recorded Confirmed Type Lovastatin [Mevacor] 20 mg PO DAILY 09/25/18 01/18/19 History metFORMIN HCL [Glucophage] 1,000 mg PO BID 09/25/18 01/18/19 History Acyclovir [Zovirax] 400 mg PO BID 11/20/18 01/18/19 History Budesonide-Formot 160-4.5 Mcg 2 puff INHALATION RT-BID 11/20/18 01/18/19 History [Symbicort 160-4.5 Mcg Inhaler] Carvedilol [Coreg] 3.125 mg PO BID 11/20/18 01/18/19 History Dexamethasone [Decadron] 40 mg PO VALVERDE 11/20/18 01/18/19 History Folic Acid 1 mg PO DAILY 11/20/18 01/18/19 History Omeprazole [PriLOSEC] 20 mg PO DAILY 11/20/18 01/18/19 History QUEtiapine FUMARATE [SEROquel] 25 mg PO HS 11/20/18 01/18/19 History buPROPion [Wellbutrin] 300 mg PO DAILY 11/20/18 01/18/19 History Dicyclomine [Bentyl] 40 mg PO HS 01/13/19 01/18/19 History LORazepam [Ativan] 0.5 mg PO Q6H PRN 01/13/19 01/18/19 History Lipase/Protease/Amylase [Creon Dr 48,000 units PO AC-TID 01/13/19 01/18/19 History 24,000 Units Capsule] Lisinopril [Zestril] 20 mg PO DAILY 01/13/19 01/18/19 History Tiotropium [place] [Spiriva 1 puff INHALATION RT-DAILY 01/13/19 01/18/19 History Respimat] Apixaban [Eliquis] 5 mg PO BID #0 tab 01/19/19 Rx Allergies Allergy/AdvReac Type Severity Reaction Status Date / Time No Known Allergies Allergy Verified 01/18/19 10:58 Physical Exam Vitals: Vital Signs Temp Pulse Pulse Pulse Resp BP BP 01/19/19 08:00 97.5 F L 77 74 16 135/95 01/19/19 04:16 97.6 F 92 16 165/90 01/19/19 00:40 74 16 138/94 01/18/19 22:45 140/90 01/18/19 21:11 98.0 F 95 16 148/101 01/18/19 16:00 98.0 F 88 16 152/99 01/18/19 14:31 79 17 01/18/19 14:00 98.2 F 87 20 137/97 Pulse Ox 01/19/19 08:00 96 01/19/19 04:16 94 L 01/19/19 00:40 94 L 01/18/19 22:45 01/18/19 21:11 98 01/18/19 16:00 96 01/18/19 14:31 98 01/18/19 14:00 98 Intake and Output 01/18/19 01/19/19 01/19/19 22:59 06:59 14:59 Intake Total 240 240 Balance 240 240 Intake: Oral 240 240 Other: Voiding Method Toilet Toilet Toilet # Voids 0 2 0 # Bowel Movements 1 Weight 128.7 kg - Constitutional General appearance: average body habitus, cooperative, no acute distress - EENT Eyes: anicteric sclerae, EOMI ENT: hearing grossly normal, normal oropharynx - Neck Neck: no lymphadenopathy - Respiratory Respiratory: bilateral: CTA - Cardiovascular Heart sounds: normal: S1, S2 Abnormal Heart Sounds: no systolic murmur, no diastolic murmur, no rub, no S3 Gallop, no S4 Gallop, no click, no other leg Peripheral Edema: right: 2+, left: Trace - Gastrointestinal General gastrointestinal: no absent bowel sounds, no decreased bowel sounds, no distended, no hepatomegaly, no hyperactive bowel sounds, normal bowel sounds, no organomegaly, no rigid, no scaphoid, soft, no splenomegaly, no tenderness, no umbilical hernia, no ventral hernia - Integumentary Integumentary: normal - Neurologic upper and lower extremity strength is equal bilaterally - Psychiatric Psychiatric: A&O x's 3, appropriate affect Results CBC & Chem 7: 01/18/19 11:03 01/18/19 11:03 Labs: Abnormal Lab Results - Last 24 Hours (Table) 01/18/19 01/18/19 01/18/19 Range/Units 11:03 17:25 21:14 POC Glucose (mg/dL) 141 H 111 H (75-99) mg/dL Triglycerides 183 H (<150) mg/dL HDL Cholesterol 36 L (40-60) mg/dL 01/19/19 Range/Units 06:36 POC Glucose (mg/dL) 106 H (75-99) mg/dL Triglycerides (<150) mg/dL HDL Cholesterol (40-60) mg/dL CT Scan - head: report reviewed Assessment and Plan (1) TIA (transient ischemic attack) Narrative/Plan: Defer management of the same to Neurology Status: Acute Priority: High Code(s): G45.9 - TRANSIENT CEREBRAL ISCHEMIC ATTACK, UNSPECIFIED SNOMED Code(s): 610157725 (2) History of multiple myeloma Narrative/Plan: Patient is currently on CyBorD regimen s/p cycle 4 day 8-he still has days 11,15 and 22 to complete. These will be rescheduled. Status: Chronic Priority: Medium Code(s): Z85.79 - PRSNL HX OF MALIG NEOPLM OF LYMPHOID, HEMATPOETC & REL TISS SNOMED Code(s): 674380239398201 Plan: Doctor attests: I performed the history and physical examination of this patient, developed impression and plan of care, discussed with dictator. I agree with dictators note, documented as a scribe.
[2019-01-24] MEDS ORDERED: DEXAMETHASONE 4 MG TAB PO SCH (09:00)
== END 2019-01-19 11:57 | disposition home or self-care (01) | DRG 69 ==
LOC: EC 10:38 → 3SCARD 12:55
PROVIDERS: ADMIT Hospitalist; ATTEND Hospitalist
DX: G45.9 Transient cerebral ischemic attack, unspecified (principal); C90.00 Multiple myeloma not having achieved remission; G91.9 Hydrocephalus, unspecified; E11.40 Type 2 diabetes mellitus with diabetic neuropathy, unspecified; I48.2 Chronic atrial fibrillation; J44.9 Chronic obstructive pulmonary disease, unspecified; I45.10 Unspecified right bundle-branch block; D64.9 Anemia, unspecified; I10 Essential (primary) hypertension; E78.5 Hyperlipidemia, unspecified; G47.33 Obstructive sleep apnea (adult) (pediatric); I25.10 Atherosclerotic heart disease of native coronary artery without angina pectoris; F32.9 Major depressive disorder, single episode, unspecified; I08.0 Rheumatic disorders of both mitral and aortic valves; H35.30 Unspecified macular degeneration; H54.8 Legal blindness, as defined in USA; Z79.01 Long term (current) use of anticoagulants; Z79.51 Long term (current) use of inhaled steroids; Z79.52 Long term (current) use of systemic steroids; Z79.84 Long term (current) use of oral hypoglycemic drugs; Z79.899 Other long term (current) drug therapy; Z91.81 History of falling; Z86.718 Personal history of other venous thrombosis and embolism; Z87.01 Personal history of pneumonia (recurrent); Z86.73 Personal history of transient ischemic attack (TIA), and cerebral infarction without residual deficits; Z98.2 Presence of cerebrospinal fluid drainage device; Z86.14 Personal history of Methicillin resistant Staphylococcus aureus infection; Z95.5 Presence of coronary angioplasty implant and graft; Z87.891 Personal history of nicotine dependence; Z85.828 Personal history of other malignant neoplasm of skin; Z83.2 Family history of diseases of the blood and blood-forming organs and certain disorders involving the immune mechanism
CPT/HCPCS: 36415; 70450; 70496; 70498; 71046; 80053; 80061; 85025; 85610; 85730; 93005; 99285